=== PATIENT | male | born 1940 | race Caucasian/White ===

== ENCOUNTER 2017-09-18 16:24 | Inpatient (IN) | payer OTHER, MEDICARE ==
[~2017-09-18] VITALS: Ht 177.8 cm; Wt 92.3 kg
[~2017-09-18 16:24] MED LIST: ASPIR 8181 MG PO; DELTASONE20 MG PO; DIOVAN HCT 12.51 TA2 PO; JANUVIA100 M1 PO; LOPRESSOR 25MG25 MG PO; METFORMIN HYDR750 MG PO; PEPCID40 M1 PO; TAMSULOSIN HCL0.4 M1 PO; VITAMIN D1000 IU PO
--- NOTE | 2017-09-18 17:01 | ED GENERAL ADULT ---
History of Present Illness General Chief Complaint: Fever Stated Complaint: FEVER Source: patient, family (DAUGHTER) Exam Limitations: no limitations Vital Signs & Intake/Output Vital Signs & Intake/Output Vital Signs Date Time Temp Pulse Resp B/P B/P Pulse O2 O2 Flow FiO2 Mean Ox Delivery Rate 09/18 2208 98.2 69 20 122/70 94 Room Air 09/18 2113 Room Air 09/18 1958 100.2 77 18 122/59 93 Room Air 09/18 1839 102.7 75 18 131/64 94 Room Air 09/18 1640 95 Room Air 09/18 1635 99.5 79 18 161/77 95 Room Air Allergies Coded Allergies: Penicillins (UNKNOWN 11/17/15) Reconcile Medications Metformin HCl 1,000 MG TABLET 1 TAB PO BID DM (Reported) Omeprazole 20 MG CAPSULE.DR 1 CAP PO DAILY GI (Reported) Tamsulosin HCl 0.4 MG CAP.ER.24H 1 CAP PO DAILY PROSTATE (Reported) Valsartan/Hydrochlorothiazide (Valsartan-Hctz 80-12.5 MG Tab) 80 MG-12.5 MG TABLET 1 TAB PO DAILY HTN (Reported) Triage Note: 77 Y/O, BIBA FROM HOME FOR CONTINUOUS FEVER. PT HAS HX OF TYPE 2 DM AND CIRRHOSIS AND RECENTLY HAD A BASAL CELL CARCINOMA REMOVED X 2WKS AGO FROM EAR WITH STITCHES REMOVED LAST WEEK. PER FAMILY PT STARTED WITH FEVER ON SUN AND YESTERDAY HE WAS IN THE 102'S TILL TODAY. PT ARRIVES A/OX2 SLIGHTLY FEBRILE AT 99.5. PT TOOK 650MG OF TYLENOL AT 1400 FOR A FEVER OF 102. PT DENIES PAIM OR ANY DISCOMFORT AT PRESENT. AWAITING PROVIDER EVAL Triage Nurses Notes Reviewed? yes Onset: Abrupt Duration: day(s): (3), constant, continues in ED, getting worse Timing: single episode today Injury Environment: home Severity: moderate, severe No Modifying Factors: none Associated Symptoms: cough HPI: 77-year-old male past medical history of cirrhosis, diabetes, hypertension presents for evaluation of fever cough and congestion. Patient reports that symptoms started about 3 days ago not been persistent. He reports temperatures of 102 today. He had a chest x-ray and blood work done by his primary care doctor which were normal but his fever has persisted. He's been taking Tylenol thousand milligrams every 6 hours with only mild improvement. He denies any chest pain shortness of breath hemoptysis or lower extremity edema abdominal pain nausea vomiting. No rashes. He did recently have surgery 2 weeks ago to remove basal cell from behind his right ear. He also had an ultrasound done on the 16th of this month that showed a small volume ascites without other acute abnormalities. He has no abdominal pain no chest pain. No urinary symptoms. He also reports associated weakness. He states that he's been having difficulty getting out of bed and ambulating. No dizziness or lightheadedness. (Thierry Luke) Past History Travel History Traveled to [place] past 21 day No Medical History Any Pertinent Medical History? 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 No (Thierry Luke) Review of Systems Review of Systems Constitutional: Reports: fever, malaise, weakness. EENTM: Reports: no symptoms. Respiratory: Reports: see HPI, cough, sputum production. Cardiovascular: Reports: no symptoms. GI: Reports: no symptoms. Genitourinary: Reports: no symptoms. Musculoskeletal: Reports: no symptoms. Skin: Reports: no symptoms. Neurological/Psychological: Reports: no symptoms. Hematologic/Endocrine: Reports: no symptoms. Immunologic/Allergic: Reports: no symptoms. All Other Systems: Reviewed and Negative (Thierry Luke) Physical Exam Physical Exam General Appearance: well developed/nourished, no apparent distress, alert, awake Head: atraumatic, normal appearance Eyes: Bilateral: normal appearance, PERRL, EOMI. Ears, Nose, Throat: normal pharynx, normal ENT inspection, hearing grossly normal Neck: normal inspection, supple, full range of motion, NO JVD Respiratory: chest non-tender, no respiratory distress, quiet respiration, decreased breath sounds, crackles (RT SIDE) Cardiovascular: regular rate/rhythm, normal peripheral pulses Peripheral Pulses: 2+ radial (R), 2+ radial (L) Gastrointestinal: normal bowel sounds, soft, non-tender, no organomegaly, distention Back: normal inspection, normal range of motion, no vertebral tenderness Extremities: normal inspection, normal range of motion, no edema Neurologic/Psych: no motor/sensory deficits, awake, alert, oriented x 3 Skin: intact, normal color, warm/dry Lymphatic: no anterior cervical rubia Core Measures ACS in differential dx? No CVA/TIA Diagnosis: No Sepsis Present: No Sepsis Focused Exam Completed? No (Luis STEARNS,Thierry) Progress Differential Diagnoses I considered the following diagnoses in my evaluation of the patient: [Pneumonia , UTI, cellulitis, PE, acute bronchitis, influenza, COPD, CHF exacerbation, spontaneous bacterial peritonitis, cholangitis] Plan of Care: Orders Procedure Date/time Status Regular Diet 09/19 B Active CULTURE,URINE 09/19 2223 Active STREP PNEUMO URINARY ANTIGEN 09/19 2223 Active LEGIONELLA URINARY ANTIGEN 09/19 2223 Active LOWER RESPIRATORY CULTURE 09/19 2223 Active C.DIFFICILE 09/19 2223 Active Weight 09/18 2099 Active Vital Signs 09/18 2099 Active Teach/Educate 09/18 2099 Active Pain Treatment and Response 09/18 2099 Active Nutritional Intake, Monitor 09/18 2099 Active Isolation 09/18 2099 Active Intake & Output 09/18 2099 Active Patient Care Conference 09/18 2099 Active Activity/Ambulation 09/18 2099 Active Patient Data 09/18 2008 Active OXYGEN SETUP (GEN) 09/18 1958 Active Saline Lock 09/18 1958 Active Admit to inpatient 09/18 1958 Active Vital Signs 09/18 1958 Active Activity/Ambulation 09/18 1958 Active Code Status 09/18 1958 Active LACTIC ACID 09/18 1927 Complete Add-on Test (ER Only) 09/18 1748 Active Add-on Test (ER Only) 09/18 1743 Active PARTIAL THROMBOPLASTIN TIME 09/18 1705 Complete PROTHROMBIN TIME 09/18 1705 Complete B-TYPE NATRIURETIC PEP (BNP) 09/18 1705 Complete Add-on Test (ER Only) 09/18 1637 Active Intake & Output 09/18 1637 Active RAPID VIRAL INFLUENZA A 09/18 162 Complete BLOOD CULTURE 09/18 162 Active URINALYSIS 09/18 1627 Complete TROPONIN LEVEL 09/18 162 Complete LACTIC ACID 09/18 162 Complete D-DIMER 09/18 162 Complete COMPREHENSIVE METABOLIC PANEL 09/18 1627 Complete CBC WITHOUT DIFFERENTIAL 09/18 1626 Complete EKG 09/18 1626 Active Laboratory Tests 09/18/172009: Urine Color ABHINAV, Urine Clarity CLEAR, Urine pH 5.5, Ur Specific [place] 1.015, Urine Protein TRACE H, Urine Ketones NEG, Urine Nitrite NEG, Urine Bilirubin NEG@ICTO, Urine Urobilinogen 0.2, Ur Leukocyte Esterase NEG, Ur Microscopic SEDIMENT EXAMINED, Urine RBC RARE, Urine WBC RARE, Ur Epithelial Cells RARE, Urine Bacteria RARE H, Urine Hemoglobin NEG, Urine Glucose NEG 09/18/17 1922: Lactic Acid 2.0 09/18/17 180: PT 17.9 H, INR 1.63 H, APTT 39 H, D-Dimer High Sensitivty 2311 H 09/18/17 1705: Anion Gap 12, Estimated GFR 59 L, BUN/Creatinine Ratio 18.3, Glucose 127 H, Lactic Acid 2.6 H, Calcium 9.6, Total Bilirubin 2.6 H, AST 153 H, ALT 107 H, Alkaline Phosphatase 354 H, Troponin I < 0.01, Lfu-B-Eshetxyjibt Pept 739 H, Total Protein 8.6 H, Albumin 3.4 L, Globulin 5.2 H, Albumin/Globulin Ratio 0.7 L, RBC 4.86, MCV 93.7, MCH 31.9 H, MCHC 34.0, RDW 15.3 H, MPV 10.5 H, Gran % 58.9, Lymphocytes % 28.8, Monocytes % 10.1 H, Eosinophils % 1.8, Basophils % 0.4, Absolute Granulocytes 4.0, Absolute Lymphocytes 2.0, Absolute Monocytes 0.7 H, Absolute Eosinophils 0.1, Absolute Basophils 0 Microbiology 09/19 2223 URINE ROUT: Legionella Antigen - ORD 09/19 2223 URINE ROUT: Streptococcus pneumoniae Antigen (M - ORD 09/19 2223 URINE ROUT: Urine Culture - ORD 09/19 2223 LOWER RESP: Respiratory Culture - ORD 09/19 2223 LOWER RESP: Gram Stain - ORD 09/19 2223 STOOL: Clostridium difficile Toxin A & B - ORD 09/18 175 BLOOD: Blood Culture - RECD 09/18 172 NASOPHARYN: Influenza Virus A & B Rapid Smear - COMP 09/18 1705 BLOOD: Blood Culture - RECD Patient seen and evaluated. He currently has a low-grade temp of 99 that spiked up to 102 while here. He's been maxing out on Tylenol and has a history of cirrhosis. Patient was given 15 mg of IV Toradol with good effect. He has a mildly elevated lactic acid of 2.6. Fluids ordered. Chest x-ray shows evidence of peribronchial and interstitial thickening which could represent infectious versus pulmonary edema etiology. Patient does not appear to have any lower extremity edema OR JVD he has no history of CHF. Age-adjusted BNP negative. A CTA was ordered for further evaluation and to rule out PE. CTA shows evidence of interstitial edema versus infiltrate in the right upper and right lower lobe. Due to patient's history of fever cough productive of yellow sputum this likely represents a pneumonia. Patient was started on ceftriaxone and Zithromax. Cultures obtained. Patient will be admitted to the hospital for further evaluation and treatment. His abdomen is soft and nontender. Considered spontaneous bacterial peritonitis however there are no peritoneal signs he has no white count. Patient had a normal ultrasound on the . Case discussed with Dr. HILARIO he agrees. Diagnostic Imaging: Viewed by Me: CT Scan. Discussed w/RAD: CT Scan. Radiology Impression: PATIENT: CURTIS MOLINA JR PRESENT AGE: 77 PATIENT ACCOUNT NO: [id number] : 40 LOCATION: [facility] ORDERING PHYSICIAN: Thierry STEARNS SERVICE DATE: 09/18/17 EXAM TYPE: CAT - CTA CHEST-PULMONARY EMBOLISM EXAMINATION: CT ANGIOGRAM OF THE CHEST WITH AND WITHOUT CONTRAST (CT PULMONARY ANGIOGRAM FOR PE) CLINICAL INFORMATION: Reason for Study:
Presumptive Dx: PNA, PE
Signs Symptoms: COUGH FVEER SOB
COMPARISON: 07/27/2017 TECHNIQUE: Prior to contrast administration, noncontrast localization images were obtained. Subsequently, multidetector volumetric imaging was performed from the thoracic inlet to below the diaphragms following the administration of 80 mL Omnipaque 350 intravenous contrast. No contrast reaction reported. Sagittal, coronal, and MIP oblique sagittal reformatted images were obtained on the CT workstation, uploaded to PACS, and reviewed. Findings: This exam is limited. There is patient respiratory motion which limits the exam. Some small peripheral emboli cannot be excluded but there is certainly no central filling defect. Centrally once again there are prominent lymph nodes here. Precarinal lymph node 1.4 cm short axis. Subcarinal probable adenopathy. 1.6 cm short axis. This is prominent. Further evaluation is warranted. Imaging lung shields as described is limited due to this patient's respiratory motion artifact. Persistent nodularity in the right upper lung and in addition there is patchy areas of opacification in the right upper lung zone laterally and the right base. In the left lung no significant infiltrate or effusion. Some probable dependent atelectasis. There is also some interstitial prominence here bilaterally. Certainly element of CHF would need to be considered. Partial imaging the spleen demonstrates probable splenomegaly. There appears to be some ascites in the upper abdomen as well. IMPRESSION: There is some limitation from respiratory motion however given this there is no convincing evidence of a filling defect to represent a pulmonary embolism. If suspicion remains high then consider extremity Dopplers and/or VQ scan. Overall increased interstitial pattern in the lungs. Findings may suggest interstitial edema. In addition some focal airspace disease in the right upper lobe and right base represent edema or areas of infiltrate. Also on this study very prominent central lymphadenopathy. This may be reactive but malignancy would need to be considered. Recommendation is PET/CT to further evaluate in this patient. Partially imaged upper abdomen shows probable mild ascites and probable splenomegaly. DICTATED BY: Marcellus Maurer MD DATE/TIME DICTATED:09/18/171930 DEAN OF MEN:HOLA DATE/TIME TRANSCRIBED:09/18/171930 CONFIDENTIAL, DO NOT COPY WITHOUT APPROPRIATE AUTHORIZATION. <Electronically signed in Other Vendor System> SIGNED BY: Marcellus Maurer MD 09/18/171944 Initial ED EKG: normal sinus rhythm, BORDERLINE LEFT AXIS DEVIATION, BORDERLINE t-WAVE ABNORMALITIES INFERIOR LEADS Prior EKG: unchanged Rhythm Strip: normal sinus rhythm (Black PA,Thierry) Departure Departure Disposition: STILL A PATIENT Condition: Stable Clinical Impression Primary Impression: Pneumonia Qualifiers: Pneumonia type: due to unspecified organism Laterality: right Lung location: unspecified part of lung Qualified Code: J18.9 - Pneumonia, unspecified organism Referrals: Ever KENT,Maxi Marroquin (PCP/Family) Departure Forms: Customer Survey General Discharge Information Admission Note Spoke With: Car Thomas MD Documentation of Exam: Documentation of any treatments & extenuating circumstances including Concerns Regarding Discharge (functional status, medication knowledge or non-compliance, living conditions, etc.) that warrant an admission rather than observation: [ SERIAL LABS, SERIAL CHEST X-RAYS, IV ABX, CARDIOLOGY/PULMONOLOGY, MEDICATION ADJUSTMENT MONIORING OF VITAL SIGNS] (Thierry Luke) PA/CLINICAL STUDIES SPECIALIST Co-Sign Statement Statement: ED Attending supervision documentation- x I saw and evaluated the patient. I have also reviewed all the pertinent lab results and diagnostic results. I agree with the findings and the plan of care as documented in the PA's/CLINICAL STUDIES SPECIALIST's documentation. Fever, cough, weakness with pneumonia [] I have reviewed the ED Record and agree with the PA's/CLINICAL STUDIES SPECIALIST's documentation. [] Additions or exceptions (if any) to the PAs/CLINICAL STUDIES SPECIALIST's note and plan are summarized below: [] (Shirin KENT,Sunny) Critical Care Note Critical Care Note Critical Care Time: non-applicable (Thierry Luke)
--- NOTE | 2017-09-18 17:11 | RADIOLOGY REPORT ---
EXAMINATION: XR PORTABLE CHEST CLINICAL INFORMATION: Pneumonia. Fever. COMPARISON: 09/17/2017 TECHNIQUE: AP portable upright view of the chest FINDINGS: Lung volumes are low. There is prominence of the peribronchial vascular interstitium with bronchial wall thickening. This could be due to pulmonary venous congestion and bilateral interstitial edema or small airways inflammation. No focal consolidation is identified. No pleural effusion or pneumothorax. IMPRESSION: Thickening of the central bronchial interstitium which could be due to airways inflammation from viral/atypical infection. Pulmonary interstitial edema and venous congestion also possible.
[2017-09-18] MEDS ORDERED: OMEPRAZOLE20 M2 PO (17:14)
[2017-09-18] MEDS ORDERED: METFORMIN HCL1000 M1 PO (17:14)
[2017-09-18] MEDS ORDERED: VALSARTAN-HCTZ1 EACH PO (17:14)
[2017-09-18 18:10] LABS: ABSOLUTE BASOPHIL COUNT 0 /CUMM (0.0-0.2); ABSOLUTE EOSINOPHIL COUNT 0.1 /CUMM (0.0-0.7); ABSOLUTE MONOCYTE COUNT 0.7 /CUMM (0.10-0.60); BASOPHIL % 0.4 % (0.0-2.0); EOSINOPHIL % 1.8 % (0-5); GRANULOCYTE % 58.9 % (42.2-75.2); HEMATOCRIT 45.6 % (42-52); MEAN CORPUSCULAR HGB 31.9 PG (27.0-31.0); MEAN CORPUSCULAR VOLUME 93.7 FL (80.0-94.0); MEAN PLATELET VOLUME 10.5 FL (7.4-10.4); RBC DISTRIBUTION WIDTH 15.3 % (11.5-14.5); RED BLOOD CELL CT 4.86 /CUMM (4.70-6.10); WHITE BLOOD CELL COUNT 6.8 /CUMM (4.8-10.8)
[2017-09-18 18:12] LABS: PLATELET COUNT 48 /CUMM (130-400)
[2017-09-18 18:20] LABS: PT 17.9 SEC (9.4-12.5); PTT 39 SEC (25-37)
--- NOTE | 2017-09-18 19:45 | CT SCAN REPORT ---
EXAMINATION: CT ANGIOGRAM OF THE CHEST WITH AND WITHOUT CONTRAST (CT PULMONARY ANGIOGRAM FOR PE) CLINICAL INFORMATION: Reason for Study:
Presumptive Dx: PNA, PE
Signs Symptoms: COUGH FVEER SOB
COMPARISON: 07/27/2017 TECHNIQUE: Prior to contrast administration, noncontrast localization images were obtained. Subsequently, multidetector volumetric imaging was performed from the thoracic inlet to below the diaphragms following the administration of 80 mL Omnipaque 350 intravenous contrast. No contrast reaction reported. Sagittal, coronal, and MIP oblique sagittal reformatted images were obtained on the CT workstation, uploaded to PACS, and reviewed. Findings: This exam is limited. There is patient respiratory motion which limits the exam. Some small peripheral emboli cannot be excluded but there is certainly no central filling defect. Centrally once again there are prominent lymph nodes here. Precarinal lymph node 1.4 cm short axis. Subcarinal probable adenopathy. 1.6 cm short axis. This is prominent. Further evaluation is warranted. Imaging lung shields as described is limited due to this patient's respiratory motion artifact. Persistent nodularity in the right upper lung and in addition there is patchy areas of opacification in the right upper lung zone laterally and the right base. In the left lung no significant infiltrate or effusion. Some probable dependent atelectasis. There is also some interstitial prominence here bilaterally. Certainly element of CHF would need to be considered. Partial imaging the spleen demonstrates probable splenomegaly. There appears to be some ascites in the upper abdomen as well. IMPRESSION: There is some limitation from respiratory motion however given this there is no convincing evidence of a filling defect to represent a pulmonary embolism. If suspicion remains high then consider extremity Dopplers and/or VQ scan. Overall increased interstitial pattern in the lungs. Findings may suggest interstitial edema. In addition some focal airspace disease in the right upper lobe and right base represent edema or areas of infiltrate. Also on this study very prominent central lymphadenopathy. This may be reactive but malignancy would need to be considered. Recommendation is PET/CT to further evaluate in this patient. Partially imaged upper abdomen shows probable mild ascites and probable splenomegaly.
--- NOTE | 2017-09-18 20:37 | History & Physical ---
RonnyMaier 09/18/172035: General Information and HPI MD Statement: I have seen and personally examined CURTIS MOLINA and documented this H&P. The patient is a 77 year old M who presented with a patient stated chief complaint of generalized weakness and fever for 4-5 days []. Source of Information: patient, old records Exam Limitations: no limitations History of Present Illness: 77 YO M ex smoker with PMH of HTN, DM, alcoholic liver cirrhosis, the ventral hernia status post repair, cecal polyp status post right colectomy, chronic diarrhea, BPH, basal cell CA behind right ear s/p excision, obstructive sleep apnea on CPAP, thrombocytopenia and bilateral knee replacement came to ED with chief complaint of generalized weakness with fever for last 4-5 days. Patient reported that he was in his usual state of health about 5 days back when he suddenly started to notice generalized weakness and fever that goes up at nighttime. Patient also reported having sweating at nighttime. Patient also reported having loose bowel movements going on for last couple months. Patient reported that he called Dr. Boone and he advised him to go to ED for further evaluation. Patient denied any chest pain, short of breath, palpitation, dizziness, headache , nausea, vomiting, abdominal pain, constipation, loss of consciousness, sick contact, change in appetite and dysuria. Patient also reported that when he came to the hospital then he developed cough with whitish colored sputum. According to the patient before that there was no cough and sputum. 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 He used to drink 12 drinks every day usually vodka and wine. He is living with his and she is taking care of his medications. Patient also reported having orange colored urine for last couple of months. Last colonoscopy was done in July 2017 that showed transverse colon polyps and polypectomy was done. For chronic diarrhea patient was given Imodium and instructed to follow pathology report as outpatient. Endoscopy was done on same day that showed grade 2-3 esophageal varices without bleeding and moderate portal hypertensive gastropathy. Erosive gastritis and biopsies were taken and instructed to follow outpatient pathology results. Last echocardiogram was done in 2013 that showing ejection fraction more than 60 % with stage I diastolic dysfunction. ED course: Vitals: Temperature 1-2.7, pulse 75, respiratory rate 18, blood pressure 131/64, oxygen saturation 94% on room air Labs: WBC count 6.8, hemoglobin 15.5, hematocrit 45.6, platelet count 48, sodium 138, potassium 4.4, BUN 22, creatinine 1.2, anion gap 12, BUN/creatinine ratio 18.3, glucose 127, lactic acid 2.6, calcium 9.6, total bilirubin 2.6, AST 153, ALT 107, it was rated 354, troponin less than 0.01, proBNP 739, albumin 3.4, globulin 5.0, albumin/globulin ratio 0.7 Patient received 2 boluses of normal saline in ED because of elevated lactic acid. Allergies/Medications Allergies: Coded Allergies: Penicillins (UNKNOWN 11/17/15) Home Med list Metformin HCl 1,000 MG TABLET 1 TAB PO BID DM (Reported) Nadolol 20 MG TABLET 1 TAB PO DAILY LIVER HEALTH (Reported) Omeprazole 20 MG CAPSULE.DR 1 CAP PO DAILY GI (Reported) Tamsulosin HCl 0.4 MG CAP.ER.24H 1 CAP PO DAILY PROSTATE (Reported) Valsartan/Hydrochlorothiazide (Valsartan-Hctz 80-12.5 MG Tab) 80 MG-12.5 MG TABLET 1 TAB PO DAILY HTN (Reported) Past History Travel History Traveled to [place] past 21 day No Medical History Neurological: NONE EENT: NONE Cardiovascular: hypertension Respiratory: NONE Gastrointestinal: ventral hernia CIRRHOSIS Hepatic: NONE Renal: NONE Musculoskeletal: NONE Psychiatric: NONE Endocrine: diabetes Blood Disorders: NONE Cancer(s): NONE MANAGER OPERATIONS RESEARCH/Reproductive: NONE Surgical History Surgical History: colon polyp excision Past Family/Social History Psychosocial History Services at Home: None ETOH Use: occasional use Illicit Drug Use: denies illicit drug use Review of Systems Review of Systems Constitutional: Reports: fever, weakness. EENTM: Reports: no symptoms. Cardiovascular: Reports: no symptoms. Respiratory: Reports: see HPI. GI: Reports: diarrhea. Genitourinary: Reports: no symptoms. Musculoskeletal: Reports: no symptoms. Skin: Reports: no symptoms. Neurological/Psychological: Reports: no symptoms. Hematologic/Endocrine: Reports: no symptoms. Exam & Diagnostic Data Last 24 Hrs of Vital Signs/I&O Vital Signs Date Time Temp Pulse Resp B/P B/P Pulse O2 O2 Flow FiO2 Mean Ox Delivery Rate 09/19 0045 98.0 62 20 128/72 95 Room Air 09/18 2209 98.2 69 20 122/70 94 Room Air 09/18 2114 Room Air 09/18 1959 100.2 77 18 122/59 93 Room Air 09/18 1839 102.7 75 18 131/64 94 Room Air 09/18 1640 95 Room Air 09/18 1635 99.5 79 18 161/77 95 Room Air Intake & Output 09/19 0800 09/19 0000 09/18 1600 Intake Total 1000 Output Total Balance 1000 Intake, IV 1000 Patient 175 lb Weight Weight Reported by Patient Measurement Method Physical Exam General Appearance Alert, Oriented X3, Cooperative, No Acute Distress Skin No Rashes Skin Temp/Moisture Exam: Warm/Dry Sepsis Skin Exam (color): Normal for Ethnicity HEENT Atraumatic, PERRLA, EOMI Neck Supple Cardiovascular Normal S1, Normal S2 Lungs B/L crackles more on left side Abdomen Soft, No Tenderness Neurological Normal Speech, Strength at 5/5 X4 Ext, Normal Tone, Sensation Intact Extremities No Edema Assessment/Plan Assessment: 77 YO M ex smoker with PMH of HTN, DM, alcoholic liver cirrhosis, the ventral hernia status post repair, cecal polyp status post right colectomy, chronic diarrhea, BPH, basal cell CA behind right ear s/p excision, obstructive sleep apnea on CPAP, thrombocytopenia and bilateral knee replacement came to ED with chief complaint of generalized weakness with fever for last 4-5 days. We'll admit the patient on general medicine floor to treat for possible community-acquired pneumonia. Community-acquired pneumonia: -Supplemental oxygen if needed to keep his saturation above 92% -TRC nebulization as needed -Continue ceftriaxone and azithromycin -Urine for strep and legionella antigen -We will follow blood and sputum cultures -Trend lactic acid. -Chest physiotherapy History of alcoholic liver cirrhosis: -Continue nadolol for portal hypertension -Continue omeprazole -GI consult in a.m. -Ultrasound abdomen for ascites -Follow LFTs. Chronic thrombocytopenia: -Possibly due to alcoholic liver cirrhosis and portal hypertension. -Avoid any medication that decreases the function or count of platelets History of hypertension: -Continue home meds History of diabetes: -Accu-Cheks -HbA1c -Insulin NovoLog according to sliding scale History of BPH: -Continue tamsulosin DVT prophylaxis; -Mechanical only considering thrombocytopenia CODE STATUS: Full code As Ranked By This Provider Problem List: 1. Pneumonia Qualifiers Pneumonia type: due to unspecified organism Laterality: right Lung location: unspecified part of lung Qualified Code: J18.9 - Pneumonia, unspecified organism 2. Liver cirrhosis Core Measures/Misc (03/17) Acute Coronary Syndrome ACS Diagnosis: No Congestive Heart Failure Congestive Heart Failure Diagnosis No Cerebrovascular Accident CVA/TIA Diagnosis: No VTE (View Protocol) VTE Risk Factors Age>40 No Mechanical VTE Prophylaxis d/t N/A MechProphylax Ordered No VTE Pharm Prophylaxis d/t NA PharmProphylax ordered Sepsis (View protocol) Sepsis Present: No Estefany Del Toro 09/19/17 0201: Resident Review Statement Resident Statement: examined this patient, discussed with chief of internal medicine, agreed with chief of internal medicine Other Findings: Patient is 77-year-old male with past medical history significant for [id number] diabetes, hypertension, cecal polyp status post right colectomy, BPH, alcoholic liver cirrhosis, remote history of alcohol abuse 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 Patient endorses that since last he was experiencing chills and fever almost every night and also becoming more and more weak and lethargic. He has normal oral intake without any episodes of nausea, vomiting. He had chronic diarrhea for last 4 weeks where he had loose bowel movements multiple times a day. He does not remember using any antibiotics recently. From claim history it showed that he had clindamycin in March 2017. He used to drink 10-12 hard drinks per week for many years to March 2017 when he was diagnosed with cirrhosis. He is following Dr. Boone as outpatient on regular basis. Last colonoscopy and endoscopy was on 2017 showed erosive gastritis and moderate portal hypertensive gastropathy without gastroparesis. Patient denied any episodes of hematemesis. He endorses to have orange colored urine for last few months and also black stools for some time. He denied any diagnostic or therapeutic paracentesis in the past. Vital signs on admission were temperature 99.5 and he spiked 100 O2 around 6:39 PM, pulse 75, respiratory rate 18, blood pressure 131/64 and he saturating 94% on room air. Labs were significant for WBC count 6.8, hemoglobin 15.5, hematocrit 45.6, platelet count 48, sodium 138, potassium 4.4, BUN 22, creatinine 1.2, bilirubin 2.6, AST 153, AST 107, alkaline phosphatase 354, proBNP 739 Chest CTA showed no evidence of PE, persistent nodularity in the right upper lung and in addition there is patchy areas of opacification in right upper lung zone laterally in the right base. No significant infiltrate or effusion in left lung. EKG showed normal sinus rhythm with no acute ST-T wave changes On examination Alert and oriented 3 Head atraumatic HEENT PERRLA, moist mucous membranes Neck supple no JVD Chest auscultation showed bilateral basal crackles and rhonchi Abdomen protuberant, fluid thrill negative, no organomegaly, no tenderness, Extremities showed no peripheral edema Neurological deficit noted Assessment and plan 77-year-old male with a history of alcohol abuse, alcoholic liver cirrhosis, hypertension, diabetes, cecal polyp status post nephrectomy came in with chief complaint of worsening pathology weakness and intermittent fever for 4-5 days with imaging study concerning for pneumonia. Problem list 1. Fever and right lung infiltrate concerning for community-acquired pneumonia 2. History of ascites and liver cirrhosis to rule out SBP 3. History of hypertension 4. History of phd-ipofltv-qmfcxhvod diabetes 5. chronic thrombocytopenia Plan 1. We will admit patient to general medical floor and we will monitor his WBC count, electrolytes and liver functions. He has history of chronic thrombocytopenia and we will monitor his platelet counts. 2. We will start ceftriaxone and azithromycin for pneumonia and also ceftriaxone Will cover SBP as well as patient spiked fever and presence of ascites. Suspicion of SBP most likely slow given benign abdominal examination. 3. We will request abdominal ultrasound in the morning and if it there would be enough fluid to aspirate we will request diagnostic paracenteses 4. We will continue his home medications 5. We will request GI evaluation in a.m. 6. Close monitoring for any evidence of petechiae or bleeding Patient is full code No pharmacological DVT prophylaxis due to thrombocytopenia Heart healthy diet William KENT, [facility] 09/19/17 0639: Attending MD Review Statement Attending Statement Attending MD Statement: examined this patient, discuss w/resident/PA/TOOL PROFILING MACHINE SET UP OPERATOR, agreed w/resident/PA/TOOL PROFILING MACHINE SET UP OPERATOR, reviewed images, amended to note Attending Assessment/Plan: 77 yo M with h/o T2DM, HTN, YANG, recent diagnosis of alcoholic liver cirrhosis, is here for evaluation of fever, weakness and lethargy. Symptoms are ongoing for past 4-5 days. Tmax 102. His PCP did a CXR and CBC/BEP one day prior, negative work up. ER notes state that patient has been using tylenol every 6 hours, but patient does not confirm that. He reports having a cough productive of white/ yellow phlegm and states he just started having it. Night sweats++. He has chronic diarrhea for which he followed up with Dr. Boone, underwent EGD/ colonoscopy (Jul 2017). EGD showed grade 2-3 esophageal varices, portal hypertensive gastropathy and erosive gastritis. Colonoscopy showed single polyp (path negative), nonspecific colitis and internal hemorrhoids. I informed him about the results as he did not know about them. He does not know what meds he is on. He had an abdomen ultrasound on September 13 which shows small volume of ascites, gallbladder diffusely thick walled related to ascites, multiple gallstones and cholesterol crystals seen, enlarged spleen with multiple small massess ?hemangiomas. He denies abdominal distension or pain. Vitals: Tmax 102, sats 92% RA, otherwise stable. Exam: AAO, mild icterus+, dry mucous membranes, neck supple, Chest right sided rhonchi+, no wheezing or crackles, Heart S1S2 regular, Abd soft, distended, no tenderness, LE: no edema. Labs: no leukocytosis, Plt 48, INR 1.63, D-dimer elevated, BUN 22, lactic acid 2.6, T. Bili 2.6, AST 153, ALT 107, Alk phos 354, proBNP 739. Trop neg. UA neg. CXR: thickening of central bronchial insterstitium airways inflammation from viral/atypical infection. Pulmonary edema and venous congestion possible. CTA chest: no PE, focal airspace disease right upper lobe and right base infiltrate vs interstitial edema, prominent central lymphadenopathy ?reactive. EKG: sinus rhythm, no acute changes. Echo (2013): EF >60%, stage 1 diastolic dysfunction. Assessment and plan: 1. Fever most likely source being acute bronchitis with right sided pneumonia 2. Elevated liver enzymes in this patient with alcoholic liver cirrhosis. 3. Possible alcoholic hepatitis. Rule out SBP. 4. Lactic acidosis 5. Chronic thrombocytopenia 6. Coagulopathy 2/2 alcoholic liver disease 7. Diarrhea ?work up - Admit to general medicine - [facility] nebs - Panculture, urine strep and legionella Ag - IV ceftriaxone and azithro for now - Check tylenol levels and hepatitis panel - Transaminases are elevated but not increased from 1 month prior, however T. Bili is increased. - Fractionate T.bili - Holding off on NAC for now - Please obtain collateral information from daughter as to how much tylenol patient took - Recent abdomen ultrasound showed small volume ascites, may not be enough to tap. - GB thick walled due to ascites and multiple gallstones. Unclear if fever is of biliary origin. - Serial abdomen exam - GI consult in AM - Hold HCTZ, valsartan, metformin. - Continue nadolol and omeprazole - No NSAIDs DVT ppx Alps. Full code.
[2017-09-18 22:09] VITALS: BP 122/70
[2017-09-19] MEDS ORDERED: NADOLOL20 M1 PO (00:43)
[2017-09-19 00:45] VITALS: BP 128/72
--- NOTE | 2017-09-19 01:01 | Admission Certification ---
Admission Certification Certification Statement - As attending physician, I certify that at the time of - admission, based on clinical presentation, severity of - symptoms, need for further diagnostic testing and - therapeutic interventions, and risk of adverse outcomes - without in-hospital treatment, in my clinical assessment, - this patient requires an acute hospital stay for a minimum - of two nights or longer. I have also considered psychsocial - factors such as support system, advanced age, financial - issues, cognitive issues, and failed out-patient treatments, - past re-admission history, safety of patient, and lack of - compliance as applicable. Specific rationale supporting this admission is: Fever, community acquired pneumonia, elevated liver enzymes in the setting of alcoholic liver cirrhosis.
[2017-09-19 06:35] VITALS: BP 138/72
--- NOTE | 2017-09-19 07:03 | PN- Housestaff ---
Penelope William MD 09/19/17 0703: Subjective Follow-up For: Pneumonia, hepatic encephalopathy Complaints: no complaints Subjective: Patient was seen and examined at bedside. He was sitting in his bed comfortably. No overnight events. He offers no complaints. He denies chest pain, chest pressure, nausea, vomiting, abdominal pain. His last bowel movement was yesterday. Review of Systems Constitutional: Reports: see HPI. Objective Last 24 Hrs of Vital Signs/I&O Vital Signs Date Time Temp Pulse Resp B/P B/P Pulse O2 O2 Flow FiO2 Mean Ox Delivery Rate 09/19 1424 Room Air 09/19 1124 86 138/72 09/19 1035 86 138/72 09/19 1035 86 138/72 09/19 0821 98.5 09/19 0800 92 Room Air 09/19 0635 101.2 86 20 138/72 92 Room Air 09/19 0559 101.2 09/19 0045 98.0 62 20 128/72 95 Room Air 09/18 2209 98.2 69 20 122/70 94 Room Air 09/18 2114 Room Air 09/18 1959 100.2 77 18 122/59 93 Room Air 09/18 1839 102.7 75 18 131/64 94 Room Air 09/18 1640 95 Room Air 09/18 1635 99.5 79 18 161/77 95 Room Air Intake & Output 09/19 1600 09/19 0800 09/19 0000 Intake Total 500 1000 Output Total 300 200 Balance 200 -200 1000 Intake, IV 1000 Intake, Oral 500 Number 2 Bowel Movements Output, Urine 300 200 Patient 195 lb 175 lb Weight Weight Reported by Patient Measurement Method Physical Exam General Appearance: Alert, Oriented X3, Cooperative, No Acute Distress Skin: No Rashes, No Breakdown Cardiovascular: Regular Rate, Normal S1, Normal S2, No Murmurs Lungs: Clear to Auscultation Abdomen: Soft, No Tenderness, No Hepatospenomegaly, no fluid thrill Neurological: Normal Speech, Strength at 5/5 X4 Ext, Normal Tone, Sensation Intact Current Medications: Current Medications Sig/Dimple Start time Last Medication Dose Route Stop Time Status Admin Acetaminophen 1,000 MG ONCE ONE 09/19 0600 DC 09/19 IV 09/19 0601 0559 Azithromycin 500 MG Q24H 09/19 2030 AC Dextrose/Water 250 ML IV Azithromycin 500 MG ONCE ONE 09/18 2014 DC 09/18 Dextrose/Water 250 ML IV 09/18 Ceftriaxone Sodium 1,000 MG Q24H 09/19 2029 AC IV Ceftriaxone Sodium 0 .STK-MED ONE 09/18 2028 DC .ROUTE Ceftriaxone Sodium 1,000 MG ONCE ONE 09/18 2014 DC 09/18 IV 09/18 Docusate Sodium 100 MG BID 09/19 1000 AC 09/19 PO 1035 Hydrochlorothiazide 12.5 MG DAILY 09/19 1000 AC 09/19 PO 1035 Insulin Aspart 0 TIDAC 09/19 1200 AC SC Insulin Aspart 0 TIDAC 09/19 0800 DC SC Ketorolac 0 .STK-MED ONE 09/18 1909 DC Tromethamine .ROUTE Ketorolac 15 MG ONCE ONE 09/18 1845 DC 09/18 Tromethamine IV 09/18 1846 1858 Lactulose 20 GM BID 09/19 1429 UNVr PO Losartan Potassium 50 MG DAILY 09/19 1000 AC 09/19 PO 1035 Nadolol 20 MG DAILY 09/19 1000 AC 09/19 PO 1124 Omeprazole 20 MG DAILY 09/19 1000 AC 09/19 PO 1035 Patient Medication 1 ED ONE ONE 09/19 1145 DC Teaching ED 09/19 1146 Polyethylene Glycol 17 GM DAILY 09/19 1000 AC 09/19 PO 1034 Sodium Chloride 1,000 ML BOLUS ONE 09/18 1745 DC 09/18 IV 09/18 1844 1858 Sodium Chloride 1,000 ML BOLUS ONE 09/18 1700 DC 09/18 IV 09/18 1759 1753 Tamsulosin HCl 0.4 MG DAILY 09/19 1000 AC 09/19 PO 1035 Last 24 Hrs of Lab/Sonu Results Last 24 Hrs of Labs/Mics: Laboratory Tests 09/19/17 0901: Total Bilirubin Cancelled, Direct Bilirubin Cancelled, AST Cancelled, ALT Cancelled, Alkaline Phosphatase Cancelled, Total Protein Cancelled, Albumin Cancelled, Acetaminophen Cancelled 09/19/17 0901: Total Bilirubin 2.5 H, Direct Bilirubin 1.3 H, AST 117 H, ALT 91 H, Alkaline Phosphatase 289 H, Total Protein 7.2, Albumin 2.8 L, Acetaminophen < 10.0 L 09/19/17 0705: Anion Gap 13, Estimated GFR 59 L, BUN/Creatinine Ratio 20.0, Total Bilirubin 2.6 H, Direct Bilirubin 1.5 H, AST 118 H, ALT 93 H, Alkaline Phosphatase 292 H, Total Protein 7.3, Albumin 2.7 L, CBC w Diff MAN DIFF ORDERED, RBC 4.74, MCV 93.5, MCH 32.0 H, MCHC 34.2, RDW 15.7 H, MPV 10.7 H, Gran % 70.4, Lymphocytes % 18.7 L, Monocytes % 9.3, Eosinophils % 1.2, Basophils % 0.4, Absolute Granulocytes 5.0, Segmented Neutrophils 68, Band Neutrophils 12 H, Absolute Lymphocytes 1.3, Lymphocytes 14 L, Monocytes 6, Absolute Monocytes 0.7 H, Absolute Eosinophils 0.1, Absolute Basophils 0, Anisocytosis 1+ 09/18/172009: Urine Color ABHINAV, Urine Clarity CLEAR, Urine pH 5.5, Ur Specific [place] 1.015, Urine Protein TRACE H, Urine Ketones NEG, Urine Nitrite NEG, Urine Bilirubin NEG@ICTO, Urine Urobilinogen 0.2, Ur Leukocyte Esterase NEG, Ur Microscopic SEDIMENT EXAMINED, Urine RBC RARE, Urine WBC RARE, Ur Epithelial Cells RARE, Urine Bacteria RARE H, Urine Hemoglobin NEG, Urine Glucose NEG 09/18/17 1922: Lactic Acid 2.0 09/18/17 1801: PT 17.9 H, INR 1.63 H, APTT 39 H, D-Dimer High Sensitivty 2311 H 09/18/17 1705: Anion Gap 12, Estimated GFR 59 L, BUN/Creatinine Ratio 18.3, Glucose 127 H, Lactic Acid 2.6 H, Calcium 9.6, Total Bilirubin 2.6 H, AST 153 H, ALT 107 H, Alkaline Phosphatase 354 H, Troponin I < 0.01, Msf-Y-Bvhnveykpws Pept 739 H, Total Protein 8.6 H, Albumin 3.4 L, Globulin 5.2 H, Albumin/Globulin Ratio 0.7 L, RBC 4.86, MCV 93.7, MCH 31.9 H, MCHC 34.0, RDW 15.3 H, MPV 10.5 H, Gran % 58.9, Lymphocytes % 28.8, Monocytes % 10.1 H, Eosinophils % 1.8, Basophils % 0.4, Absolute Granulocytes 4.0, Absolute Lymphocytes 2.0, Absolute Monocytes 0.7 H, Absolute Eosinophils 0.1, Absolute Basophils 0, Acetaminophen < 10.0 L Microbiology 09/19 1043 URINE ROUT: Legionella Antigen - RES 09/19 1043 URINE ROUT: Streptococcus pneumoniae Antigen (M - RES 09/19 1043 URINE ROUT: Urine Culture - RES 09/19 0751 LOWER RESP: Respiratory Culture - CAN Cancelled: NUMBER OF SQUAMOUS CELLS INDICATES POOR QUALITY SPECIMEN 09/19 0751 LOWER RESP: Gram Stain - CAN Cancelled: NUMBER OF SQUAMOUS CELLS INDICATES POOR QUALITY SPECIMEN 09/18 2224 STOOL: Clostridium difficile Toxin A & B - CAN Cancelled: NO SAMPLE COLLECTED 09/18 1750 BLOOD: Blood Culture - RES 09/18 1725 NASOPHARYN: Influenza Virus A & B Rapid Smear - COMP 09/18 1705 BLOOD: Blood Culture - RES Assessment/Plan Assessment: Patient is 77-year-old male with past medical history significant for tdx-dhashpv-ebjlotcsv diabetes, hypertension, cecal polyp status post right colectomy, BPH, alcoholic liver cirrhosis, remote history of alcohol abuse 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 Assessment and plan 1. Community-acquired pneumonia-patient has right upper lobe pneumonia treated with IV ceftriaxone and azithromycin. Will continue TRC nebulization. Continue cough syrup. On CAT scan patient has central lymphadenopathy. Malignancy needs to be ruled out. We will involve pulmonology on board. His pneumonia can be postobstructive too. 2. Hepatic encephalopathy-upon admission patient was confused. This can be secondary due to pneumonia. 3. Patient didn't have a bowel movement. We will add lactulose 30 mL twice a day. 4. There was a question of increased Tylenol use during admission. Tylenol level as been sent. We'll follow with that. 5. Initially the admitting team ordered were not present abdomen and after discussing with Dr. Coronel ultrasound abdomen was deferred because patient had recently ultrasound abdomen done on September 13 which showed small ascitis. Code-full code Diet-diabetic diet Problem List: 1. Pneumonia 2. Liver cirrhosis Pain Ratin Pain Location: none Pain Goal: Remain pain free Pain Plan: tylenol Tomorrow's Labs & Rationales: cbc,bep Rashawn,Josef 09/19/17 1242: Attending MD Review Statement Attending Statement Attending MD Statement: examined this patient, discuss w/resident/PA/SIEBEL SOLUTION ARCHITECT, agreed w/resident/PA/SIEBEL SOLUTION ARCHITECT, discussed with family, reviewed EMR data (avail), discussed with nursing, discussed with case mgmt, reviewed images, amended to note Attending Assessment/Plan: 77 o/m with pmh of liver cirrhosis admitted with fever and cough with shortness of breath on exertion. CTA reveals Focal airspace disease in the right upper lobe and right base suggestive of edema and infiltrate with lymphadenopathy. Patient admitted with impression of possible community acquired pneumonia started on ceftriaxone and azithromycin. Panculture sent. GI consulted, Obtain RUQ imaging. Patient spiked fever in past 24 hrs. Monitor hemodyamics.
[2017-09-19 08:36] LABS: ABSOLUTE BASOPHIL COUNT 0 /CUMM (0.0-0.2); ABSOLUTE EOSINOPHIL COUNT 0.1 /CUMM (0.0-0.7); ABSOLUTE LYMPH COUNT 1.3 /CUMM (1.2-3.4); ABSOLUTE MONOCYTE COUNT 0.7 /CUMM (0.10-0.60); BASOPHIL % 0.4 % (0.0-2.0); EOSINOPHIL % 1.2 % (0-5); GRANULOCYTE % 70.4 % (42.2-75.2); HEMATOCRIT 44.4 % (42-52); MEAN CORPUSCULAR HGB CONC 34.2 G/DL (33.0-37.0); MEAN CORPUSCULAR VOLUME 93.5 FL (80.0-94.0); MEAN PLATELET VOLUME 10.7 FL (7.4-10.4); RBC DISTRIBUTION WIDTH 15.7 % (11.5-14.5); RED BLOOD CELL CT 4.74 /CUMM (4.70-6.10); WHITE BLOOD CELL COUNT 7.1 /CUMM (4.8-10.8)
[2017-09-19 09:45] LABS: PLATELET COUNT 47 /CUMM (130-400)
--- NOTE | 2017-09-19 13:13 | Cons- Gastroenterology ---
General Information and HPI Consulting Request Date of Consult: 09/19/17 Requested By: Josef Morocho MD Reason for Consult: 1. Cirrhosis 2. Change in mental status 3. Shortness of breath 4. Abdominal distention Source of Information: Electronic Medical Record Exam Limitations: unable to give history History of Present Illness: Mr. Munson is a 77-year-old male with a known history of cirrhosis who presents to [facility] ED with a one-week history of fever, night sweats and weakness. He called Dr. Gilles Boone who is seen him in the past who advised him to come to the ED. Upon arrival in the ED given a complaint of shortness of breath patient underwent chest CTA. The results are as follows Centrally once again there are prominent lymph nodes here. Precarinal lymph node 1.4 cm short axis. Subcarinal probable adenopathy. 1.6 cm short axis. This is prominent. Further evaluation is warranted. Imaging lung shields as described is limited due to this patient's respiratory motion artifact. Persistent nodularity in the right upper lung and in addition there is patchy areas of opacification in the right upper lung zone laterally and the right base. In the left lung no significant infiltrate or effusion. Some probable dependent atelectasis. There is also some interstitial prominence here bilaterally. Certainly element of CHF would need to be considered. Partial imaging the spleen demonstrates probable splenomegaly. There appears to be some ascites in the upper abdomen as well. IMPRESSION: There is some limitation from respiratory motion however given this there is no convincing evidence of a filling defect to represent a pulmonary embolism. If suspicion remains high then consider extremity Dopplers and/or VQ scan. Overall increased interstitial pattern in the lungs. Findings may suggest interstitial edema. In addition some focal airspace disease in the right upper lobe and right base represent edema or areas of infiltrate. Also on this study very prominent central lymphadenopathy. This may be reactive but malignancy would need to be considered. Recommendation is PET/CT to further evaluate in this patient. Partially imaged upper abdomen shows probable mild ascites and probable splenomegaly. 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 He also had a colonoscopy with random biopsies given a history of diarrhea. Biopsies were negative for microscopic colitis. He had an ultrasound on 09/13/2017 the results of which are as folllows: 1. Small volume ascites is now seen in the abdomen. 2. Gallbladder appears diffusely thick walled, likely related to the surrounding ascites. Multiple gallstones and cholesterol crystals are seen. 3. Enlarged spleen with multiple small echogenic masses. These are of uncertain etiology, possibly representing hemangiomas. Depending on clinical circumstances, short interval follow-up ultrasound in 3 months is suggested to exclude interval increase in size of these masses versus alternatively further assessment with MRI scan. History is obtained from the chart as patient is somewhat confused. Allergies/Medications Allergies: Coded Allergies: Penicillins (UNKNOWN 11/17/15) Home Med List: Metformin HCl 1,000 MG TABLET 1 TAB PO BID DM (Reported) Nadolol 20 MG TABLET 1 TAB PO DAILY LIVER HEALTH (Reported) Omeprazole 20 MG CAPSULE.DR 1 CAP PO DAILY GI (Reported) Tamsulosin HCl 0.4 MG CAP.ER.24H 1 CAP PO DAILY PROSTATE (Reported) Valsartan/Hydrochlorothiazide (Valsartan-Hctz 80-12.5 MG Tab) 80 MG-12.5 MG TABLET 1 TAB PO DAILY HTN (Reported) Current Medications: Current Medications Sig/Dimple Start time Last Medication Dose Route Stop Time Status Admin Acetaminophen 1,000 MG ONCE ONE 09/19 0600 DC 09/19 IV 09/19 0601 0559 Azithromycin 500 MG Q24H 09/19 2029 AC Dextrose/Water 250 ML IV Azithromycin 500 MG ONCE ONE 09/18 2014 DC 09/18 Dextrose/Water 250 ML IV 09/18 Ceftriaxone Sodium 1,000 MG Q24H 09/19 2030 AC IV Ceftriaxone Sodium 0 .STK-MED ONE 09/18 2028 DC .ROUTE Ceftriaxone Sodium 1,000 MG ONCE ONE 09/18 2014 DC 09/18 IV 09/18 Docusate Sodium 100 MG BID 09/19 1000 AC 09/19 PO 1035 Hydrochlorothiazide 12.5 MG DAILY 09/19 1000 AC 09/19 PO 1035 Insulin Aspart 0 TIDAC 09/19 1200 AC SC Insulin Aspart 0 TIDAC 09/19 0800 DC SC Ketorolac 0 .STK-MED ONE 09/18 1909 DC Tromethamine .ROUTE Ketorolac 15 MG ONCE ONE 09/18 1845 DC 09/18 Tromethamine IV 09/18 1846 1858 Losartan Potassium 50 MG DAILY 09/19 1000 AC 09/19 PO 1035 Nadolol 20 MG DAILY 09/19 1000 AC 09/19 PO 1124 Omeprazole 20 MG DAILY 09/19 1000 AC 09/19 PO 1035 Patient Medication 1 ED ONE ONE 09/19 1145 DC Teaching ED 09/19 1146 Polyethylene Glycol 17 GM DAILY 09/19 1000 AC 09/19 PO 1034 Sodium Chloride 1,000 ML BOLUS ONE 09/18 1745 DC 09/18 IV 09/18 1844 1858 Sodium Chloride 1,000 ML BOLUS ONE 09/18 1700 DC 09/18 IV 09/18 1759 1753 Tamsulosin HCl 0.4 MG DAILY 09/19 1000 AC 09/19 PO 1035 Past History Travel History Traveled to [place] past 21 day No Medical History Blood Transfusion Hx: No Neurological: NONE EENT: NONE Cardiovascular: hypertension Respiratory: NONE Gastrointestinal: ventral hernia CIRRHOSIS Hepatic: NONE Renal: NONE Musculoskeletal: NONE Psychiatric: NONE Endocrine: diabetes Blood Disorders: NONE Cancer(s): NONE 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 Exam & Diagnostic Data Vital Signs and I&O Vital Signs Date Time Temp Pulse Resp B/P B/P Pulse O2 O2 Flow FiO2 Mean Ox Delivery Rate 09/19 1124 86 138/72 09/19 1035 86 138/72 09/19 1035 86 138/72 09/19 0821 98.5 09/19 0800 92 Room Air 09/19 0635 101.2 86 20 138/72 92 Room Air 09/19 0559 101.2 09/19 0045 98.0 62 20 128/72 95 Room Air 09/18 2209 98.2 69 20 122/70 94 Room Air 09/18 2114 Room Air 09/18 1959 100.2 77 18 122/59 93 Room Air 09/18 1839 102.7 75 18 131/64 94 Room Air 09/18 1640 95 Room Air 09/18 1635 99.5 79 18 161/77 95 Room Air Intake & Output 09/19 1600 09/19 0400 09/18 1600 09/18 0400 09/17 1600 09/17 0400 Intake Total 1000 Output Total 200 Balance -200 1000 Intake, IV 1000 Output, Urine 200 Patient 195 lb 175 lb Weight Weight Reported by Patient Measurement Method Physical Exam General Appearance: alert, awake, mild distress, moderate distress Head: atraumatic, normal appearance Eyes: Bilateral: normal appearance. Ears, Nose, Throat: hearing grossly normal Neck: normal inspection, supple, full range of motion Respiratory: lungs clear Cardiovascular: regular rate/rhythm, edema, gallop, murmur Gastrointestinal: normal bowel sounds, soft, non-tender, no organomegaly Extremities: normal inspection, no edema Neurologic/Psych: no motor/sensory deficits, awake, mild confusion Skin: diaphoretic, pale Results Pertinent Lab Results: Laboratory Tests 09/19 09/19 0901 0901 Chemistry Total Bilirubin (0.2 - 1.3 mg/dL) Cancelled 2.5 H Direct Bilirubin (< 0.4 mg/dL) Cancelled 1.3 H AST (17 - 59 U/L) Cancelled 117 H ALT (21 - 72 U/L) Cancelled 91 H Alkaline Phosphatase (< 127 U/L) Cancelled 289 H Total Protein (6.3 - 8.2 g/dL) Cancelled 7.2 Albumin (3.5 - 5.0 g/dL) Cancelled 2.8 L Toxicology Acetaminophen (10.0 - 30.0 ug/mL) Cancelled < 10.0 L 09/19 09/18 0705 2009 Chemistry Sodium (137 - 145 mmol/L) 140 Potassium (3.5 - 5.1 mmol/L) 4.2 Chloride (98 - 107 mmol/L) 105 Carbon Dioxide (22 - 30 mmol/L) 21 L Anion Gap (5 - 16) 13 BUN (9 - 20 mg/dL) 24 H Creatinine (0.7 - 1.2 mg/dL) 1.2 Estimated GFR (>60 ml/min) 59 L BUN/Creatinine Ratio (7 - 25 %) 20.0 Total Bilirubin (0.2 - 1.3 mg/dL) 2.6 H Direct Bilirubin (< 0.4 mg/dL) 1.5 H AST (17 - 59 U/L) 118 H ALT (21 - 72 U/L) 93 H Alkaline Phosphatase (< 127 U/L) 292 H Total Protein (6.3 - 8.2 g/dL) 7.3 Albumin (3.5 - 5.0 g/dL) 2.7 L Hematology CBC w Diff MAN DIFF ORDERED WBC (4.8 - 10.8 /CUMM) 7.1 RBC (4.70 - 6.10 /CUMM) 4.74 Hgb (14.0 - 18.0 G/DL) 15.2 Hct (42 - 52 %) 44.4 MCV (80.0 - 94.0 FL) 93.5 MCH (27.0 - 31.0 PG) 32.0 H MCHC (33.0 - 37.0 G/DL) 34.2 RDW (11.5 - 14.5 %) 15.7 H Plt Count (130 - 400 /CUMM) 47 L MPV (7.4 - 10.4 FL) 10.7 H Gran % (42.2 - 75.2 %) 70.4 Lymphocytes % (20.5 - 51.1 %) 18.7 L Monocytes % (1.7 - 9.3 %) 9.3 Eosinophils % (0 - 5 %) 1.2 Basophils % (0.0 - 2.0 %) 0.4 Absolute Granulocytes (1.4 - 6.5 /CUMM) 5.0 Segmented Neutrophils (42.2 - 75.2 %) 68 Band Neutrophils (0.0 - 5.0 %) 12 H Absolute Lymphocytes (1.2 - 3.4 /CUMM) 1.3 Lymphocytes (20.5 - 51.1 %) 14 L Monocytes (1.7 - 9.3 %) 6 Absolute Monocytes (0.10 - 0.60 /CUMM) 0.7 H Absolute Eosinophils (0.0 - 0.7 /CUMM) 0.1 Absolute Basophils (0.0 - 0.2 /CUMM) 0 Anisocytosis 1+ Urines Urine Color (YEL,AMB,STR) ABHINAV Urine Clarity (CLEAR) CLEAR Urine pH (5.0 - 8.0) 5.5 Ur Specific [place] (1.001 - 1.035) 1.015 Urine Protein (NEG,<30 MG/DL) TRACE H Urine Ketones (NEG) NEG Urine Nitrite (NEG) NEG Urine Bilirubin (NEG) NEG@ICTO Urine Urobilinogen (0.1 - 1.0 EU/dl) 0.2 Ur Leukocyte Esterase (NEG) NEG Ur Microscopic SEDIMENT EXAMINED Urine RBC (0 - 5 /HPF) RARE Urine WBC (0 - 2 /HPF) RARE Ur Epithelial Cells (NONE,FEW) RARE Urine Bacteria (NEG/NONE) RARE H Urine Hemoglobin (NEG) NEG Urine Glucose (N MG/DL) NEG 09/18 1801 1705 Chemistry Sodium (137 - 145 mmol/L) 138 Potassium (3.5 - 5.1 mmol/L) 4.4 Chloride (98 - 107 mmol/L) 100 Carbon Dioxide (22 - 30 mmol/L) 26 Anion Gap (5 - 16) 12 BUN (9 - 20 mg/dL) 22 H Creatinine (0.7 - 1.2 mg/dL) 1.2 Estimated GFR (>60 ml/min) 59 L BUN/Creatinine Ratio (7 - 25 %) 18.3 Glucose (65 - 99 mg/dL) 127 H Lactic Acid (0.7 - 2.1 mmol/L) 2.0 2.6 H Calcium (8.4 - 10.2 mg/dL) 9.6 Total Bilirubin (0.2 - 1.3 mg/dL) 2.6 H AST (17 - 59 U/L) 153 H ALT (21 - 72 U/L) 107 H Alkaline Phosphatase (< 127 U/L) 354 H Troponin I (<0.11 ng/ml) < 0.01 Bmh-F-Lohwmjoabrt Pept (<125 pg/mL) 739 H Total Protein (6.3 - 8.2 g/dL) 8.6 H Albumin (3.5 - 5.0 g/dL) 3.4 L Globulin (1.9 - 4.2 gm/dL) 5.2 H Albumin/Globulin Ratio (1.1 - 2.2 %) 0.7 L Coagulation PT (9.4 - 12.5 SEC) 17.9 H INR (0.90 - 1.17) 1.63 H APTT (25 - 37 SEC) 39 H D-Dimer High Sensitivty (0 - 243 ng/ml) 2311 H Hematology WBC (4.8 - 10.8 /CUMM) 6.8 RBC (4.70 - 6.10 /CUMM) 4.86 Hgb (14.0 - 18.0 G/DL) 15.5 Hct (42 - 52 %) 45.6 MCV (80.0 - 94.0 FL) 93.7 MCH (27.0 - 31.0 PG) 31.9 H MCHC (33.0 - 37.0 G/DL) 34.0 RDW (11.5 - 14.5 %) 15.3 H Plt Count (130 - 400 /CUMM) 48 L MPV (7.4 - 10.4 FL) 10.5 H Gran % (42.2 - 75.2 %) 58.9 Lymphocytes % (20.5 - 51.1 %) 28.8 Monocytes % (1.7 - 9.3 %) 10.1 H Eosinophils % (0 - 5 %) 1.8 Basophils % (0.0 - 2.0 %) 0.4 Absolute Granulocytes (1.4 - 6.5 /CUMM) 4.0 Absolute Lymphocytes (1.2 - 3.4 /CUMM) 2.0 Absolute Monocytes (0.10 - 0.60 /CUMM) 0.7 H Absolute Eosinophils (0.0 - 0.7 /CUMM) 0.1 Absolute Basophils (0.0 - 0.2 /CUMM) 0 Toxicology Acetaminophen (10.0 - 30.0 ug/mL) < 10.0 L Assessment/Plan Assessment/Recommendations: ASSESSMENT: 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 Abnormal Findings on Lung CT -- ? Infectious vs Neoplastic. There is central lymphadenopathy. 3. Confusion -- ? related to pneumonia. May have some degree of hepatic encephalopathy exacerbated by comorbid illness 4. Coagulopathy, Thrombocytopenia 5. Abnormal Liver-Associated Enzymes and alk phos -- ? ongoing alcohol use. Have been trending upwards. RECOMMENDATIONS: 1. Continue antibiotics as you have done. 2. Would start lactulose 30 ml BID 3. Consult pulmonary 4. Do not believe patient's primary problems at this time are related to his underlying cirrhosis. Would continue to follow liver-associated enzymes and coags. Consult Acknowledgment - Thank you for your consult request.
[2017-09-19 14:41] VITALS: BP 120/52
[2017-09-19 17:30] VITALS: BP 98/70
[2017-09-19 21:48] VITALS: BP 100/60
[2017-09-20 07:07] VITALS: BP 94/60
--- NOTE | 2017-09-20 07:48 | PN- Housestaff ---
Stewart KENT,Penelope 09/20/17 0747: Subjective Follow-up For: Community-acquired pneumonia Alcoholic liver cirrhosis Subjective: Patient seen and examined at bedside. No overnight events. No complaints. He denies chest pain, dyspnea, nausea, vomiting, abdominal pain. He is alert, awake, oriented x 3 Review of Systems Constitutional: Reports: see HPI. Objective Last 24 Hrs of Vital Signs/I&O Vital Signs Date Time Temp Pulse Resp B/P B/P Pulse O2 O2 Flow FiO2 Mean Ox Delivery Rate 09/20 1416 97.9 64 18 108/58 93 Room Air 09/20 0906 61 118/58 09/20 0905 61 118/58 09/20 0905 61 118/58 09/20 0800 93 Room Air 09/20 0800 97.4 61 18 118/58 93 Room Air 09/20 0707 99.7 48 18 94/60 93 Room Air 09/20 0000 Room Air 09/19 2148 100.1 73 19 100/60 93 Room Air 09/19 2100 100.1 09/19 1940 101.4 09/19 1745 101.4 20 95 09/19 1730 97.8 72 20 98/70 95 Room Air 09/19 1649 97.8 09/19 1600 Room Air Intake & Output 09/20 1600 09/20 0800 09/20 0000 Intake Total 750 Output Total 240 250 Balance 510 -250 Intake, IV 300 Intake, Oral 450 Number 1 1 2 Bowel Movements Output, Urine 240 250 Patient 195 lb Weight Weight Bed scale Measurement Method Physical Exam General Appearance: Alert, Oriented X3, Cooperative Skin: No Breakdown Cardiovascular: Normal S1, Normal S2, No Murmurs Lungs: b/l wheeze Abdomen: Soft, No Tenderness, No Hepatospenomegaly Current Medications: Current Medications Sig/Dimple Start time Last Medication Dose Route Stop Time Status Admin Azithromycin 500 MG Q24H 09/19 2029 AC 09/19 Dextrose/Water 250 ML IV 2034 Ceftriaxone Sodium 1,000 MG Q24H 09/19 2029 AC 09/19 IV 203 Dextrose/Sodium 1,000 ML Q13H 09/20 0930 AC 09/20 Chloride IV 0930 Docusate Sodium 100 MG BID 09/19 1000 AC 09/19 PO 1035 Hydrochlorothiazide 12.5 MG DAILY 09/19 1000 AC 09/20 PO 0907 Ibuprofen 400 MG ONCE ONE 09/19 1845 DC 09/19 PO 09/19 1846 1940 Insulin Aspart 0 TIDAC 09/19 1200 ND 09/19 MI 1736 Insulin Human Regular 0 Q6 09/20 1200 09/20 MI 1157 Lactulose 20 GM BID 09/19 1429 09/19 PO 205 Losartan Potassium 50 MG DAILY 09/19 1000 AC 09/20 PO 0905 Nadolol 20 MG DAILY 09/19 1000 AC 09/20 PO 0905 Omeprazole 20 MG DAILY 09/19 1000 AC 09/20 PO 0907 Patient Medication 1 ED ONE ONE 09/20 1345 ND Teaching ED 09/20 1346 Polyethylene Glycol 17 GM DAILY 09/19 1000 AC 09/19 PO 1034 Tamsulosin HCl 0.4 MG DAILY 09/19 1000 09/20 PO 0906 Last 24 Hrs of Lab/Sonu Results Last 24 Hrs of Labs/Mics: Laboratory Tests 09/20/17 0647: Anion Gap 12, Estimated GFR 42 L, BUN/Creatinine Ratio 25.0, CBC w Diff MAN DIFF ORDERED, RBC 4.75, MCV 95.2 H, MCH 32.1 H, MCHC 33.7, RDW 16.0 H, MPV 10.6 H, Gran % 67.2, Lymphocytes % 23.4, Monocytes % 7.7, Eosinophils % 1.4, Basophils % 0.3, Absolute Granulocytes 4.4, Segmented Neutrophils 56, Band Neutrophils 14 H, Absolute Lymphocytes 1.5, Lymphocytes 20 L, Monocytes 6, Absolute Monocytes 0.5, Eosinophils 4, Absolute Eosinophils 0.1, Absolute Basophils 0, Platelet Estimate DECREASED, Normocytic RBCs VERIFIED, Normochromic RBCs VERIFIED Microbiology 09/20 050 LOWER RESP: Respiratory Culture - CAN Cancelled: NUMBER OF SQUAMOUS CELLS INDICATES POOR QUALITY SPECIMEN 09/20 0500 LOWER RESP: Gram Stain - CAN Cancelled: NUMBER OF SQUAMOUS CELLS INDICATES POOR QUALITY SPECIMEN 09/19 1852 BLOOD: Blood Culture - RES GRAM POSITIVE COCCI 09/19 1849 BLOOD: Blood Culture - RES Assessment/Plan Assessment: Patient is 77-year-old male with past medical history significant for [id number] diabetes, hypertension, cecal polyp status post right colectomy, BPH, alcoholic liver cirrhosis, remote history of alcohol abuse 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 Assessment and plan 1. Community-acquired pneumonia-patient has right upper lobe pneumonia treated with IV ceftriaxone and azithromycin. Will continue TRC nebulization. Continue cough syrup. On CAT scan patient has central lymphadenopathy. Malignancy needs to be ruled out. We will involve pulmonology on board. His pneumonia can be postobstructive too. 2. Hepatic encephalopathy-upon admission patient was confused. This can be secondary due to pneumonia. 3. Patient didn't have a bowel movement. We will add lactulose 30 mL twice a day. 4. There was a question of increased Tylenol use during admission. Tylenol level as been sent. We'll follow with that. 5. Initially the admitting team ordered were not present abdomen and after discussing with Dr. Coronel ultrasound abdomen was deferred because patient had recently ultrasound abdomen done on September 13 which showed small ascitis. Code-full code Diet-diabetic diet Problem List: 1. Pneumonia Pain Ratin Pain Location: none Pain Goal: Remain pain free Pain Plan: tylenol Tomorrow's Labs & Rationales: cbc,bep Josef Morocho 09/20/17 1115: Attending MD Review Statement Attending Statement Attending MD Statement: examined this patient, discuss w/resident/PA/SOLID PLASTERER, agreed w/resident/PA/SOLID PLASTERER, discussed with family, reviewed EMR data (avail), discussed with nursing, discussed with case mgmt, reviewed images, amended to note Attending Assessment/Plan: 77 o/m with pmh of liver cirrhosis admitted with fever and cough with shortness of breath on exertion. CTA reveals Focal airspace disease in the right upper lobe and right base suggestive of edema and infiltrate with lymphadenopathy. C/o diarrhea and no RUQ tenderness with mild elevation of creatinine. Patient admitted with impression of possible community acquired pneumonia started on ceftriaxone and azithromycin. Panculture f/u. IVF, GI consulted which is suggestive of compensated liver disease, F/u RUQ imaging. Pulmonary reviewed images and f/u o/p for repeat imaging to see resolution of infilrtrates. Monitor hemodyamics and labs. gi/dvt prophyalxis
[2017-09-20 08:00] VITALS: BP 118/58
[2017-09-20 08:09] LABS: ABSOLUTE BASOPHIL COUNT 0 /CUMM (0.0-0.2); ABSOLUTE EOSINOPHIL COUNT 0.1 /CUMM (0.0-0.7); ABSOLUTE GRANULOCYTE CT 4.4 /CUMM (1.4-6.5); ABSOLUTE LYMPH COUNT 1.5 /CUMM (1.2-3.4); ABSOLUTE MONOCYTE COUNT 0.5 /CUMM (0.10-0.60); BASOPHIL % 0.3 % (0.0-2.0); EOSINOPHIL % 1.4 % (0-5); GRANULOCYTE % 67.2 % (42.2-75.2); HEMATOCRIT 45.2 % (42-52); MEAN CORPUSCULAR HGB 32.1 PG (27.0-31.0); MEAN CORPUSCULAR HGB CONC 33.7 G/DL (33.0-37.0); MEAN CORPUSCULAR VOLUME 95.2 FL (80.0-94.0); MEAN PLATELET VOLUME 10.6 FL (7.4-10.4); PLATELET COUNT 50 /CUMM (130-400); RED BLOOD CELL CT 4.75 /CUMM (4.70-6.10); WHITE BLOOD CELL COUNT 6.6 /CUMM (4.8-10.8)
[2017-09-20 14:16] VITALS: BP 108/58
--- NOTE | 2017-09-20 14:49 | Patient Discharge Instructions ---
Discharge Instructions General Discharge Information You were seen/treated for: Bronchitis, alcoholic liver disease, altered mental status, chronic diarrhea Watch for these problems: In case of chest pain, cough, chest pressure, nausea, vomiting, generalized weakness, jaundice please go to the nearest emergency room Special Instructions: Please follow-up with your primary care provider within 1-2 weeks of discharge. please follow-up with your environmental health physician within 1-2 weeks of discharge. Please follow-up with air brake rigger for outpatient PET scan within 1-2 weeks of discharge. Diet Continue normal diet: No Recommended Diet: Diabetic Activity Full Activity/No Limits: No Activity Self Limited: Yes Acute Coronary Syndrome Inclusion Criteria At DC or during hospital stay patient has or had the following: ACS DIAGNOSIS No Discharge Core Measures Meds if any: Prescribed or Continued at Discharge Meds if any: NOT Prescribed or Continued at Discharge Congestive Heart Failure Inclusion Criteria At DC or during hospital stay patient has or had the following: CHF DIAGNOSIS No Discharge Core Measures Meds if any: Prescribed or Continued at Discharge Meds if any: NOT Prescribed or Continued at Discharge Cerebrovascular accident Inclusion Criteria At DC or during hospital stay patient has or had the following: CVA/TIA Diagnosis No Discharge Core Measures Meds if any: Prescribed or Continued at Discharge Meds if any: NOT Prescribed or Continued at Discharge Venous thromboembolism Inclusion Criteria VTE Diagnosis No VTE Type NONE VTE Confirmed by (Test) NONE Discharge Core Measures - Per Current guidelines, there needs to be overlap - treatment for the first 5 days of Warfarin therapy. - If discharged on Warfarin prior to 5 days of - overlap therapy, the patient will need to be - assessed for post discharge needs including - *Post discharge parental anticoagulation - *Warfarin and/or parental anticoagulation education - *Follow up date to check INR post discharge At least 5 days overlap therapy as Inpatient No Meds if any: Prescribed or Continued at Discharge Note: Overlap Therapy is Warfarin and Anticoagulant Meds if any: NOT Prescribed or Continued at Discharge
[2017-09-20] MEDS ORDERED: KEFLEX500 M1 PO (15:46)
--- NOTE | 2017-09-20 16:34 | PN- Gastroenterology ---
Assessment/Plan GI Assessment/Recommendations: 77 y/o male, HTN, DM, EtOH cirrhosis, thrombocytopenia, post ventral hernia repair, BPH, B/L TKR, YANG-> CPAP, ex-smoker, post right hemicolectomy, AP, & 4 cm of TI 03/16/11: benign cecal TA. 07/31/17: EGD/colonoscopy to zoe-TI, per Dr. 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 *The patient was then put on Nadolol 20 g daily for variceal prophylaxis & Omeprazole 20 mg daily. The patient reportedly has chronic diarrhea, which may be from his right hemicolectomy, with interruption of the enterohepatic reuptake of bile salts. He had been on Clindamycin in 03/2017. He reportedly stopped EtOH in 03/2017. The patient was admitted to 09/18/17, with 5 days of generalized weakness, lethargy, & fevers, with cough productive of whitish sputum. On admission, he had low-grade fever (T- 100), f/b T 102.7, with O2 sat RA 94%. Please note, 09/13/17: Complete abdominal sono (per Dr. Boone [employer])- small volume ascites ( probably too small to tap), diffuse wall thickening of the gallbladder probably secondary to ascites, multiple gallstones, enlarged spleen with multiple small echogenic mass is of uncertain etiology, possible hemangiomas. 09/17/17: CXR per PMD- NAD. Imaging studies on 09/18/17: admission were suggestive of a community-acquired pneumonia & bronchitis. *09/18/17: CXR- Thickening of the central bronchial interstitium which could be due to airways inflammation from viral/atypical infection. Pulmonary interstitial edema and venous congestion also possible.09/18/17:*CTA chest- no evidence of PE, with chronic precarinal and subcarinal adenopathy, persistent nodularity in the RUL & patchy areas of opacification in right upper lung zone laterally in the right base. No significant infiltrate or effusion in left lung. Mild ascites & probable splenomegaly. 09/18/17: EKG: NSR with no acute ST-T wave changes. *The patient was empirically put on Ceftriaxone & Azithromycin. He was felt not to have any tappable ascites. He was seen in covering GI consultation by Dr. Phan 09/19/17. Lactulose was added in addition to antibiotics. Pulmonary consultation was advised. The patient's primary problem was felt to be due to his probable pneumonia, rather than PSE/cirrhosis. (*The patient's GI care was assumed by myself 09/20/17. Please refer to Dr. Phan's covering GI consultation of 09/19/17. The patient is normally followed for GI by Dr. Boone. *Extensive records reviewed). 04/24/17: *ROSE + > 1:2560 homogeneous, per Dr. Curtis. 06/04/17: nl A1AT 182 (83-199), elevated 5'NTD 42 (0-10), + anti-smooth muscle Ab 25, AMA < 20, Fe 125, TIBC 288, Fe sat 43.4%, ferritin 220. 08/21/17: nl AFP 2.3 *Multiple cultures negative to date, including UC, Strep Pneumo urinary Ag, & Legionella urinary Ag, except for 09/19/17: 1 of 2 BC: GPC in clusters, probable contaminant. 09/19/17: stool C.difficile- neg. 09/18/17: WBC 6.8, H/H 15.5/45.6, MCV 93.7, RDW 15.3, PLT 48, *elevated d-dimer 2311, PT 17.9, INR 1.63, PTT 39, glucose 127, BUN/Cr 22/1.2, GFR 59, Na 138. K 4.4, HCO3 26, AG 12, *lactate 2.6, Ca 9.6, albumin 3.4, globulin 5.2, TBil 2.6, alk phos 354, AST 153, ALT 107, [Tylenol] < 10, troponin < 0.01, elevated BNP 739. 09/19/17: WBC 7.1, H/H 14.2/44.4, MCV 93.5, RDW 15.7, PLT 47, BUN/Cr 24/1.2, GFR 59, Na 140, K 4.2, HCO3 21, AG 14, albumin 2.7, TBil 2.6/DBil 1.5, alk phos 292, AST 118, ALT 93 09/20/17: WBC 6.6 (56S/14B/20L/6M/4E), H/H 15.3/45.2, MCV 95.2, RDW 16, PLT 50, BUN/Cr 40/1.6, *GFR 42, Na 142, K 4.4, HCO3 22, AG 12. *As of 09/20/17, the patient was hemodynamically stable with O2 sat RA 93%, T 97.9 with Tm 101.4. He had a mild cough productive of whitish sputum. He denied any symptoms of UTI. He admitted to intermittent low-grade fevers, without any chills. He denied any chest pain or shortness of breath. He had no pleuritic pain or hemoptysis. His mentation has improved. He was A & Ox3. He denied any abdominal pain. He denied any pruritus, dark urine, or light stools. *His decreased GFR was noted. There was no overt GI bleeding, melena, or hematemesis. He denied any confusion, increased abdominal girth, or peripheral edema. *The patient had received 2 doses of Ibuprofen. *Additionally, he may have been getting dehydrated from his Lactulose. *Both of these may have contributed to his drop in GFR, along with the IV contrast received at the 09/18/17: CTA chest. *HRS less likely, but possible. *The patient was also on HCTZ 12.5 mg daily & Losartan. *I agree that his major issue was PNA, superimposed on cirrhosis. He claimed he last drank EtOH in 03/2017. *SUGGEST: Gentle IVF. *No NSAIDs! *Consider trial of IV Mucomyst, post IV contrast. *Stop Lactulose. *Instead, give Rifaximin 550 mg po BID for possible PSE. *Hold HCTZ. Carefully continue Losartan for now. May continue Nadolol 20 mg daily for variceal prophylaxis. *Hold Omeprazole 20 mg daily for now (PPI can cause allergic interstitial nephritis). *Start empiric SPA 25g IV Q8h. *Close follow- up of CBC, BUN/Cr, GFR, lytes, LFTs, INR. Follow-up cultures. *Continue Azithromycin & Ceftriaxone. TRC. *Consider pulmonary input. *Consider repeat complete abdominal sono to see if there is tappable ascites to rule out SBP (but most likely, fevers were pulmonary in etiology) & to rule out hydronephrosis. Once imaging studies are done, 2g Na+ DM diet. *Check Henrry & FENa. *Consider renal input if GFR continues to fall. DVT prophylaxis. Mobilize patient with assistance. *Consideration for outpt PET/CT, regarding nonspecific mediastinal nodes & splenic lesions (d/w pt). *Consideration for outpt liver bx as platelet count allows (50K), regarding +ROSE > 1:2560 (rule out superimposed AIH; d/w pt-> *severe fibrosis on 06/04/17: Fibrotest, with fibrosis score 0.94, per Dr. Boone.). *Consider checking full Hep A, B, & C serologies. The above was discussed with the medical house staff. *The pt was told to follow-up with Dr. Curtis for primary care & his usual GI MD, Dr. Boone, after D/C. Problem List: 1. Liver cirrhosis 2. Change in mental status 3. Pneumonia 4. Renal insufficiency 5. Malnutrition 6. Thrombocytopenia 7. Coagulopathy 8. Elevated LFTs 9. Ascites 10. History of colon polyps 11. Esophageal varices Subjective Subjective: (*The patient's GI care was assumed by myself 09/20/17. Please refer to Dr. Phan's covering GI consultation of 09/19/17. The patient is normally followed for GI by Dr. Boone. *Extensive records reviewed). 04/24/17: *ROSE + > 1:2560 homogeneous, per Dr. Curtis. 06/04/17: nl A1AT 182 (83-199), elevated 5'NTD 42 (0-10), + anti-smooth muscle Ab 25, AMA < 20, Fe 125, TIBC 288, Fe sat 43.4%, ferritin 220. 08/21/17: nl AFP 2.3 *Multiple cultures negative to date, including UC, Strep Pneumo urinary Ag, & Legionella urinary Ag, except for 09/19/17: 1 of 2 BC: GPC in clusters, probable contaminant. 09/19/17: stool C.difficile- neg. 09/18/17: WBC 6.8, H/H 15.5/45.6, MCV 93.7, RDW 15.3, PLT 48, *elevated d-dimer 2311, PT 17.9, INR 1.63, PTT 39, glucose 127, BUN/Cr 22/1.2, GFR 59, Na 138. K 4.4, HCO3 26, AG 12, *lactate 2.6, Ca 9.6, albumin 3.4, globulin 5.2, TBil 2.6, alk phos 354, AST 153, ALT 107, [Tylenol] < 10, troponin < 0.01, elevated BNP 739. 09/19/17: WBC 7.1, H/H 14.2/44.4, MCV 93.5, RDW 15.7, PLT 47, BUN/Cr 24/1.2, GFR 59, Na 140, K 4.2, HCO3 21, AG 14, albumin 2.7, TBil 2.6/DBil 1.5, alk phos 292, AST 118, ALT 93 09/20/17: WBC 6.6 (56S/14B/20L/6M/4E), H/H 15.3/45.2, MCV 95.2, RDW 16, PLT 50, BUN/Cr 40/1.6, *GFR 42, Na 142, K 4.4, HCO3 22, AG 12. *As of 09/20/17, the patient was hemodynamically stable with O2 sat RA 93%, T 97.9 with Tm 101.4. He had a mild cough productive of whitish sputum. He denied any symptoms of UTI. He admitted to intermittent low-grade fevers, without any chills. He denied any chest pain or shortness of breath. He had no pleuritic pain or hemoptysis. His mentation has improved. He was A & Ox3. He denied any abdominal pain. He denied any pruritus, dark urine, or light stools. *His decreased GFR was noted. There was no overt GI bleeding, melena, or hematemesis. He denied any confusion, increased abdominal girth, or peripheral edema. Review of Systems: Full 14 point ROS otherwise noncontributory, and as above. Constitutional: Reports: fever; weakness- improving. EENTM: Reports: no symptoms. Cardiovascular: Reports: no symptoms. Respiratory: Reports: mild cough. GI: Reports: diarrhea. Genitourinary: Reports: no symptoms. Musculoskeletal: Reports: no symptoms. Skin: Reports: no symptoms. Neurological/Psychological: Reports: no symptoms; no longer confused. Hematologic/Endocrine: Reports: no symptoms. Objective Vital Signs and I&Os Vital Signs Date Time Temp Pulse Resp B/P B/P Pulse O2 O2 Flow FiO2 Mean Ox Delivery Rate 09/20 1416 97.9 64 18 108/58 93 Room Air 09/20 0906 61 118/58 09/20 0905 61 118/58 09/20 0905 61 118/58 09/20 0800 93 Room Air 09/20 0800 97.4 61 18 118/58 93 Room Air 09/20 0707 99.7 48 18 94/60 93 Room Air 09/20 0000 Room Air 09/19 2148 100.1 73 19 100/60 93 Room Air 09/19 2100 100.1 09/19 1940 101.4 09/19 1745 101.4 20 95 09/19 1730 97.8 72 20 98/70 95 Room Air 09/19 1649 97.8 09/19 1600 Room Air Intake & Output 09/20 1600 09/20 0400 09/19 1600 09/19 0400 09/18 1600 09/18 0400 Intake Total 325 753 3212 Output Total 490 1000 Balance 260 -500 1000 Intake, IV 300 1000 Intake, Oral 450 500 Number 2 2 2 Bowel Movements Output, 500 Gastric Drainage Output, Urine 490 500 Patient 195 lb 195 lb 175 lb Weight Weight Bed scale Reported by Patient Measurement Method Physical Exam: Well-developed, slightly malnourished obese male, in no apparent distress. Sclera minimally icteric. Conjunctiva pink. Oropharynx clear. No oral thrush. No aphthous ulcers. Slightly dry mucus membranes. There is no adenopathy, thyromegaly, or JVD. No peripheral stigmata of inflammatory bowel disease on exam. Few+ spiders on the anterior chest wall. No gynecomastia. No CVA tenderness. No spine tenderness. Lungs: clear to A&P, except for a few rhonchi at the left base & egophony at RUL posteriorly. No wheezing or rales. Heart exam: regular rate rhythm, S1 and S2, without significant murmur. Abdominal exam: normal bowel sounds, soft. obese belly, nontender without guarding or rebound. No definite mass, except for perhaps a tiny reducible umbilical hernia. Liver approximately 14 cm by percussion. Negative Rodriguez sign. Borderline palpable spleen tip. No definite fluid shift. No pulsatile mass. No epigastric bruit. Digital rectal exam: deferred at present. Extremities: without C, C, or E. B/L TKR. Moderate DJD. No palpable cords. No palmar erythema. No Dupuytren's contractures. Distal pulses 2+ bilaterally. DTRs 2+ bilaterally. Currently, alert and oriented x 3. Brief neurologic exam: nonfocal , although a detailed exam for peripheral neuropathy was deferred. Motor: 5/5 B/ L. No tremor. No asterixis. Current Medications: Current Medications Sig/Dimple Start time Last Medication Dose Route Stop Time Status Admin Albumin Human 25 GM Q8 09/20 1717 UNVr IV Azithromycin 500 MG Q24H 09/19 2030 AC 09/19 Dextrose/Water 250 ML IV 2035 Ceftriaxone Sodium 1,000 MG Q24H 09/19 2030 AC 09/19 IV 2035 Dextrose/Sodium 1,000 ML Q13H 09/20 0930 AC 09/20 Chloride IV 0930 Docusate Sodium 100 MG BID 09/19 1000 AC 09/19 PO 1035 Hydrochlorothiazide 12.5 MG DAILY 09/19 1000 DC 09/20 PO 0907 Ibuprofen 400 MG ONCE ONE 09/19 1845 DC 09/19 PO 09/19 1846 1940 Insulin Aspart 0 TIDAC 09/19 1200 DC 09/19 SC 1736 Insulin Human Regular 0 Q6 09/20 1200 AC 09/20 SC 1157 Lactulose 20 GM BID 09/19 1429 DC 09/19 PO 2053 Losartan Potassium 50 MG DAILY 09/19 1000 AC 09/20 PO 0905 Nadolol 20 MG DAILY 09/19 1000 AC 09/20 PO 0905 Omeprazole 20 MG DAILY 09/19 1000 DC 09/20 PO 0907 Patient Medication 1 ED ONE ONE 09/20 1345 DC Teaching ED 09/20 1346 Polyethylene Glycol 17 GM DAILY 09/19 1000 AC 09/19 PO 1034 Rifaximin 550 MG BID 09/20 2200 UNVr PO Tamsulosin HCl 0.4 MG DAILY 09/19 1000 AC 09/20 PO 0906 Results Pertinent Lab Results: Laboratory Tests 09/20 09/19 0647 0901 Chemistry Sodium (137 - 145 mmol/L) 142 Potassium (3.5 - 5.1 mmol/L) 4.4 Chloride (98 - 107 mmol/L) 108 H Carbon Dioxide (22 - 30 mmol/L) 22 Anion Gap (5 - 16) 12 BUN (9 - 20 mg/dL) 40 H Creatinine (0.7 - 1.2 mg/dL) 1.6 H Estimated GFR (>60 ml/min) 42 L BUN/Creatinine Ratio (7 - 25 %) 25.0 Total Bilirubin Cancelled Direct Bilirubin Cancelled AST Cancelled ALT Cancelled Alkaline Phosphatase Cancelled Total Protein Cancelled Albumin Cancelled Hematology CBC w Diff MAN DIFF ORDERED WBC (4.8 - 10.8 /CUMM) 6.6 RBC (4.70 - 6.10 /CUMM) 4.75 Hgb (14.0 - 18.0 G/DL) 15.3 Hct (42 - 52 %) 45.2 MCV (80.0 - 94.0 FL) 95.2 H MCH (27.0 - 31.0 PG) 32.1 H MCHC (33.0 - 37.0 G/DL) 33.7 RDW (11.5 - 14.5 %) 16.0 H Plt Count (130 - 400 /CUMM) 50 L MPV (7.4 - 10.4 FL) 10.6 H Gran % (42.2 - 75.2 %) 67.2 Lymphocytes % (20.5 - 51.1 %) 23.4 Monocytes % (1.7 - 9.3 %) 7.7 Eosinophils % (0 - 5 %) 1.4 Basophils % (0.0 - 2.0 %) 0.3 Absolute Granulocytes (1.4 - 6.5 /CUMM) 4.4 Segmented Neutrophils (42.2 - 75.2 %) 56 Band Neutrophils (0.0 - 5.0 %) 14 H Absolute Lymphocytes (1.2 - 3.4 /CUMM) 1.5 Lymphocytes (20.5 - 51.1 %) 20 L Monocytes (1.7 - 9.3 %) 6 Absolute Monocytes (0.10 - 0.60 /CUMM) 0.5 Eosinophils (0 - 5.0 %) 4 Absolute Eosinophils (0.0 - 0.7 /CUMM) 0.1 Absolute Basophils (0.0 - 0.2 /CUMM) 0 Platelet Estimate (ADEQUATE) DECREASED Normocytic RBCs VERIFIED Normochromic RBCs VERIFIED Toxicology Acetaminophen Cancelled 09/19 09/19 0901 0705 Chemistry Sodium (137 - 145 mmol/L) 140 Potassium (3.5 - 5.1 mmol/L) 4.2 Chloride (98 - 107 mmol/L) 105 Carbon Dioxide (22 - 30 mmol/L) 21 L Anion Gap (5 - 16) 13 BUN (9 - 20 mg/dL) 24 H Creatinine (0.7 - 1.2 mg/dL) 1.2 Estimated GFR (>60 ml/min) 59 L BUN/Creatinine Ratio (7 - 25 %) 20.0 Total Bilirubin (0.2 - 1.3 mg/dL) 2.5 H 2.6 H Direct Bilirubin (< 0.4 mg/dL) 1.3 H 1.5 H AST (17 - 59 U/L) 117 H 118 H ALT (21 - 72 U/L) 91 H 93 H Alkaline Phosphatase (< 127 U/L) 289 H 292 H Total Protein (6.3 - 8.2 g/dL) 7.2 7.3 Albumin (3.5 - 5.0 g/dL) 2.8 L 2.7 L Hematology CBC w Diff MAN DIFF ORDERED WBC (4.8 - 10.8 /CUMM) 7.1 RBC (4.70 - 6.10 /CUMM) 4.74 Hgb (14.0 - 18.0 G/DL) 15.2 Hct (42 - 52 %) 44.4 MCV (80.0 - 94.0 FL) 93.5 MCH (27.0 - 31.0 PG) 32.0 H MCHC (33.0 - 37.0 G/DL) 34.2 RDW (11.5 - 14.5 %) 15.7 H Plt Count (130 - 400 /CUMM) 47 L MPV (7.4 - 10.4 FL) 10.7 H Gran % (42.2 - 75.2 %) 70.4 Lymphocytes % (20.5 - 51.1 %) 18.7 L Monocytes % (1.7 - 9.3 %) 9.3 Eosinophils % (0 - 5 %) 1.2 Basophils % (0.0 - 2.0 %) 0.4 Absolute Granulocytes (1.4 - 6.5 /CUMM) 5.0 Segmented Neutrophils (42.2 - 75.2 %) 68 Band Neutrophils (0.0 - 5.0 %) 12 H Absolute Lymphocytes (1.2 - 3.4 /CUMM) 1.3 Lymphocytes (20.5 - 51.1 %) 14 L Monocytes (1.7 - 9.3 %) 6 Absolute Monocytes (0.10 - 0.60 /CUMM) 0.7 H Absolute Eosinophils (0.0 - 0.7 /CUMM) 0.1 Absolute Basophils (0.0 - 0.2 /CUMM) 0 Anisocytosis 1+ Toxicology Acetaminophen (10.0 - 30.0 ug/mL) < 10.0 L 09/18 1801 Chemistry Lactic Acid (0.7 - 2.1 mmol/L) 2.0 Coagulation PT (9.4 - 12.5 SEC) 17.9 H INR (0.90 - 1.17) 1.63 H APTT (25 - 37 SEC) 39 H D-Dimer High Sensitivty (0 - 243 ng/ml) 2311 H Urines Urine Color (YEL,AMB,STR) ABHINAV Urine Clarity (CLEAR) CLEAR Urine pH (5.0 - 8.0) 5.5 Ur Specific [place] (1.001 - 1.035) 1.015 Urine Protein (NEG,<30 MG/DL) TRACE H Urine Ketones (NEG) NEG Urine Nitrite (NEG) NEG Urine Bilirubin (NEG) NEG@ICTO Urine Urobilinogen (0.1 - 1.0 EU/dl) 0.2 Ur Leukocyte Esterase (NEG) NEG Ur Microscopic SEDIMENT EXAMINED Urine RBC (0 - 5 /HPF) RARE Urine WBC (0 - 2 /HPF) RARE Ur Epithelial Cells (NONE,FEW) RARE Urine Bacteria (NEG/NONE) RARE H Urine Hemoglobin (NEG) NEG Urine Glucose (N MG/DL) NEG 09/18 1705 Chemistry Sodium (137 - 145 mmol/L) 138 Potassium (3.5 - 5.1 mmol/L) 4.4 Chloride (98 - 107 mmol/L) 100 Carbon Dioxide (22 - 30 mmol/L) 26 Anion Gap (5 - 16) 12 BUN (9 - 20 mg/dL) 22 H Creatinine (0.7 - 1.2 mg/dL) 1.2 Estimated GFR (>60 ml/min) 59 L BUN/Creatinine Ratio (7 - 25 %) 18.3 Glucose (65 - 99 mg/dL) 127 H Lactic Acid (0.7 - 2.1 mmol/L) 2.6 H Calcium (8.4 - 10.2 mg/dL) 9.6 Total Bilirubin (0.2 - 1.3 mg/dL) 2.6 H AST (17 - 59 U/L) 153 H ALT (21 - 72 U/L) 107 H Alkaline Phosphatase (< 127 U/L) 354 H Troponin I (<0.11 ng/ml) < 0.01 Hlh-H-Ibmejfqghmv Pept (<125 pg/mL) 739 H Total Protein (6.3 - 8.2 g/dL) 8.6 H Albumin (3.5 - 5.0 g/dL) 3.4 L Globulin (1.9 - 4.2 gm/dL) 5.2 H Albumin/Globulin Ratio (1.1 - 2.2 %) 0.7 L Hematology WBC (4.8 - 10.8 /CUMM) 6.8 RBC (4.70 - 6.10 /CUMM) 4.86 Hgb (14.0 - 18.0 G/DL) 15.5 Hct (42 - 52 %) 45.6 MCV (80.0 - 94.0 FL) 93.7 MCH (27.0 - 31.0 PG) 31.9 H MCHC (33.0 - 37.0 G/DL) 34.0 RDW (11.5 - 14.5 %) 15.3 H Plt Count (130 - 400 /CUMM) 48 L MPV (7.4 - 10.4 FL) 10.5 H Gran % (42.2 - 75.2 %) 58.9 Lymphocytes % (20.5 - 51.1 %) 28.8 Monocytes % (1.7 - 9.3 %) 10.1 H Eosinophils % (0 - 5 %) 1.8 Basophils % (0.0 - 2.0 %) 0.4 Absolute Granulocytes (1.4 - 6.5 /CUMM) 4.0 Absolute Lymphocytes (1.2 - 3.4 /CUMM) 2.0 Absolute Monocytes (0.10 - 0.60 /CUMM) 0.7 H Absolute Eosinophils (0.0 - 0.7 /CUMM) 0.1 Absolute Basophils (0.0 - 0.2 /CUMM) 0 Toxicology Acetaminophen (10.0 - 30.0 ug/mL) < 10.0 L Imaging/Other Studies: 09/13/17: Complete abdominal sono (per Dr. Boone [employer])- small volume ascites ( probably too small to tap), diffuse wall thickening of the gallbladder probably secondary to ascites, multiple gallstones, enlarged spleen with multiple small echogenic mass is of uncertain etiology, possible hemangiomas. 09/17/17: CXR per PMD- NAD. 09/18/17: *Admission CXR- Thickening of the central bronchial interstitium which could be due to airways inflammation from viral/atypical infection. Pulmonary interstitial edema and venous congestion also possible. 09/18/17:*CTA chest- no evidence of PE, with chronic precarinal and subcarinal adenopathy, persistent nodularity in the RUL & patchy areas of opacification in right upper lung zone laterally in the right base. No significant infiltrate or effusion in left lung. Mild ascites & probable splenomegaly. 09/18/17: EKG: NSR with no acute ST-T wave changes.
--- NOTE | 2017-09-20 18:41 | ULTRASOUND REPORT ---
EXAMINATION: US ABDOMEN LIMITED CLINICAL INFORMATION: 77-year-old male with history of cirrhosis. Presents with fever.. COMPARISON: Abdominal ultrasound done on 09/13/2017. TECHNIQUE: Real-time imaging of the right upper quadrant abdominal viscera. FINDINGS: PANCREAS: The visualized part of the body of the pancreas and the head appear unremarkable. LIVER: The liver shows diffuse heterogeneous echotexture consistent with clinically known cirrhosis. No superimposed discrete focal abnormality identified. GALLBLADDER: The gallbladder wall shows circumferential diffuse thickening presence of cholesterol crystal and multiple calculi, similar to prior study. Given the presence of ascites, wall thickening is likely related to surrounding fluid. No Rodriguez's sign noted. COMMON BILE DUCT: Normal in caliber measuring 0.4 cm in diameter. RIGHT KIDNEY: Normal. No hydronephrosis. No renal calculi or focal parenchymal lesions. The kidney measures 11.9 cm in maximum dimension. FREE FLUID: Small amount of free fluid is noted at right upper quadrant around the liver. IMPRESSION: No significant change since prior study dated 09/13/2017.
--- NOTE | 2017-09-20 18:42 | CT SCAN REPORT ---
EXAMINATION: CT ABDOMEN AND PELVIS WITH ORAL CONTRAST ONLY. CLINICAL INFORMATION: Left lower quadrant abdominal pain. Fever. History of cirrhosis. COMPARISON: Abdominal ultrasound done today and on 09/13/2017. TECHNIQUE: Multidetector volumetric imaging was performed from the superior aspect of the liver through the pubic symphysis following administration of oral contrast only. Sagittal and coronal reformatted images were obtained on the technologist's workstation. DLP: 613.73 mGy-cm FINDINGS: LUNG BASES: Subpleural opacities are noted bilaterally, most consistent with hypoventilatory, atelectatic changes. Atherosclerotic disease including coronary arterial calcification is noted. Mild enlargement of the both the ventricles as well as the left atrium is seen. Diaphragmatic calcification is noted. LIVER, GALLBLADDER, AND BILIARY TREE: No discrete intrahepatic focal abnormal identified on these nonenhanced study. The gallbladder is collapsed. There are gallstones identified. PANCREAS: Unremarkable on this nonenhanced study. SPLEEN: Enlarged, measures 17 cm at its maximum dimension. ADRENAL GLANDS: Unremarkable. KIDNEYS AND URETERS: The kidneys are normal in size, shape, and attenuation. No hydronephrosis, hydroureter, or calculi seen. No perinephric stranding. Incidental note is made of a 2.7 cm partially exophytic left mid anterior cortical renal cyst. BLADDER: The urinary bladder is suboptimally distended, grossly appear unremarkable. GASTROINTESTINAL TRACT: The small, and the large bowel loops are decompressed. There is no CT features of acute diverticulitis present. The appendix is not visualized. ABDOMINAL WALL: No significant hernia is appreciated. LYMPH NODES: No pathologically enlarged retroperitoneal, mesenteric lymphadenopathy present. No pathologically enlarged pelvic and/or inguinal, groin lymphadenopathy seen. VASCULAR: Diffuse atherosclerotic disease is noted within the aorta and is branches without aneurysm formation. PELVIC VISCERA: The prostate is mildly enlarged, measures 4.7 x 5.6 cm at its maximum anteroposterior by transverse dimension. OTHER FINDINGS: Small volume ascites is noted predominantly localized around the liver and extending along the right paracolic gutter to the pelvis. OSSEOUS STRUCTURES: Moderate diffuse osteopenia and multilevel degenerative spondylosis related changes are noted in the spine. No suspicious lytic or sclerotic abnormalities. IMPRESSION: 1. Small volume ascites is noted. 2. Moderate splenomegaly. 3. Mildly enlarged prostate. 4. No CT evidence of any acute intra-abdominal and/or intrapelvic pathology. Specifically, no CT evidence of acute diverticulitis.
[2017-09-20 23:06] VITALS: BP 127/69
[2017-09-21 07:30] VITALS: BP 131/70
--- NOTE | 2017-09-21 08:29 | PN- Housestaff ---
Germán Vaughn 09/21/17 0829: Subjective Follow-up For: Community-acquired pneumonia Alcoholic liver cirrhosis AMS-resolved Thrombocytopenia - stable Subjective: Patient reports large amount of loose watery stools this morning. He also reports yellowish sputum production. He denies abdominal pain, SOB, CP, nausea, vomiting Review of Systems Constitutional: Reports: see HPI. Objective Last 24 Hrs of Vital Signs/I&O Vital Signs Date Time Temp Pulse Resp B/P B/P Pulse O2 O2 Flow FiO2 Mean Ox Delivery Rate 09/21 0730 98.0 65 18 131/70 94 Room Air 09/21 0000 Room Air 09/20 2306 98.5 60 18 127/69 93 Room Air 09/20 1620 Room Air 09/20 1416 97.9 64 18 108/58 93 Room Air Intake & Output 09/21 1600 09/21 0800 09/21 0000 Intake Total 800 1750 Output Total 900 1200 Balance -100 550 Intake, IV 600 1150 Intake, Oral 200 600 Number 1 3 Bowel Movements Output, Urine 900 1200 Patient 192 lb Weight Weight Bed scale Measurement Method Physical Exam General Appearance: Alert, Oriented X3, Cooperative, No Acute Distress Cardiovascular: Regular Rate, Normal S1, Normal S2 Lungs: Clear to Auscultation, Normal Air Movement Abdomen: Normal Bowel Sounds, Soft, No Tenderness Current Medications: Current Medications Sig/Dimple Start time Last Medication Dose Route Stop Time Status Admin Acetylcysteine 8,845.1 MG ONCE ONE 09/21 0009 AC 09/21 Dextrose/Water 1,000 ML IV 09/21 1651 0802 Acetylcysteine 4,422.55 MG ONCE ONE 09/20 2100 DC 09/21 Dextrose/Water 500 ML IV 09/21 0110 0137 Acetylcysteine 13,267.65 MG ONCE ONE 09/20 1915 DC 09/20 Dextrose/Water 200 ML IV 09/20 203 2042 Albumin Human 25 GM Q8 09/20 1717 AC 09/21 IV 0551 Azithromycin 500 MG Q24H 09/19 2030 AC 09/20 Dextrose/Water 250 ML IV 2218 Ceftriaxone Sodium 1,000 MG Q24H 09/19 2030 AC 09/20 IV 2041 Dextrose/Sodium 1,000 ML Q13H 09/20 0930 09/20 Chloride IV 0930 Docusate Sodium 100 MG BID 09/19 1000 AC 09/20 PO 2218 Hydrochlorothiazide 12.5 MG DAILY 09/19 1000 DC 09/20 PO 0907 Insulin Aspart 0 TIDAC 09/21 0800 AC SC Insulin Aspart 0 TIDAC 09/19 1200 DC 09/19 SC 1736 Insulin Human Regular 0 Q6 09/20 1200 DC 09/20 SC 1836 Lactulose 20 GM BID 09/19 1429 DC 09/19 PO 2053 Losartan Potassium 50 MG DAILY 09/19 1000 AC 09/20 PO 0905 Nadolol 20 MG DAILY 09/19 1000 AC 09/20 PO 0905 Omeprazole 20 MG DAILY 09/19 1000 DC 09/20 PO 0907 Patient Medication 1 ED ONE ONE 09/20 1345 DC Teaching ED 09/20 1346 Polyethylene Glycol 17 GM DAILY 09/19 1000 AC 09/19 PO 1034 Rifaximin 550 MG BID 09/20 2200 AC 09/20 PO 2218 Tamsulosin HCl 0.4 MG DAILY 09/19 1000 AC 09/20 PO 0906 Last 24 Hrs of Lab/Sonu Results Last 24 Hrs of Labs/Mics: Laboratory Tests 09/20/171837: Urine Color YEL, Urine Clarity CLEAR, Urine pH 6.0, Ur Specific White Owl 1.020, Urine Protein NEG, Urine Ketones NEG, Urine Nitrite NEG, Urine Bilirubin NEG, Urine Urobilinogen 0.2, Ur Leukocyte Esterase NEG, Ur Microscopic SEDIMENT EXAMINED, Urine RBC RARE, Urine WBC RARE, Ur Epithelial Cells RARE, Urine Mucus RARE, Urine Hemoglobin TRACE-INTACT H, Urine Glucose NEG 09/20/171837: Ur Random Creatinine 74.9, Ur Random Sodium 76, Ur Random Potassium 24.3, Fraction Sodium Excret 1.1 H Assessment/Plan Assessment: Community-acquired pneumonia Alcoholic liver cirrhosis AMS-resolved Thrombocytopenia - stable Plan: Continue Acetylcysteine, albumin, Rifaximin Continue IV ceftriaxone and azithromycin RUQ US for abdominal tenderness showed no significant change since prior study dated 09/13/2017 CT abd/pel showed Small volume ascites is noted. Moderate splenomegaly. Mildly enlarged prostate. No CT evidence of any acute intra-abdominal and/or intrapelvic pathology. Specifically, no CT evidence of acute diverticulitis. Follow final blood cultures for Staph coag neg Culture stools if diarrhea continues PT evaluation GI recommendations appreciated Code-full code Diet-diabetic diet Problem List: 1. Thrombocytopenia Pain Ratin Pain Location: NA Pain Goal: Remain pain free Pain Plan: NA Tomorrow's Labs & Rationales: BEP for renal CBC for plt Nae Kothari MD 09/21/17 1424: Attending MD Review Statement Attending Statement Attending MD Statement: examined this patient, discuss w/resident/PA/ESTHETICIAN SPA, agreed w/resident/PA/ESTHETICIAN SPA, discussed with family, reviewed EMR data (avail), discussed with nursing, discussed with case mgmt, reviewed images, amended to note Attending Assessment/Plan: Patient seen and examined, Feels ok. Denies any SOB. feels overall weak. Vital Signs Date Time Temp Pulse Resp B/P B/P Pulse O2 O2 Flow FiO2 Mean Ox Delivery Rate 09/21 0918 68 128/78 09/21 0730 98.0 65 18 131/70 94 Room Air 09/21 0000 Room Air 09/20 2306 98.5 60 18 127/69 93 Room Air 09/20 1620 Room Air on exam; aox3, nad. cv; s1,s2, rrr resp; clear abd; soft, nt, bs+ ext; no edema Laboratory Tests 09/21 09/20 1039 1838 Chemistry Sodium (137 - 145 mmol/L) 141 Potassium (3.5 - 5.1 mmol/L) 3.8 Chloride (98 - 107 mmol/L) 106 Carbon Dioxide (22 - 30 mmol/L) 22 Anion Gap (5 - 16) 13 BUN (9 - 20 mg/dL) 31 H Creatinine (0.7 - 1.2 mg/dL) 1.3 H Estimated GFR (>60 ml/min) 54 L BUN/Creatinine Ratio (7 - 25 %) 23.8 Coagulation PT (9.4 - 12.5 SEC) 19.7 H INR (0.90 - 1.17) 1.80 H Hematology CBC w Diff NO MAN DIFF REQ WBC (4.8 - 10.8 /CUMM) 6.9 RBC (4.70 - 6.10 /CUMM) 4.70 Hgb (14.0 - 18.0 G/DL) 14.9 Hct (42 - 52 %) 44.3 MCV (80.0 - 94.0 FL) 94.2 H MCH (27.0 - 31.0 PG) 31.6 H MCHC (33.0 - 37.0 G/DL) 33.6 RDW (11.5 - 14.5 %) 16.2 H Plt Count (130 - 400 /CUMM) 65 L MPV (7.4 - 10.4 FL) 10.9 H Gran % (42.2 - 75.2 %) 50.7 Lymphocytes % (20.5 - 51.1 %) 32.4 Monocytes % (1.7 - 9.3 %) 10.6 H Eosinophils % (0 - 5 %) 5.7 H Basophils % (0.0 - 2.0 %) 0.6 Absolute Granulocytes (1.4 - 6.5 /CUMM) 3.5 Absolute Lymphocytes (1.2 - 3.4 /CUMM) 2.2 Absolute Monocytes (0.10 - 0.60 /CUMM) 0.7 H Absolute Eosinophils (0.0 - 0.7 /CUMM) 0.4 Absolute Basophils (0.0 - 0.2 /CUMM) 0 Urines Urine Color (YEL,AMB,STR) YEL Urine Clarity (CLEAR) CLEAR Urine pH (5.0 - 8.0) 6.0 Ur Specific White Owl (1.001 - 1.035) 1.020 Urine Protein (NEG,<30 MG/DL) NEG Urine Ketones (NEG) NEG Urine Nitrite (NEG) NEG Urine Bilirubin (NEG) NEG Urine Urobilinogen (0.1 - 1.0 EU/dl) 0.2 Ur Leukocyte Esterase (NEG) NEG Ur Microscopic SEDIMENT EXAMINED Urine RBC (0 - 5 /HPF) RARE Urine WBC (0 - 2 /HPF) RARE Ur Epithelial Cells (NONE,FEW) RARE Urine Mucus (FEW,NONE) RARE Urine Hemoglobin (NEG) TRACE-INTACT H Urine Glucose (N MG/DL) NEG 09/20 1838 Urines Ur Random Creatinine (mg/dL) 74.9 Ur Random Sodium (30 - 90 mmol/L) 76 Ur Random Potassium (mmol/L) 24.3 Fraction Sodium Excret (<1% %) 1.1 H A/P; 77 y/o wity pmh sig for [id number]-toegcecle diabetes, hypertension, cecal polyp status post right colectomy, BPH, alcoholic liver cirrhosis, remote history of alcohol abuse 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 Continue current eval is recommended acquired pneumonia. Patient has been started on Rifaximine per GI recommendations. He will complete the Mucomyst/ acetylcysteine protocol per GI or commendations. Initially we discontinued it but then I reordered it after reviewing the previous notes from GI and after discussing with pharmacist. Continue the rest of the management. Patient will be evaluated by physical therapy.
[2017-09-21 11:39] LABS: PT 19.7 SEC (9.4-12.5)
[2017-09-21 11:58] LABS: ABSOLUTE BASOPHIL COUNT 0 /CUMM (0.0-0.2); ABSOLUTE EOSINOPHIL COUNT 0.4 /CUMM (0.0-0.7); ABSOLUTE GRANULOCYTE CT 3.5 /CUMM (1.4-6.5); ABSOLUTE LYMPH COUNT 2.2 /CUMM (1.2-3.4); ABSOLUTE MONOCYTE COUNT 0.7 /CUMM (0.10-0.60); BASOPHIL % 0.6 % (0.0-2.0); EOSINOPHIL % 5.7 % (0-5); GRANULOCYTE % 50.7 % (42.2-75.2); HEMATOCRIT 44.3 % (42-52); MEAN CORPUSCULAR HGB 31.6 PG (27.0-31.0); MEAN CORPUSCULAR HGB CONC 33.6 G/DL (33.0-37.0); MEAN CORPUSCULAR VOLUME 94.2 FL (80.0-94.0); MEAN PLATELET VOLUME 10.9 FL (7.4-10.4); PLATELET COUNT 65 /CUMM (130-400); RBC DISTRIBUTION WIDTH 16.2 % (11.5-14.5); WHITE BLOOD CELL COUNT 6.9 /CUMM (4.8-10.8)
[2017-09-21 15:26] VITALS: BP 130/68
--- NOTE | 2017-09-21 16:00 | PN- Gastroenterology ---
Assessment/Plan GI Assessment/Recommendations: 77 y/o male, HTN, DM, EtOH cirrhosis, thrombocytopenia, post ventral hernia repair, BPH, B/L TKR, YANG-> CPAP, ex-smoker, post right hemicolectomy, AP, & 4 cm of TI 03/16/11: benign cecal TA. 07/31/17: EGD/colonoscopy to zoe-TI, per Dr. 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 *The patient was then put on Nadolol 20 g daily for variceal prophylaxis & Omeprazole 20 mg daily. The patient reportedly has chronic diarrhea, which may be from his right hemicolectomy, with interruption of the enterohepatic reuptake of bile salts. He had been on Clindamycin in 03/2017. He reportedly stopped EtOH in 03/2017. The patient was admitted to [facility] 09/18/17, with 5 days of generalized weakness, lethargy, & fevers, with cough productive of whitish sputum. On admission, he had low-grade fever (T- 100), f/b T 102.7, with O2 sat RA 94%. Please note, 09/13/17: Complete abdominal sono (per Dr. Boone ACLS NURSE)- small volume ascites ( probably too small to tap), diffuse wall thickening of the gallbladder probably secondary to ascites, multiple gallstones, enlarged spleen with multiple small echogenic mass is of uncertain etiology, possible hemangiomas. 09/17/17: CXR per PMD- NAD. Imaging studies on 09/18/17: admission were suggestive of a community-acquired pneumonia & bronchitis. *09/18/17: CXR- Thickening of the central bronchial interstitium which could be due to airways inflammation from viral/atypical infection. Pulmonary interstitial edema and venous congestion also possible.09/18/17:*CTA chest- no evidence of PE, with chronic precarinal and subcarinal adenopathy, persistent nodularity in the RUL & patchy areas of opacification in right upper lung zone laterally in the right base. No significant infiltrate or effusion in left lung. Mild ascites & probable splenomegaly. 09/18/17: EKG: NSR with no acute ST-T wave changes. *The patient was empirically put on Ceftriaxone & Azithromycin. He was felt not to have any tappable ascites. He was seen in covering GI consultation by Dr. Phan 09/19/17. Lactulose was added in addition to antibiotics. Pulmonary consultation was advised. The patient's primary problem was felt to be due to his probable pneumonia, rather than PSE/cirrhosis. (*The patient's GI care was assumed by myself 09/20/17. Please refer to Dr. Phan's covering GI consultation of 09/19/17. The patient is normally followed for GI by Dr. Boone. *Extensive records reviewed). 04/24/17: *ROSE + > 1:2560 homogeneous, per Dr. Curtis. 06/04/17: nl A1AT 182 (83-199), elevated 5'NTD 42 (0-10), + anti-smooth muscle Ab 25, AMA < 20, Fe 125, TIBC 288, Fe sat 43.4%, ferritin 220. 08/21/17: nl AFP 2.3 *Multiple cultures negative to date, including UC, Strep Pneumo urinary Ag, & Legionella urinary Ag. 09/19/17: 1 of 2 BC: GPC in clusters- Staph Epi ( contaminant). 09/18/17: Rapid viral influenza A/B- neg. 09/19/17: stool C.difficile- neg. 09/18/17: WBC 6.8, H/H 15.5/45.6, MCV 93.7, RDW 15.3, PLT 48, *elevated d-dimer 2311, PT 17.9, INR 1.63, PTT 39, glucose 127, BUN/Cr 22/1.2, GFR 59, Na 138. K 4.4, HCO3 26, AG 12, *lactate 2.6, Ca 9.6, albumin 3.4, globulin 5.2, TBil 2.6, alk phos 354, AST 153, ALT 107, [Tylenol] < 10, troponin < 0.01, elevated BNP 739. 09/19/17: WBC 7.1, H/H 14.2/44.4, MCV 93.5, RDW 15.7, PLT 47, BUN/Cr 24/1.2, GFR 59, Na 140, K 4.2, HCO3 21, AG 14, albumin 2.7, TBil 2.6/DBil 1.5, alk phos 292, AST 118, ALT 93 09/20/17: WBC 6.6 (56S/14B/20L/6M/4E), H/H 15.3/45.2, MCV 95.2, RDW 16, PLT 50, BUN/Cr 40/1.6, *GFR 42, Na 142, K 4.4, HCO3 22, AG 12. *As of 09/20/17, the patient was hemodynamically stable with O2 sat RA 93%, T 97.9 with Tm 101.4. He had a mild cough productive of whitish sputum. He denied any symptoms of UTI. He admitted to intermittent low-grade fevers, without any chills. He denied any chest pain or shortness of breath. He had no pleuritic pain or hemoptysis. His mentation has improved. He was A & Ox3. He denied any abdominal pain. He denied any pruritus, dark urine, or light stools. *His decreased GFR was noted. There was no overt GI bleeding, melena, or hematemesis. He denied any confusion, increased abdominal girth, or peripheral edema. *The patient had received 2 doses of Ibuprofen. *Additionally, he may have been getting dehydrated from his Lactulose. *Both of these may have contributed to his drop in GFR, along with the IV contrast received at the 09/18/17: CTA chest. *HRS less likely, but possible. *The patient was also on HCTZ 12.5 mg daily & Losartan. *I agree that his major issue was PNA, superimposed on cirrhosis. He claimed he last drank EtOH in 03/2017. 09/20/17: US-LIMITED ABDOMEN- No significant change since prior study dated 09/13/2017- cirrhotic liver, no HCC, GB wall thickening due to ascites, known gallstones with negative Rodriguez sign, nl CBD 4 mm, nl right kidney, very small amt fluid around liver. 09/20/17: CT ABD & PELVIS W/ ORAL CONTRAST- 1. Small volume ascites is noted. 2. Moderate splenomegaly. 3. Mildly enlarged prostate. No hydronephrosis. Left renal cyst. 4. No CT evidence of any acute intra-abdominal and/or intrapelvic pathology. Specifically, no CT evidence of acute diverticulitis. I reviewed the 09/20/[address] Tafoya, of [facility] on 09/21/17. The amount of ascites is scant. It is near the diaphragm & the GB, & as the patient is improving on antibiotics for PNA, the risk:benefit ratio does not warrant needling the ascites for the low chance of SBP. 09/20/17: Henrry 76, FENa 1.1 (*both elevated, going against HRS-> ? ATN). 09/21/17: WBC 6.9, H/H 14.9/44.3, MCV 94.2, RDW 16.2, PLT 65, PT 19.7, INR 1.80, *BUN/Cr 31/1.3, *GFR 54, Na 141, K 3.8, HCO3 22, AG 13. As of 09/21/17, the patient's GFR was improving on current therapy. HCTZ was held, Mucomyst was rxd post IV contrast (finished), NSAIDs were D/C'd, Lactulose was switched to Rifaximin 550 mg po BID, & SPA 25g IVPB Q8h was rxd. The patient remained on Azithromycin & Ceftriaxone. He was hemodynamically stable & afebrile (BP 130/68, P 65, R 20, T 98.3, with O2 sat RA 93%. He was no longer having low grade fevers. The coag negative Staph in 09/19/17: 1 of 2 BC was a contaminant, consistent with Staph Epi. The patient had no new complaints. He denied any chest pain or shortness of breath. His cough was improved. He denied any abdominal pain, confusion, fevers, chills, sx UTI, increasing abdominal girth, edema, or worsening jaundice. There was no overt GI bleeding or melena. *SUGGEST: Gentle IVF. *No NSAIDs! *Patient completed trial of IV Mucomyst, post IV contrast. *Lactulose on hold. *Continue Rifaximin 550 mg po BID for possible PSE. *Continue to hold HCTZ. Carefully continue Losartan for now. May continue Nadolol 20 mg daily for variceal prophylaxis. *Continue to hold Omeprazole 20 mg daily for now (PPI can cause allergic interstitial nephritis). *Continue empiric SPA 25g IV Q8h for now. *Close follow-up of CBC, BUN/Cr, GFR, lytes, LFTs, INR. Follow-up cultures. *Continue Azithromycin & Ceftriaxone, per medicine. TRC. * Consider pulmonary input. 2g Na+ DM diet. *Consider renal input if GFR continues to fall (GFR currently improving). DVT prophylaxis. Mobilize patient with assistance. *Consideration for outpt PET/CT, regarding nonspecific mediastinal nodes & splenic lesions (d/w pt). *Consideration for outpt liver bx as platelet count allows (50K), regarding +ROSE > 1:2560 (rule out superimposed AIH; d/w pt-> *severe fibrosis on 06/04/17: Fibrotest, with fibrosis score 0.94, per Dr. Boone.). *Consider checking full Hep A, B, & C serologies. The above was previously discussed with the medical house staff. *If stable, will sign off from GI perspective tomorrow. *The pt was told to follow-up with Dr. Curtis for primary care & his usual GI MD, Dr. Boone, after D/C. Problem List: 1. Liver cirrhosis 2. Change in mental status 3. Pneumonia 4. Renal insufficiency 5. Malnutrition 6. Thrombocytopenia 7. Coagulopathy 8. Elevated LFTs 9. Ascites 10. History of colon polyps 11. Esophageal varices Subjective Subjective: 09/20/17: US-LIMITED ABDOMEN- No significant change since prior study dated 09/13/2017- cirrhotic liver, no HCC, GB wall thickening due to ascites, known gallstones with negative Rodriguez sign, nl CBD 4 mm, nl right kidney, very small amt fluid around liver. 09/20/17: CT ABD & PELVIS W/ ORAL CONTRAST- 1. Small volume ascites is noted. 2. Moderate splenomegaly. 3. Mildly enlarged prostate. No hydronephrosis. Left renal cyst. 4. No CT evidence of any acute intra-abdominal and/or intrapelvic pathology. Specifically, no CT evidence of acute diverticulitis. I reviewed the 09/20/[address] Tafoya, of [facility] on 09/21/17. The amount of ascites is scant. It is near the diaphragm & the GB, & as the patient is improving on antibiotics for PNA, the risk:benefit ratio does not warrant needling the ascites for the low chance of SBP. 09/20/17: Henrry 76, FENa 1.1 (*both elevated, going against HRS-> ? ATN). 09/21/17: WBC 6.9, H/H 14.9/44.3, MCV 94.2, RDW 16.2, PLT 65, PT 19.7, INR 1.80, *BUN/Cr 31/1.3, *GFR 54, Na 141, K 3.8, HCO3 22, AG 13. As of 09/21/17, the patient's GFR was improving on current therapy. HCTZ was held, Mucomyst was rxd post IV contrast (finished), NSAIDs were D/C'd, Lactulose was switched to Rifaximin 550 mg po BID, & SPA 25g IVPB Q8h was rxd. The patient remained on Azithromycin & Ceftriaxone. He was hemodynamically stable & afebrile (BP 130/68, P 65, R 20, T 98.3, with O2 sat RA 93%. He was no longer having low grade fevers. The coag negative Staph in 09/19/17: 1 of 2 BC was a contaminant, consistent with Staph Epi. The patient had no new complaints. He denied any chest pain or shortness of breath. His cough was improved. He denied any abdominal pain, confusion, fevers, chills, sx UTI, increasing abdominal girth, edema, or worsening jaundice. There was no overt GI bleeding or melena. Review of Systems: Full 14 point ROS otherwise noncontributory, and as above. Constitutional: Reports: fever; weakness-> improving. EENTM: Reports: no symptoms. Cardiovascular: Reports: no symptoms. Respiratory: Reports: mild cough-> improved. GI: Reports: diarrhea-> better (*Lactulose held for decreased GFR). Genitourinary: Reports: no symptoms. Musculoskeletal: Reports: no symptoms. Skin: Reports: no symptoms. Neurological/Psychological: Reports: no symptoms; no longer confused. Hematologic/Endocrine: Reports: no symptoms. Objective Vital Signs and I&Os Vital Signs Date Time Temp Pulse Resp B/P B/P Pulse O2 O2 Flow FiO2 Mean Ox Delivery Rate 09/21 1526 98.3 65 20 130/68 93 Room Air 09/21 0918 68 128/78 09/21 0730 98.0 65 18 131/70 94 Room Air 09/21 0000 Room Air 09/20 2306 98.5 60 18 127/69 93 Room Air 09/20 1620 Room Air Intake & Output 09/21 1600 09/21 0400 09/20 1600 09/20 0400 09/19 1600 09/19 0400 Intake Total 2200 1750 209 564 2487 Output Total 1475 1773 127 2520 Balance 725 550 260 -500 1000 Intake, IV 1100 6900 065 9951 Intake, Oral 1100 600 450 500 Number 3 3 2 2 2 Bowel Movements Output, 500 Gastric Drainage Output, Urine 1475 1200 490 500 Patient 192 lb 195 lb 195 lb 175 lb Weight Weight Bed scale Bed scale Reported by Patient Measurement Method Physical Exam: Well-developed, slightly malnourished, obese male, in no apparent distress. Sclera minimally icteric. Conjunctiva pink. Oropharynx clear. No oral thrush. No aphthous ulcers. Slightly dry mucus membranes. There is no adenopathy, thyromegaly, or JVD. No peripheral stigmata of inflammatory bowel disease on exam. Few+ spiders on the anterior chest wall. No gynecomastia. No CVA tenderness. No spine tenderness. Lungs: clear to A&P, except for a few rhonchi at the left base. No wheezing or rales. Heart exam: regular rate rhythm, S1 and S2, without significant murmur. Abdominal exam: normal bowel sounds, soft. obese belly, nontender without guarding or rebound. No definite mass, except for perhaps a tiny reducible umbilical hernia. Liver approximately 14 cm by percussion. Negative Rodriguez sign. Borderline palpable spleen tip. No definite fluid shift. No pulsatile mass. No epigastric bruit. Digital rectal exam: deferred at present. Extremities: without C, C, or E. B/L TKR. Moderate DJD. No palpable cords. No palmar erythema. No Dupuytren's contractures. Distal pulses 2+ bilaterally. DTRs 2+ bilaterally. Currently, alert and oriented x 3. Brief neurologic exam: nonfocal, although a detailed exam for peripheral neuropathy was deferred. Motor: 5/5 B/L. No tremor. No asterixis. Current Medications: Current Medications Sig/Dimple Start time Last Medication Dose Route Stop Time Status Admin Acetylcysteine 4,060.936 MG ONCE ONE 09/21 1932 DC Dextrose/Water 1,000 ML IV 09/22 1213 Acetylcysteine 8,845.1 MG ONCE ONE 09/21 0009 DC 09/21 Dextrose/Water 1,000 ML IV 09/21 1651 0802 Acetylcysteine 4,422.55 MG ONCE ONE 09/20 2100 DC 09/21 Dextrose/Water 500 ML IV 09/21 0110 0137 Acetylcysteine 13,267.65 MG ONCE ONE 09/20 1915 DC 09/20 Dextrose/Water 200 ML IV 09/20 2034 2042 Albumin Human 25 GM Q8 09/20 1717 AC 09/21 IV 1558 Azithromycin 500 MG Q24H 09/19 2030 AC 09/20 Dextrose/Water 250 ML IV 2218 Ceftriaxone Sodium 1,000 MG Q24H 09/19 2030 AC 09/20 IV 2041 Dextrose/Sodium 1,000 ML Q13H 09/20 0930 AC 09/20 Chloride IV 0930 Docusate Sodium 100 MG BID 09/19 1000 AC 09/20 PO 2218 Hydrochlorothiazide 12.5 MG DAILY 09/19 1000 DC 09/20 PO 0907 Insulin Aspart 0 TIDAC 09/21 0800 AC 09/21 SC 1257 Insulin Human Regular 0 Q6 09/20 1200 DC 09/20 SC 1836 Lactulose 20 GM BID 09/19 1429 DC 09/19 PO 2053 Losartan Potassium 50 MG DAILY 09/19 1000 AC 09/21 PO 0918 Nadolol 20 MG DAILY 09/19 1000 AC 09/21 PO 0932 Omeprazole 20 MG DAILY 09/19 1000 DC 09/20 PO 0907 Polyethylene Glycol 17 GM DAILY 09/19 1000 AC 09/19 PO 1034 Rifaximin 550 MG BID 09/20 2200 AC 09/21 PO 0918 Tamsulosin HCl 0.4 MG DAILY 09/19 1000 AC 09/21 PO 0918 Results Pertinent Lab Results: Laboratory Tests 09/21 09/20 1039 1838 Chemistry Sodium (137 - 145 mmol/L) 141 Potassium (3.5 - 5.1 mmol/L) 3.8 Chloride (98 - 107 mmol/L) 106 Carbon Dioxide (22 - 30 mmol/L) 22 Anion Gap (5 - 16) 13 BUN (9 - 20 mg/dL) 31 H Creatinine (0.7 - 1.2 mg/dL) 1.3 H Estimated GFR (>60 ml/min) 54 L BUN/Creatinine Ratio (7 - 25 %) 23.8 Coagulation PT (9.4 - 12.5 SEC) 19.7 H INR (0.90 - 1.17) 1.80 H Hematology CBC w Diff NO MAN DIFF REQ WBC (4.8 - 10.8 /CUMM) 6.9 RBC (4.70 - 6.10 /CUMM) 4.70 Hgb (14.0 - 18.0 G/DL) 14.9 Hct (42 - 52 %) 44.3 MCV (80.0 - 94.0 FL) 94.2 H MCH (27.0 - 31.0 PG) 31.6 H MCHC (33.0 - 37.0 G/DL) 33.6 RDW (11.5 - 14.5 %) 16.2 H Plt Count (130 - 400 /CUMM) 65 L MPV (7.4 - 10.4 FL) 10.9 H Gran % (42.2 - 75.2 %) 50.7 Lymphocytes % (20.5 - 51.1 %) 32.4 Monocytes % (1.7 - 9.3 %) 10.6 H Eosinophils % (0 - 5 %) 5.7 H Basophils % (0.0 - 2.0 %) 0.6 Absolute Granulocytes (1.4 - 6.5 /CUMM) 3.5 Absolute Lymphocytes (1.2 - 3.4 /CUMM) 2.2 Absolute Monocytes (0.10 - 0.60 /CUMM) 0.7 H Absolute Eosinophils (0.0 - 0.7 /CUMM) 0.4 Absolute Basophils (0.0 - 0.2 /CUMM) 0 Urines Urine Color (YEL,AMB,STR) YEL Urine Clarity (CLEAR) CLEAR Urine pH (5.0 - 8.0) 6.0 Ur Specific Burlison (1.001 - 1.035) 1.020 Urine Protein (NEG,<30 MG/DL) NEG Urine Ketones (NEG) NEG Urine Nitrite (NEG) NEG Urine Bilirubin (NEG) NEG Urine Urobilinogen (0.1 - 1.0 EU/dl) 0.2 Ur Leukocyte Esterase (NEG) NEG Ur Microscopic SEDIMENT EXAMINED Urine RBC (0 - 5 /HPF) RARE Urine WBC (0 - 2 /HPF) RARE Ur Epithelial Cells (NONE,FEW) RARE Urine Mucus (FEW,NONE) RARE Urine Hemoglobin (NEG) TRACE-INTACT H Urine Glucose (N MG/DL) NEG 09/20 09/20 09/19 1878 0325 6790 Chemistry Sodium (137 - 145 mmol/L) 142 Potassium (3.5 - 5.1 mmol/L) 4.4 Chloride (98 - 107 mmol/L) 108 H Carbon Dioxide (22 - 30 mmol/L) 22 Anion Gap (5 - 16) 12 BUN (9 - 20 mg/dL) 40 H Creatinine (0.7 - 1.2 mg/dL) 1.6 H Estimated GFR (>60 ml/min) 42 L BUN/Creatinine Ratio (7 - 25 %) 25.0 Total Bilirubin Cancelled Direct Bilirubin Cancelled AST Cancelled ALT Cancelled Alkaline Phosphatase Cancelled Total Protein Cancelled Albumin Cancelled Hematology CBC w Diff MAN DIFF ORDERED WBC (4.8 - 10.8 /CUMM) 6.6 RBC (4.70 - 6.10 /CUMM) 4.75 Hgb (14.0 - 18.0 G/DL) 15.3 Hct (42 - 52 %) 45.2 MCV (80.0 - 94.0 FL) 95.2 H MCH (27.0 - 31.0 PG) 32.1 H MCHC (33.0 - 37.0 G/DL) 33.7 RDW (11.5 - 14.5 %) 16.0 H Plt Count (130 - 400 /CUMM) 50 L MPV (7.4 - 10.4 FL) 10.6 H Gran % (42.2 - 75.2 %) 67.2 Lymphocytes % (20.5 - 51.1 %) 23.4 Monocytes % (1.7 - 9.3 %) 7.7 Eosinophils % (0 - 5 %) 1.4 Basophils % (0.0 - 2.0 %) 0.3 Absolute Granulocytes (1.4 - 6.5 /CUMM) 4.4 Segmented Neutrophils (42.2 - 75.2 %) 56 Band Neutrophils (0.0 - 5.0 %) 14 H Absolute Lymphocytes (1.2 - 3.4 /CUMM) 1.5 Lymphocytes (20.5 - 51.1 %) 20 L Monocytes (1.7 - 9.3 %) 6 Absolute Monocytes (0.10 - 0.60 /CUMM) 0.5 Eosinophils (0 - 5.0 %) 4 Absolute Eosinophils (0.0 - 0.7 /CUMM) 0.1 Absolute Basophils (0.0 - 0.2 /CUMM) 0 Platelet Estimate (ADEQUATE) DECREASED Normocytic RBCs VERIFIED Normochromic RBCs VERIFIED Toxicology Acetaminophen Cancelled Urines Ur Random Creatinine (mg/dL) 74.9 Ur Random Sodium (30 - 90 mmol/L) 76 Ur Random Potassium (mmol/L) 24.3 Fraction Sodium Excret (<1% %) 1.1 H 09/19 09/19 0901 0705 Chemistry Sodium (137 - 145 mmol/L) 140 Potassium (3.5 - 5.1 mmol/L) 4.2 Chloride (98 - 107 mmol/L) 105 Carbon Dioxide (22 - 30 mmol/L) 21 L Anion Gap (5 - 16) 13 BUN (9 - 20 mg/dL) 24 H Creatinine (0.7 - 1.2 mg/dL) 1.2 Estimated GFR (>60 ml/min) 59 L BUN/Creatinine Ratio (7 - 25 %) 20.0 Total Bilirubin (0.2 - 1.3 mg/dL) 2.5 H 2.6 H Direct Bilirubin (< 0.4 mg/dL) 1.3 H 1.5 H AST (17 - 59 U/L) 117 H 118 H ALT (21 - 72 U/L) 91 H 93 H Alkaline Phosphatase (< 127 U/L) 289 H 292 H Total Protein (6.3 - 8.2 g/dL) 7.2 7.3 Albumin (3.5 - 5.0 g/dL) 2.8 L 2.7 L Hematology CBC w Diff MAN DIFF ORDERED WBC (4.8 - 10.8 /CUMM) 7.1 RBC (4.70 - 6.10 /CUMM) 4.74 Hgb (14.0 - 18.0 G/DL) 15.2 Hct (42 - 52 %) 44.4 MCV (80.0 - 94.0 FL) 93.5 MCH (27.0 - 31.0 PG) 32.0 H MCHC (33.0 - 37.0 G/DL) 34.2 RDW (11.5 - 14.5 %) 15.7 H Plt Count (130 - 400 /CUMM) 47 L MPV (7.4 - 10.4 FL) 10.7 H Gran % (42.2 - 75.2 %) 70.4 Lymphocytes % (20.5 - 51.1 %) 18.7 L Monocytes % (1.7 - 9.3 %) 9.3 Eosinophils % (0 - 5 %) 1.2 Basophils % (0.0 - 2.0 %) 0.4 Absolute Granulocytes (1.4 - 6.5 /CUMM) 5.0 Segmented Neutrophils (42.2 - 75.2 %) 68 Band Neutrophils (0.0 - 5.0 %) 12 H Absolute Lymphocytes (1.2 - 3.4 /CUMM) 1.3 Lymphocytes (20.5 - 51.1 %) 14 L Monocytes (1.7 - 9.3 %) 6 Absolute Monocytes (0.10 - 0.60 /CUMM) 0.7 H Absolute Eosinophils (0.0 - 0.7 /CUMM) 0.1 Absolute Basophils (0.0 - 0.2 /CUMM) 0 Anisocytosis 1+ Toxicology Acetaminophen (10.0 - 30.0 ug/mL) < 10.0 L 09/18 1801 Chemistry Lactic Acid (0.7 - 2.1 mmol/L) 2.0 Coagulation PT (9.4 - 12.5 SEC) 17.9 H INR (0.90 - 1.17) 1.63 H APTT (25 - 37 SEC) 39 H D-Dimer High Sensitivty (0 - 243 ng/ml) 2311 H Urines Urine Color (YEL,AMB,STR) ABHINAV Urine Clarity (CLEAR) CLEAR Urine pH (5.0 - 8.0) 5.5 Ur Specific B[place]ison (1.001 - 1.035) 1.015 Urine Protein (NEG,<30 MG/DL) TRACE H Urine Ketones (NEG) NEG Urine Nitrite (NEG) NEG Urine Bilirubin (NEG) NEG@ICTO Urine Urobilinogen (0.1 - 1.0 EU/dl) 0.2 Ur Leukocyte Esterase (NEG) NEG Ur Microscopic SEDIMENT EXAMINED Urine RBC (0 - 5 /HPF) RARE Urine WBC (0 - 2 /HPF) RARE Ur Epithelial Cells (NONE,FEW) RARE Urine Bacteria (NEG/NONE) RARE H Urine Hemoglobin (NEG) NEG Urine Glucose (N MG/DL) NEG Imaging/Other Studies: 09/13/17: Complete abdominal sono (per Dr. Boone ACLS NURSE)- small volume ascites ( probably too small to tap), diffuse wall thickening of the gallbladder probably secondary to ascites, multiple gallstones, enlarged spleen with multiple small echogenic mass is of uncertain etiology, possible hemangiomas. 09/17/17: CXR per PMD- NAD. 09/18/17: *Admission CXR- Thickening of the central bronchial interstitium which could be due to airways inflammation from viral/atypical infection. Pulmonary interstitial edema and venous congestion also possible. 09/18/17:*CTA chest- no evidence of PE, with chronic precarinal and subcarinal adenopathy, persistent nodularity in the RUL & patchy areas of opacification in right upper lung zone laterally in the right base. No significant infiltrate or effusion in left lung. Mild ascites & probable splenomegaly. 09/18/17: EKG: NSR with no acute ST-T wave changes. 09/20/17: US-LIMITED ABDOMEN- No significant change since prior study dated 09/13/2017- cirrhotic liver, no HCC, GB wall thickening due to ascites, known gallstones with negative Rodriguez sign, nl CBD 4 mm, nl right kidney, very small amt fluid around liver. 09/20/17: CT ABD & PELVIS W/ ORAL CONTRAST- 1. Small volume ascites is noted. 2. Moderate splenomegaly. 3. Mildly enlarged prostate. No hydronephrosis. Left renal cyst. 4. No CT evidence of any acute intra-abdominal and/or intrapelvic pathology. Specifically, no CT evidence of acute diverticulitis. I reviewed the 09/20/[address] Tafoya, of [facility] on 09/21/17. The amount of ascites is scant. It is near the diaphragm & the GB, & as the patient is improving on antibiotics for PNA, the risk:benefit ratio does not warrant needling the ascites for the low chance of SBP.
[2017-09-21 23:51] VITALS: BP 143/73
[2017-09-22 07:01] VITALS: BP 143/82
[2017-09-22 08:17] LABS: ABSOLUTE BASOPHIL COUNT 0 /CUMM (0.0-0.2); ABSOLUTE EOSINOPHIL COUNT 0.4 /CUMM (0.0-0.7); ABSOLUTE GRANULOCYTE CT 3.2 /CUMM (1.4-6.5); ABSOLUTE LYMPH COUNT 1.7 /CUMM (1.2-3.4); ABSOLUTE MONOCYTE COUNT 0.6 /CUMM (0.10-0.60); BASOPHIL % 0.7 % (0.0-2.0); EOSINOPHIL % 6.6 % (0-5); GRANULOCYTE % 54.3 % (42.2-75.2); HEMATOCRIT 43.3 % (42-52); MEAN CORPUSCULAR HGB 32.2 PG (27.0-31.0); MEAN CORPUSCULAR HGB CONC 34.1 G/DL (33.0-37.0); MEAN CORPUSCULAR VOLUME 94.4 FL (80.0-94.0); MEAN PLATELET VOLUME 10.7 FL (7.4-10.4); PLATELET COUNT 60 /CUMM (130-400); RED BLOOD CELL CT 4.59 /CUMM (4.70-6.10); WHITE BLOOD CELL COUNT 5.9 /CUMM (4.8-10.8)
--- NOTE | 2017-09-22 08:26 | PN- Housestaff ---
Stewart KENT,Penelope 09/22/17 0826: Subjective Follow-up For: Pneumonia Complaints: no complaints Subjective: Patient seen and examined at bedside. He is comfortably sitting in his bed in no acute distress. No overnight events. He is conscious, well oriented 3. He had one formed bowel movement today. He denies chest pain, cough, fever, abdominal pain, weakness more diarrhea. Review of Systems Constitutional: Reports: see HPI. Objective Last 24 Hrs of Vital Signs/I&O Vital Signs Date Time Temp Pulse Resp B/P B/P Pulse O2 O2 Flow FiO2 Mean Ox Delivery Rate 09/22 0829 78 122/78 09/22 0701 98.8 69 20 143/82 94 Room Air 09/21 2351 98.9 75 18 143/73 92 Room Air 09/21 1526 98.3 65 20 130/68 93 Room Air Intake & Output 09/22 1600 09/22 0800 09/22 0000 Intake Total 1080 1417.5 Output Total 400 350 Balance 680 1067.5 Intake, IV 600 437.5 Intake, Oral 480 980 Number 1 1 1 Bowel Movements Output, Urine 400 350 Patient 204 lb Weight Weight Bed scale Measurement Method Physical Exam General Appearance: Alert, Oriented X3, Cooperative Cardiovascular: Regular Rate, Normal S1, Normal S2, No Murmurs Lungs: Normal Air Movement Abdomen: Normal Bowel Sounds, Soft, No Tenderness, No Hepatospenomegaly Neurological: Normal Speech, Strength at 5/5 X4 Ext, Normal Tone, Sensation Intact Extremities: No Cyanosis, No Edema, Normal Pulses Current Medications: Current Medications Sig/Dimple Start time Last Medication Dose Route Stop Time Status Admin Acetylcysteine 8,708.973 MG ONCE ONE 09/21 193 DC Dextrose/Water 1,000 ML IV 09/22 1213 Albumin Human 25 GM Q8 09/20 1717 AC 09/22 IV 0607 Azithromycin 500 MG Q24H 09/19 2029 AC 09/21 Dextrose/Water 250 ML IV 222 Ceftriaxone Sodium 1,000 MG Q24H 09/19 2030 AC 09/21 IV 2229 Dextrose/Sodium 1,000 ML Q13H 09/20 0930 DC 09/22 Chloride IV 0439 Docusate Sodium 100 MG BID 09/19 1000 AC 09/20 PO 2218 Insulin Aspart 0 TIDAC 09/21 0800 AC 09/21 SC 1257 Losartan Potassium 50 MG DAILY 09/19 1000 AC 09/22 PO 0829 Nadolol 20 MG DAILY 09/19 1000 AC 09/22 PO 0829 Polyethylene Glycol 17 GM DAILY 09/19 1000 AC 09/19 PO 1034 Rifaximin 550 MG BID 09/20 2200 AC 09/22 PO 0829 Tamsulosin HCl 0.4 MG DAILY 09/19 1000 AC 09/22 PO 0829 Last 24 Hrs of Lab/Sonu Results Last 24 Hrs of Labs/Mics: Laboratory Tests 09/22/17 0615: Anion Gap 14, Estimated GFR > 60, BUN/Creatinine Ratio 22.7, CBC w Diff NO MAN DIFF REQ, RBC 4.59 L, MCV 94.4 H, MCH 32.2 H, MCHC 34.1, RDW 16.0 H, MPV 10.7 H, Gran % 54.3, Lymphocytes % 28.3, Monocytes % 10.1 H, Eosinophils % 6.6 H, Basophils % 0.7, Absolute Granulocytes 3.2, Absolute Lymphocytes 1.7, Absolute Monocytes 0.6, Absolute Eosinophils 0.4, Absolute Basophils 0, Hepatitis A IgM Ab Pending, Hep Bs Antigen NONREACTIVE, Hep B Core IgM Ab Conf Pending, Hepatitis C Antibody Pending Assessment/Plan Assessment: Assessment: Patient is 77-year-old male with past medical history significant for aiv-ioepwiw-lmwklqvix diabetes, hypertension, cecal polyp status post right colectomy, BPH, alcoholic liver cirrhosis, remote history of alcohol abuse 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 Assessment and plan 1. Community-acquired pneumonia-patient has right upper lobe pneumonia treated with IV ceftriaxone and azithromycin. Will continue TRC nebulization. Continue cough syrup. On CAT scan patient has central lymphadenopathy. Malignancy needs to be ruled out. Seen by pulmonology who suggested outpatient PET scan. His pneumonia can be postobstructive too. 2. Hepatic encephalopathy-upon admission patient was confused. This can be secondary due to pneumonia 3. Patient did have a bowel movement today. Lactulose was held in view of diarrhea. Rifaximin was started by GI and we will continue the same. 4. There was a question of increased Tylenol use during admission. Tylenol level was normal. 5. Patient had an ultrasound right upper quadrant and CT abdomen and pelvis- negative for cholelithiasis/diverticulitis. 6. Avoid NSAID, lactulose, hydrochlorothiazide, omeprazole Code-full code Diet-diabetic diet Problem List: 1. Pneumonia Pain Ratin Pain Location: None Pain Goal: Remain pain free Pain Plan: Tylenol Tomorrow's Labs & Rationales: CBC, BEP Nae Kothari MD 09/22/17 1256: Attending MD Review Statement Attending Statement Attending MD Statement: examined this patient, discuss w/resident/PA/AIR PUMPER, agreed w/resident/PA/AIR PUMPER, discussed with family, reviewed EMR data (avail), discussed with nursing, discussed with case mgmt, reviewed images, amended to note Attending Assessment/Plan: Patient seen and examined, overall doing much better. Remains afebrile. Not requiring any oxygen. Vital Signs Date Time Temp Pulse Resp B/P B/P Pulse O2 O2 Flow FiO2 Mean Ox Delivery Rate 09/22 0829 78 122/78 09/22 0701 98.8 69 20 143/82 94 Room Air 09/21 2351 98.9 75 18 143/73 92 Room Air 09/21 1526 98.3 65 20 130/68 93 Room Air on exam; aox3, nad. cv; s1,s2, rrr resp; clear abd; soft, nt, bs+ ext; no edema Laboratory Tests 09/22 0615 Chemistry Sodium (137 - 145 mmol/L) 143 Potassium (3.5 - 5.1 mmol/L) 3.7 Chloride (98 - 107 mmol/L) 107 Carbon Dioxide (22 - 30 mmol/L) 22 Anion Gap (5 - 16) 14 BUN (9 - 20 mg/dL) 25 H Creatinine (0.7 - 1.2 mg/dL) 1.1 Estimated GFR (>60 ml/min) > 60 BUN/Creatinine Ratio (7 - 25 %) 22.7 Hematology CBC w Diff NO MAN DIFF REQ WBC (4.8 - 10.8 /CUMM) 5.9 RBC (4.70 - 6.10 /CUMM) 4.59 L Hgb (14.0 - 18.0 G/DL) 14.8 Hct (42 - 52 %) 43.3 MCV (80.0 - 94.0 FL) 94.4 H MCH (27.0 - 31.0 PG) 32.2 H MCHC (33.0 - 37.0 G/DL) 34.1 RDW (11.5 - 14.5 %) 16.0 H Plt Count (130 - 400 /CUMM) 60 L MPV (7.4 - 10.4 FL) 10.7 H Gran % (42.2 - 75.2 %) 54.3 Lymphocytes % (20.5 - 51.1 %) 28.3 Monocytes % (1.7 - 9.3 %) 10.1 H Eosinophils % (0 - 5 %) 6.6 H Basophils % (0.0 - 2.0 %) 0.7 Absolute Granulocytes (1.4 - 6.5 /CUMM) 3.2 Absolute Lymphocytes (1.2 - 3.4 /CUMM) 1.7 Absolute Monocytes (0.10 - 0.60 /CUMM) 0.6 Absolute Eosinophils (0.0 - 0.7 /CUMM) 0.4 Absolute Basophils (0.0 - 0.2 /CUMM) 0 Serology Hepatitis A IgM Ab (NONREACTIVE) NONREACTIVE Hep Bs Antigen (NONREACTIVE) NONREACTIVE Hep B Core IgM Ab Conf (NONREACTIVE) NONREACTIVE Hepatitis C Antibody (NONREACTIVE) NONREACTIVE A/P; 77 y/o wity pmh sig for hzz-bljzhms-jborzhiub diabetes, hypertension, cecal polyp status post right colectomy, BPH, alcoholic liver cirrhosis, remote history of alcohol abuse 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 Continue current treatment for CAP. Patient was started on Rifaximine per GI recommendations. He completed Mucomyst/acetylcysteine protocol per GI recommendations. Continue the rest of the management. Patient will be evaluated by physical therapy. DVT px; ALPS. Discharge tomorrow as patient did not have arrangement for transporting home today.
[2017-09-22] MEDS ORDERED: KEFLEX500 M1 PO (11:32)
[2017-09-22] MEDS ORDERED: XIFAXAN550 M1 PO (11:37)
[2017-09-22 14:46] VITALS: BP 142/70
--- NOTE | 2017-09-22 16:26 | PN- Gastroenterology ---
Assessment/Plan GI Assessment/Recommendations: 77 y/o male, HTN, DM, EtOH cirrhosis, thrombocytopenia, post ventral hernia repair, BPH, B/L TKR, YANG-> CPAP, ex-smoker, post right hemicolectomy, AP, & 4 cm of TI 03/16/11: benign cecal TA. 07/31/17: EGD/colonoscopy to zoe-TI, per Dr. 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 *The patient was then put on Nadolol 20 g daily for variceal prophylaxis & Omeprazole 20 mg daily. The patient reportedly has chronic diarrhea, which may be from his right hemicolectomy, with interruption of the enterohepatic reuptake of bile salts. He had been on Clindamycin in 03/2017. He reportedly stopped EtOH in 03/2017. The patient was admitted to [facility] 09/18/17, with 5 days of generalized weakness, lethargy, & fevers, with cough productive of whitish sputum. On admission, he had low-grade fever (T- 100), f/b T 102.7, with O2 sat RA 94%. Please note, 09/13/17: Complete abdominal sono (per Dr. Boone RN UROLOGY)- small volume ascites ( probably too small to tap), diffuse wall thickening of the gallbladder probably secondary to ascites, multiple gallstones, enlarged spleen with multiple small echogenic mass is of uncertain etiology, possible hemangiomas. 09/17/17: CXR per PMD- NAD. Imaging studies on 09/18/17: admission were suggestive of a community-acquired pneumonia & bronchitis. *09/18/17: CXR- Thickening of the central bronchial interstitium which could be due to airways inflammation from viral/atypical infection. Pulmonary interstitial edema and venous congestion also possible.09/18/17:*CTA chest- no evidence of PE, with chronic precarinal and subcarinal adenopathy, persistent nodularity in the RUL & patchy areas of opacification in right upper lung zone laterally in the right base. No significant infiltrate or effusion in left lung. Mild ascites & probable splenomegaly. 09/18/17: EKG: NSR with no acute ST-T wave changes. *The patient was empirically put on Ceftriaxone & Azithromycin. He was felt not to have any tappable ascites. He was seen in covering GI consultation by Dr. Phan 09/19/17. Lactulose was added in addition to antibiotics. Pulmonary consultation was advised. The patient's primary problem was felt to be due to his probable pneumonia, rather than PSE/cirrhosis. (*The patient's GI care was assumed by myself 09/20/17. Please refer to Dr. Phan's covering GI consultation of 09/19/17. The patient is normally followed for GI by Dr. Boone. *Extensive records reviewed). 04/24/17: *ROSE + > 1:2560 homogeneous, per Dr. Curtis. 06/04/17: nl A1AT 182 (83-199), elevated 5'NTD 42 (0-10), + anti-smooth muscle Ab 25, AMA < 20, Fe 125, TIBC 288, Fe sat 43.4%, ferritin 220. 08/21/17: nl AFP 2.3 *Multiple cultures negative to date, including UC, Strep Pneumo urinary Ag, & Legionella urinary Ag. 09/19/17: 1 of 2 BC: GPC in clusters- Staph Epi ( contaminant). 09/18/17: Rapid viral influenza A/B- neg. 09/19/17: stool C.difficile- neg. 09/18/17: WBC 6.8, H/H 15.5/45.6, MCV 93.7, RDW 15.3, PLT 48, *elevated d-dimer 2311, PT 17.9, INR 1.63, PTT 39, glucose 127, BUN/Cr 22/1.2, GFR 59, Na 138. K 4.4, HCO3 26, AG 12, *lactate 2.6, Ca 9.6, albumin 3.4, globulin 5.2, TBil 2.6, alk phos 354, AST 153, ALT 107, [Tylenol] < 10, troponin < 0.01, elevated BNP 739. 09/19/17: WBC 7.1, H/H 14.2/44.4, MCV 93.5, RDW 15.7, PLT 47, BUN/Cr 24/1.2, GFR 59, Na 140, K 4.2, HCO3 21, AG 14, albumin 2.7, TBil 2.6/DBil 1.5, alk phos 292, AST 118, ALT 93 09/20/17: WBC 6.6 (56S/14B/20L/6M/4E), H/H 15.3/45.2, MCV 95.2, RDW 16, PLT 50, BUN/Cr 40/1.6, *GFR 42, Na 142, K 4.4, HCO3 22, AG 12. *As of 09/20/17, the patient was hemodynamically stable with O2 sat RA 93%, T 97.9 with Tm 101.4. He had a mild cough productive of whitish sputum. He denied any symptoms of UTI. He admitted to intermittent low-grade fevers, without any chills. He denied any chest pain or shortness of breath. He had no pleuritic pain or hemoptysis. His mentation has improved. He was A & Ox3. He denied any abdominal pain. He denied any pruritus, dark urine, or light stools. *His decreased GFR was noted. There was no overt GI bleeding, melena, or hematemesis. He denied any confusion, increased abdominal girth, or peripheral edema. *The patient had received 2 doses of Ibuprofen. *Additionally, he may have been getting dehydrated from his Lactulose. *Both of these may have contributed to his drop in GFR, along with the IV contrast received at the 09/18/17: CTA chest. *HRS less likely, but possible. *The patient was also on HCTZ 12.5 mg daily & Losartan. *I agree that his major issue was PNA, superimposed on cirrhosis. He claimed he last drank EtOH in 03/2017. 09/20/17: US-LIMITED ABDOMEN- No significant change since prior study dated 09/13/2017- cirrhotic liver, no HCC, GB wall thickening due to ascites, known gallstones with negative Rodriguez sign, nl CBD 4 mm, nl right kidney, very small amt fluid around liver. 09/20/17: CT ABD & PELVIS W/ ORAL CONTRAST- 1. Small volume ascites is noted. 2. Moderate splenomegaly. 3. Mildly enlarged prostate. No hydronephrosis. Left renal cyst. 4. No CT evidence of any acute intra-abdominal and/or intrapelvic pathology. Specifically, no CT evidence of acute diverticulitis. I reviewed the 09/20/[address] Tafoya, of [facility] on 09/21/17. The amount of ascites is scant. It is near the diaphragm & the GB, & as the patient is improving on antibiotics for PNA, the risk:benefit ratio does not warrant needling the ascites for the low chance of SBP. 09/20/17: Henrry 76, FENa 1.1 (*both elevated, going against HRS-> ? ATN). 09/21/17: WBC 6.9, H/H 14.9/44.3, MCV 94.2, RDW 16.2, PLT 65, PT 19.7, INR 1.80, *BUN/Cr 31/1.3, *GFR 54, Na 141, K 3.8, HCO3 22, AG 13. As of 09/21/17, the patient's GFR was improving on current therapy. HCTZ was held, Mucomyst was rxd post IV contrast (finished), NSAIDs were D/C'd, Lactulose was switched to Rifaximin 550 mg po BID, & SPA 25g IVPB Q8h was rxd. The patient remained on Azithromycin & Ceftriaxone. He was hemodynamically stable & afebrile (BP 130/68, P 65, R 20, T 98.3, with O2 sat RA 93%. He was no longer having low grade fevers. The coag negative Staph in 09/19/17: 1 of 2 BC was a contaminant, consistent with Staph Epi. The patient had no new complaints. He denied any chest pain or shortness of breath. His cough was improved. He denied any abdominal pain, confusion, fevers, chills, sx UTI, increasing abdominal girth, edema, or worsening jaundice. There was no overt GI bleeding or melena. 09/22/17: WBC 5.9 (w/o left shift), H/H 14.8/43.3, PLT 60 (cirrhotic), BUN/Cr 25 /1.1, *GFR > 60, Na 143, K 3.7, HCO3 22, AG 14; *Hep A Ab, Hep Bs Ag, Hep B core Ab, Hep C Ab- all negative. *As of 09/22/17, patient remained hemodynamically stable and afebrile, with O2 sat RA 93%. Medical notes were appreciated. His GFR had normalized. He remained on Azithromycin & Ceftriaxone for his community-acquired pneumonia. The patient remained A & O x 3. He had ambulated in his room with assistance. He denied any new complaints. *SUGGEST: *No NSAIDs! *Patient completed trial of IV Mucomyst, post IV contrast. * Lactulose on hold. *Continue Rifaximin 550 mg po BID for possible PSE. *Continue to hold HCTZ. Carefully continue Losartan for now. May continue Nadolol 20 mg daily for variceal prophylaxis. *Continue to hold Omeprazole 20 mg daily for now (PPI can cause allergic interstitial nephritis). As GFR now normal, may D/C empiric SPA 25g IV Q8h. *Close follow-up of CBC, BUN/Cr, GFR, lytes, LFTs, INR. Follow-up cultures. *On Azithromycin & Ceftriaxone, per medicine (*will defer to medical team regarding transition to po antibiotics for community acquired PNA). TRC. Consider pulmonary input. *If confusion recurs, check NH3 level. 2g Na+ DM diet. DVT prophylaxis. Mobilize patient with assistance. *Consideration for outpt PET/CT, regarding nonspecific mediastinal nodes & splenic lesions (d/w pt) . *Consideration for outpt liver bx as platelet count allows (50K), regarding + ROSE > 1:2560 (rule out superimposed AIH; d/w pt-> *severe fibrosis on 06/04/17: Fibrotest, with fibrosis score 0.94, per Dr. Boone). The above was previously discussed with the medical house staff. *Hopeful D/C soon, per medical team. *I will sign off from an inpt GI perspective. *The pt was told to follow-up with Dr. Curtis for primary care & his usual GI MD, Dr. Boone, after D/C. Problem List: 1. Liver cirrhosis 2. Change in mental status 3. Pneumonia 4. Renal insufficiency 5. Malnutrition 6. Thrombocytopenia 7. Coagulopathy 8. Elevated LFTs 9. Ascites 10. History of colon polyps 11. Esophageal varices Subjective Subjective: 09/22/17: WBC 5.9 (w/o left shift), H/H 14.8/43.3, PLT 60 (cirrhotic), BUN/Cr 25 /1.1, *GFR > 60, Na 143, K 3.7, HCO3 22, AG 14; *Hep A Ab, Hep Bs Ag, Hep B core Ab, Hep C Ab- all negative. *As of 09/22/17, patient remained hemodynamically stable and afebrile, with O2 sat RA 93%. Medical notes were appreciated. *His GFR had normalized. He remained on Azithromycin & Ceftriaxone for his community-acquired pneumonia. The patient remained A & O x 3. He had ambulated in his room with assistance. He denied any new complaints. Review of Systems: Full 14 point ROS otherwise noncontributory, and as above. Constitutional: Reports: fever-> resolved; weakness-> improving. EENTM: Reports: no symptoms. Cardiovascular: Reports: no symptoms. Respiratory: Reports: mild cough-> improved. GI: Reports: diarrhea-> better (*Lactulose held for decreased GFR). Genitourinary: Reports: no symptoms (*GFR now normal). Musculoskeletal: Reports: no symptoms. Skin: Reports: no symptoms. Neurological/Psychological: Reports: no symptoms; no longer confused. Hematologic/Endocrine: Reports: no symptoms. Objective Vital Signs and I&Os Vital Signs Date Time Temp Pulse Resp B/P B/P Pulse O2 O2 Flow FiO2 Mean Ox Delivery Rate 09/22 1446 98.5 70 20 142/70 93 Room Air 09/22 0829 78 122/78 09/22 0701 98.8 69 20 143/82 94 Room Air 09/21 2351 98.9 75 18 143/73 92 Room Air Intake & Output 09/22 1600 09/22 0400 09/21 1600 09/21 0400 09/20 1600 09/20 0400 Intake Total 2180 1417.5 2200 1750 750 Output Total 9944 430 2816 1200 490 Balance 1130 1067.5 725 550 260 Intake, IV 900 437.5 1100 1150 300 Intake, Oral 5643 693 9921 600 450 Number 2 1 3 3 2 2 Bowel Movements Output, Urine 4971 086 9682 1200 490 Patient 204 lb 192 lb 195 lb Weight Weight Bed scale Bed scale Bed scale Measurement Method Physical Exam: Well-developed, slightly malnourished, obese male, in no apparent distress. Sclera minimally icteric. Conjunctiva pink. Oropharynx clear. No oral thrush. No aphthous ulcers. Slightly dry mucus membranes. There is no adenopathy, thyromegaly, or JVD. No peripheral stigmata of inflammatory bowel disease on exam. Scant + spiders on the anterior chest wall. No gynecomastia. No CVA tenderness. No spine tenderness. Lungs: clear to A&P, except for scant bibasilar rhonchi. No wheezing or rales. No egophony. Heart exam: regular rate rhythm, S1 and S2, without significant murmur. Abdominal exam: normal bowel sounds, soft, obese belly, nontender without guarding or rebound. No definite mass, except for perhaps a tiny reducible umbilical hernia. Liver approximately 14 cm by percussion. Negative Rodriguez sign. Borderline palpable spleen tip. No definite fluid shift. No pulsatile mass. No epigastric bruit. Digital rectal exam: deferred at present. Extremities: without C, C, or E. B/L TKR. Moderate DJD. No palpable cords. No palmar erythema. No Dupuytren's contractures. Distal pulses 2+ bilaterally. DTRs 2+ bilaterally. Currently, alert and oriented x 3. Brief neurologic exam: nonfocal, although a detailed exam for peripheral neuropathy was deferred. Motor: 5/5 B/L. No tremor. No asterixis. Current Medications: Current Medications Sig/Dimple Start time Last Medication Dose Route Stop Time Status Admin Acetylcysteine 8,708.973 MG ONCE ONE 09/21 193 DC Dextrose/Water 1,000 ML IV 09/22 1213 Albumin Human 25 GM Q8 09/20 1717 AC 09/22 IV 1454 Azithromycin 500 MG Q24H 09/19 2029 AC 09/21 Dextrose/Water 250 ML IV 222 Ceftriaxone Sodium 1,000 MG Q24H 09/19 2029 AC 09/21 IV 2229 Dextrose/Sodium 1,000 ML Q13H 09/20 0930 DC 09/22 Chloride IV 0439 Docusate Sodium 100 MG BID 09/19 1000 AC 09/20 PO 2218 Insulin Aspart 0 TIDAC 09/21 0800 AC 09/22 SC 1228 Losartan Potassium 50 MG DAILY 09/19 1000 AC 09/22 PO 0829 Nadolol 20 MG DAILY 09/19 1000 AC 09/22 PO 0829 Polyethylene Glycol 17 GM DAILY 09/19 1000 AC 09/19 PO 1034 Rifaximin 550 MG BID 09/20 2200 AC 09/22 PO 0829 Tamsulosin HCl 0.4 MG DAILY 09/19 1000 AC 09/22 PO 0829 Results Pertinent Lab Results: Laboratory Tests 09/22 09/21 0615 1039 Chemistry Sodium (137 - 145 mmol/L) 143 141 Potassium (3.5 - 5.1 mmol/L) 3.7 3.8 Chloride (98 - 107 mmol/L) 107 106 Carbon Dioxide (22 - 30 mmol/L) 22 22 Anion Gap (5 - 16) 14 13 BUN (9 - 20 mg/dL) 25 H 31 H Creatinine (0.7 - 1.2 mg/dL) 1.1 1.3 H Estimated GFR (>60 ml/min) > 60 54 L BUN/Creatinine Ratio (7 - 25 %) 22.7 23.8 Coagulation PT (9.4 - 12.5 SEC) 19.7 H INR (0.90 - 1.17) 1.80 H Hematology CBC w Diff NO MAN DIFF REQ NO MAN DIFF REQ WBC (4.8 - 10.8 /CUMM) 5.9 6.9 RBC (4.70 - 6.10 /CUMM) 4.59 L 4.70 Hgb (14.0 - 18.0 G/DL) 14.8 14.9 Hct (42 - 52 %) 43.3 44.3 MCV (80.0 - 94.0 FL) 94.4 H 94.2 H MCH (27.0 - 31.0 PG) 32.2 H 31.6 H MCHC (33.0 - 37.0 G/DL) 34.1 33.6 RDW (11.5 - 14.5 %) 16.0 H 16.2 H Plt Count (130 - 400 /CUMM) 60 L 65 L MPV (7.4 - 10.4 FL) 10.7 H 10.9 H Gran % (42.2 - 75.2 %) 54.3 50.7 Lymphocytes % (20.5 - 51.1 %) 28.3 32.4 Monocytes % (1.7 - 9.3 %) 10.1 H 10.6 H Eosinophils % (0 - 5 %) 6.6 H 5.7 H Basophils % (0.0 - 2.0 %) 0.7 0.6 Absolute Granulocytes (1.4 - 6.5 /CUMM) 3.2 3.5 Absolute Lymphocytes (1.2 - 3.4 /CUMM) 1.7 2.2 Absolute Monocytes (0.10 - 0.60 /CUMM) 0.6 0.7 H Absolute Eosinophils (0.0 - 0.7 /CUMM) 0.4 0.4 Absolute Basophils (0.0 - 0.2 /CUMM) 0 0 Serology Hepatitis A IgM Ab (NONREACTIVE) NONREACTIVE Hep Bs Antigen (NONREACTIVE) NONREACTIVE Hep B Core IgM Ab Conf (NONREACTIVE) NONREACTIVE Hepatitis C Antibody (NONREACTIVE) NONREACTIVE 09/20 09/20 1838 1838 Urines Urine Color (YEL,AMB,STR) YEL Urine Clarity (CLEAR) CLEAR Urine pH (5.0 - 8.0) 6.0 Ur Specific [place] (1.001 - 1.035) 1.020 Urine Protein (NEG,<30 MG/DL) NEG Urine Ketones (NEG) NEG Urine Nitrite (NEG) NEG Urine Bilirubin (NEG) NEG Urine Urobilinogen (0.1 - 1.0 EU/dl) 0.2 Ur Leukocyte Esterase (NEG) NEG Ur Microscopic SEDIMENT EXAMINED Urine RBC (0 - 5 /HPF) RARE Urine WBC (0 - 2 /HPF) RARE Ur Epithelial Cells (NONE,FEW) RARE Urine Mucus (FEW,NONE) RARE Urine Hemoglobin (NEG) TRACE-INTACT H Ur Random Creatinine (mg/dL) 74.9 Ur Random Sodium (30 - 90 mmol/L) 76 Ur Random Potassium (mmol/L) 24.3 Fraction Sodium Excret (<1% %) 1.1 H Urine Glucose (N MG/DL) NEG 09/20 0647 Chemistry Sodium (137 - 145 mmol/L) 142 Potassium (3.5 - 5.1 mmol/L) 4.4 Chloride (98 - 107 mmol/L) 108 H Carbon Dioxide (22 - 30 mmol/L) 22 Anion Gap (5 - 16) 12 BUN (9 - 20 mg/dL) 40 H Creatinine (0.7 - 1.2 mg/dL) 1.6 H Estimated GFR (>60 ml/min) 42 L BUN/Creatinine Ratio (7 - 25 %) 25.0 Hematology CBC w Diff MAN DIFF ORDERED WBC (4.8 - 10.8 /CUMM) 6.6 RBC (4.70 - 6.10 /CUMM) 4.75 Hgb (14.0 - 18.0 G/DL) 15.3 Hct (42 - 52 %) 45.2 MCV (80.0 - 94.0 FL) 95.2 H MCH (27.0 - 31.0 PG) 32.1 H MCHC (33.0 - 37.0 G/DL) 33.7 RDW (11.5 - 14.5 %) 16.0 H Plt Count (130 - 400 /CUMM) 50 L MPV (7.4 - 10.4 FL) 10.6 H Gran % (42.2 - 75.2 %) 67.2 Lymphocytes % (20.5 - 51.1 %) 23.4 Monocytes % (1.7 - 9.3 %) 7.7 Eosinophils % (0 - 5 %) 1.4 Basophils % (0.0 - 2.0 %) 0.3 Absolute Granulocytes (1.4 - 6.5 /CUMM) 4.4 Segmented Neutrophils (42.2 - 75.2 %) 56 Band Neutrophils (0.0 - 5.0 %) 14 H Absolute Lymphocytes (1.2 - 3.4 /CUMM) 1.5 Lymphocytes (20.5 - 51.1 %) 20 L Monocytes (1.7 - 9.3 %) 6 Absolute Monocytes (0.10 - 0.60 /CUMM) 0.5 Eosinophils (0 - 5.0 %) 4 Absolute Eosinophils (0.0 - 0.7 /CUMM) 0.1 Absolute Basophils (0.0 - 0.2 /CUMM) 0 Platelet Estimate (ADEQUATE) DECREASED Normocytic RBCs VERIFIED Normochromic RBCs VERIFIED Imaging/Other Studies: 09/13/17: Complete abdominal sono (per Dr. Paolo MOORE)- small volume ascites ( probably too small to tap), diffuse wall thickening of the gallbladder probably secondary to ascites, multiple gallstones, enlarged spleen with multiple small echogenic mass is of uncertain etiology, possible hemangiomas. 09/17/17: CXR per PMD- NAD. 09/18/17: *Admission CXR- Thickening of the central bronchial interstitium which could be due to airways inflammation from viral/atypical infection. Pulmonary interstitial edema and venous congestion also possible. 09/18/17:*CTA chest- no evidence of PE, with chronic precarinal and subcarinal adenopathy, persistent nodularity in the RUL & patchy areas of opacification in right upper lung zone laterally in the right base. No significant infiltrate or effusion in left lung. Mild ascites & probable splenomegaly. 09/18/17: EKG: NSR with no acute ST-T wave changes. 09/20/17: US-LIMITED ABDOMEN- No significant change since prior study dated 09/13/2017- cirrhotic liver, no HCC, GB wall thickening due to ascites, known gallstones with negative Rodriguez sign, nl CBD 4 mm, nl right kidney, very small amt fluid around liver. 09/20/17: CT ABD & PELVIS W/ ORAL CONTRAST- 1. Small volume ascites is noted. 2. Moderate splenomegaly. 3. Mildly enlarged prostate. No hydronephrosis. Left renal cyst. 4. No CT evidence of any acute intra-abdominal and/or intrapelvic pathology. Specifically, no CT evidence of acute diverticulitis. I reviewed the 09/20/[address] Tafoya, of [facility] on 09/21/17. The amount of ascites is scant. It is near the diaphragm & the GB, & as the patient is improving on antibiotics for PNA, the risk:benefit ratio does not warrant needling the ascites for the low chance of SBP.
[2017-09-22 21:34] VITALS: BP 124/78
[2017-09-23 06:23] VITALS: BP 138/72
--- NOTE | 2017-09-23 07:35 | PN- Housestaff ---
Stewart KENT,Penelope 09/23/17 0735: Subjective Follow-up For: Community-acquired pneumonia, diarrhea Complaints: no complaints Subjective: Patient seen and examined at bedside. No overnight events. He complains of watery stool about 5-6 yesterday. He denies nausea, vomiting, abdominal pain, cough, fever. Review of Systems Constitutional: Reports: see HPI. Objective Last 24 Hrs of Vital Signs/I&O Vital Signs Date Time Temp Pulse Resp B/P B/P Pulse O2 O2 Flow FiO2 Mean Ox Delivery Rate 09/23 1056 67 120/66 09/23 1056 67 120/66 09/23 1053 67 120/66 09/23 0800 94 Room Air 09/23 0623 97.3 70 20 138/72 93 Room Air 09/22 2134 99.0 71 20 124/78 92 Room Air 09/22 1446 98.5 70 20 142/70 93 Room Air Intake & Output 09/23 1600 09/23 0800 09/23 0000 Intake Total 380 Output Total 1 150 251 Balance -1 -150 129 Intake, IV 380 Number 1 0 Bowel Movements Output, Stool 1 1 Output, Urine 150 250 Physical Exam General Appearance: Alert, Oriented X3, Cooperative, No Acute Distress Cardiovascular: Regular Rate, Normal S1, Normal S2, No Murmurs Lungs: Clear to Auscultation, Normal Air Movement Abdomen: Soft, No Tenderness, No Hepatospenomegaly Neurological: Normal Speech, Strength at 5/5 X4 Ext, Normal Tone, Sensation Intact Extremities: No Edema Current Medications: Current Medications Sig/Dimple Start time Last Medication Dose Route Stop Time Status Admin Albumin Human 25 GM Q8 09/20 1717 DC 09/23 IV 0526 Azithromycin 500 MG Q24H 09/19 2029 AC 09/22 Dextrose/Water 250 ML IV 210 Ceftriaxone Sodium 1,000 MG Q24H 09/19 2029 AC 09/22 IV 210 Docusate Sodium 100 MG BID 09/19 1000 AC 09/23 PO 1052 Insulin Aspart 0 TIDAC 09/21 0800 AC 09/22 SC 1654 Lactobacillus 1 CAP BID 09/23 1000 AC 09/23 Acidophilus PO 1117 Loperamide HCl 2 MG Q6P PRN 09/23 0930 AC 09/23 PO 1118 Losartan Potassium 50 MG DAILY 09/19 1000 AC 09/23 PO 1056 Nadolol 20 MG DAILY 09/19 1000 AC 09/23 PO 1056 Polyethylene Glycol 17 GM DAILY 09/19 1000 AC 09/23 PO 1052 Rifaximin 550 MG BID 09/20 2200 AC 09/23 PO 1053 Tamsulosin HCl 0.4 MG DAILY 09/19 1000 AC 09/23 PO 1053 Last 24 Hrs of Lab/Sonu Results Last 24 Hrs of Labs/Mics: Laboratory Tests 09/23/17 0738: Anion Gap 11, Estimated GFR > 60, BUN/Creatinine Ratio 20.0, CBC w Diff NO MAN DIFF REQ, RBC 4.40 L, MCV 94.2 H, MCH 32.1 H, MCHC 34.0, RDW 15.9 H, MPV 10.4, Gran % 66.8, Lymphocytes % 20.0 L, Monocytes % 8.7, Eosinophils % 4.2, Basophils % 0.3, Absolute Granulocytes 4.3, Absolute Lymphocytes 1.3, Absolute Monocytes 0.6, Absolute Eosinophils 0.3, Absolute Basophils 0 Microbiology 09/23 0850 STOOL: Clostridium difficile Toxin A & B - COLB Assessment/Plan Assessment: Patient is 77-year-old male with past medical history significant for [id number] diabetes, hypertension, cecal polyp status post right colectomy, BPH, alcoholic liver cirrhosis, remote history of alcohol abuse 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 Assessment and plan 1. Community-acquired pneumonia-patient has right upper lobe pneumonia treated with IV ceftriaxone and azithromycin. We will change IV antibiotics to by mouth. Start cefuroxime 500 mg every 12. Will continue TRC nebulization. Continue cough syrup. On CAT scan patient has central lymphadenopathy. Malignancy needs to be ruled out. Seen by pulmonology who suggested outpatient PET scan. His pneumonia can be postobstructive too. 2. Hepatic encephalopathy-upon admission patient was confused. This can be secondary due to pneumonia/alcoholic liver disease. Patient mentation improved he is alert awake and conscious 3. 3. Patient had 7 bowel movements yesterday,Which was watery. His stool appears more dark. We will add lactobacillus and loperamide. His diarrhea can be secondary due to antibiotic use and in CD4 sent. Will continue monitoring. Lactulose was held in view of diarrhea. Rifaximin was started by GI and we will continue the same. 4. Patient had an ultrasound right upper quadrant and CT abdomen and pelvis- negative for cholelithiasis/diverticulitis. 5. Avoid NSAID, lactulose, hydrochlorothiazide, omeprazole Code-full code Diet-diabetic diet Physical therapy worked with him who suggested home physical therapy. Plan-if patient has decreased bowel movements tomorrow, he is a possible discharge to home. Problem List: 1. Change in mental status 2. Diabetes 3. Pneumonia Pain Ratin Pain Location: none Pain Goal: Remain pain free Pain Plan: tylenol Tomorrow's Labs & Rationales: cbc,bep Josef Morocho 09/23/17 1235: Attending MD Review Statement Attending Statement Attending MD Statement: examined this patient, discuss w/resident/PA/GLASSWARE VERIFIER, agreed w/resident/PA/GLASSWARE VERIFIER, discussed with family, reviewed EMR data (avail), discussed with nursing, discussed with case mgmt, reviewed images, amended to note Attending Assessment/Plan: 77 o/m with pmh of liver cirrhosis admitted with fever and cough with shortness of breath on exertion. CTA reveals Focal airspace disease in the right upper lobe and right base suggestive of edema and infiltrate with lymphadenopathy. C/o diarrhea watery stools, RUQ USG negative, CT abd/pelvis with no evidence of acute pathology. Patient admitted with impression of possible community acquired pneumonia started on ceftriaxone and azithromycin. Change to PO abx. Panculture including c diff f/u remains negative. GI consulted which is suggestive of compensated liver disease. Add antidiarhreal agents (loose stools 6-7). Pulmonary reviewed images and f/u o/p for repeat imaging to see resolution of infiltrates. Monitor hemodyamics and labs. PT recommend home PT. gi/dvt prophyalxis Plan of care d/wed patient daughter bedside.
--- NOTE | 2017-09-23 08:48 | Discharge Summary ---
Visit Information Visit Dates Admission Date: 09/18/17 Discharge Date: 10/03/17 Hospital Course Course Attending Physician: Nae Kothari MD Primary Care Physician: Maxi Curtis MD Hospital Course: The patient is a 77-year-old gentleman, ex smoker with a past medical history of hypertension, diabetes, alcoholic liver cirrhosis, ventral hernia status post- repair, cecal polyp status post right almas colectomy, chronic diarrhea secondary after right hemicolectomy, BPH, basal cell carcinoma behind right ear s/p excision, obstructive sleep apnea on CPAP, diastolic congestive heart failure, thrombocytopenia and bilateral knee replacement came to ED with chief complaint of generalized weakness and fever for of 4-5 days duration. Patient reported that he was in his usual state of health about 5 days prior to admission when he suddenly started to notice generalized weakness and fever particularly during the night-time associated with nighttime sweating. He also admitted to loose bowel movements going on for last 2-3 months. He called his electronic commerce specialist Dr. Boone who advised him to go to ED for further evaluation. On the day of admission he also developed a cough productive of whitish sputum, but denied chest pain, shortness of breath, palpitation, dizziness, headache, nausea, vomiting, abdominal pain, constipation, loss of consciousness, cough with sputum production sick contact, change in appetite and dysuria. 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 He used to drink 12 drinks every day usually vodka and wine. He is living with his and she is taking care of his medications. Patient also reported having orange colored urine for last couple of months. Last colonoscopy was done in July 2017 that showed transverse colon polyps and polypectomy was done. For chronic diarrhea patient was given Imodium and instructed to follow pathology report as outpatient. Endoscopy was done on same day that showed grade 2-3 esophageal varices without bleeding and moderate portal hypertensive gastropathy. Erosive gastritis and biopsies were taken and instructed to follow outpatient pathology results. Last echocardiogram was done in 2013 that showing ejection fraction more than 60 % with stage I diastolic dysfunction. ED course: Vitals on admission: Temperature 99.5 F, pulse 79/min, respiratory rate 18, blood pressure 161/77, oxygen saturation 95 % on room air. Labs on admission: WBC count 6.8, hemoglobin 15.5, hematocrit 45.6, platelet count 48, sodium 138, potassium 4.4, BUN 22, creatinine 1.2, anion gap 12, BUN/ creatinine ratio 18.3, glucose 127, lactic acid 2.6, calcium 9.6, total bilirubin 2.6, AST 153, ALT 107, it was rated 354, troponin less than 0.01, proBNP 739, albumin 3.4, globulin 5.0, albumin/globulin ratio 0.7. Patient received 2 boluses of normal saline in ED because of elevated lactic acid. Hospital course: 1. Community-acquired pneumonia-resolved/fever of unknown origin-probably drug fever * Patient's initial chest x-ray was suspicious for right upper lobe pneumonia and was treated with IV ceftriaxone and azithromycin For 5 days. His antibiotics were switched to by mouth cefuroxime but on hospital day 6 developed high-grade fever to 102.8 and diarrhea. Repeat chest x-ray did show a left lung base opacity. Blood, and urine cultures were negative. Sputum cultures only grew yeast. Ultrasound abdomen/HIDA scan/MRI abdomen did not show any acute lesion suggestive of cholelithiasis or cholangitis. Lyme disease antibody was negative and Lyme Western blot was pending at the time of transfer. He was reviewed by infectious disease networks computer consultant Deondre Gomez MD who suggested that the patient be followed off antibiotics. Drug fever was in the differential as patient had elevated eosinophils to 6.6% at the time of fever. His fever subsequently subsided after antibiotics were discontinued. * A CTA of patient's chest revealed central lymphadenopathy. And patient was reviewed by loaf counter who suggested an outpatient PET scan to evaluate possible malignancy. * During patient's admission he developed some episodes of hypoxia associated with mild pulmonary edema and fluid overload which were managed with intermittent IV Lasix. Patient was placed on by mouth Lasix 20 mg daily and spironolactone 50 mg daily. 2. Hepatic encephalopathy * Upon admission patient was confused. This was thought to be due to hepatic encephalopathy. Patient mentation and alertness was waxing and waning. At most times he was awake, alert and oriented 2, but not to time/date. He was evaluated by gastroenterology was suggested lactulose therapy. He had abdominal paracentesis it was negative for spontaneous bacterial peritonitis. He was also seen by neurology who suggested that his altered mental status could be secondary due to hepatic encephalopathy/hepato-cerebellar degeneration. They advised an EEG which was done but results are pending at the time of transfer. Brain MRI-was negative for any acute lesion but did show chronic microhemorrhages throughout the brain that could be associated with hepatic encephalopathy. His CK, folate, ammonia levels were all normal at admission. His vitamin D levels were low and he was started on supplementation. On account of patient's persistent altered mental status secondary to hepatic encephalopathy as per patient's family request and was transferred to [facility] for further management. * Of note, during the admission the patient had a Doppler ultrasound of his abdomen to rule out portal vein thrombosis [Report suggested decreased portal vein flow]. Patient had a CT abdomen and pelvis with portal venous phase flow which was negative for portal vein thrombosis. We reviewed all the images with the radiologist, and secondary causes of portal hypertension need to be ruled out. 3. Chronic diarrhea * The patient had chronic diarrhea which began after patient had right hemicolectomy done for colonic polyp. While on admission his diarrhea became worse with up to 7 bowel movements per day. However 2 separate samples for C. difficile screening as well as C. difficile PCR both were all negative. Initially the patient's diarrhea was treated with lactobacillus and loperamide and it initially improved. He was restarted on lactulose but his diarrhea reoccured. Patient's lactulose for hepatic encephalopathy treatment was again held prior to transfer on account of persistent diarrhea. Allergies: Coded Allergies: Penicillins (UNKNOWN 11/17/15) Significant Procedures: US-PARACENTESIS PROCEDURE: Ultrasound-guided paracentesis. COMPLICATIONS: None ESTIMATED BLOOD LOSS: <5 mL SPECIMENS: Ascites IMPLANT: None. SITE MARKING: As part of the preprocedure verification policy, a site marking procedure was initiated. Due to the nature the procedure, the insertion site could not be predetermined thus invoking the policy of exemption to site laterality and marking. Insertion site marking was performed in the procedure room in conjunction with imaging confirmation. PROCEDURE NOTE: Informed consent was obtained from the patient's daughter, Clara, prior to the procedure. During this process, the procedure and potential alternatives were explained along with the intended outcome and benefits. The risks of the procedure, including the possibility of an unsuccessful procedure, as well as the risk of not doing the procedure, were discussed. The patient's daughter was given the opportunity to ask questions regarding the procedure and appeared competent to make decisions. A signed consent form documenting this discussion was placed in the medical record. A time-out procedure was performed. Appropriate preprocedure medical history and imaging studies were reviewed. The patient was brought to the ultrasound room and placed in the supine position. A time-out procedure was performed. Ultrasound images of the abdomen were obtained to localize a small collection of ascites. Images were permanently saved to the record. An area of the right lower quadrant was prepped and draped in the standard sterile fashion. All elements of maximal sterile barrier technique followed including use of cap, mask, sterile gown, sterile gloves, a sterile full body drape and hand hygiene. Also followed skin preparation with 2% chlorhexidine for cutaneous antisepsis, and sterile ultrasound preparation with sterile gel and probe cover when applicable. 5 mL of 1% lidocaine was used to obtain local anesthesia of the skin and deeper tissues. Under ultrasound guidance, 22-gauge spinal needle was introduced to sample fluid. There was no evidence of traversing adjacent organs or vascular structures. The needle was removed and sterile dressing applied. The patient tolerated the procedure well without evidence of complications. FINDINGS: Small simple abdominal ascites as detailed above. IMPRESSION: Successful ultrasound-guided diagnostic paracentesis. Paracentesis result Fluid WBC 420 Fluid mesothelial cells 66 Fluid total RBC count at 8000 Fluid glucose 140 Fluids total protein less than 2 Fluid albumin less than 1 Fluid LDH 162 Fluid amylase less than 30 Pertinent Lab Results: Chest x-ray September 18 Thickening of the central bronchial interstitium which could be due to airways inflammation from viral/atypical infection. Pulmonary interstitial edema and venous congestion also possible. CTA September 18 There is some limitation from respiratory motion however given this there is no convincing evidence of a filling defect to represent a pulmonary embolism.If suspicion remains high then consider extremity Dopplers and/or VQ scan. Overall increased interstitial pattern in the lungs. Findings may suggest interstitial edema. In addition some focal airspace disease in the right upper lobe and right base represent edema or areas of infiltrate. Also on this study very prominent central lymphadenopathy. This may be reactive but malignancy would need to be considered. Recommendation is PET/CT to further evaluate in this patient. Ultrasound abdomen September 20 The liver shows diffuse heterogeneous echotexture consistent with clinically known cirrhosis.The gallbladder wall shows circumferential diffuse thickening presence of cholesterol crystal and multiple calculi, similar to prior study. Given the presence of ascites, wall thickening is likely related to surrounding fluid. No Rodriguez's sign noted. CT abdomen and pelvis with oral contrast September 20 1. Small volume ascites is noted. 2. Moderate splenomegaly. 3. Mildly enlarged prostate. 4. No CT evidence of any acute intra-abdominal and/or intrapelvic pathology. Specifically, no CT evidence of acute diverticulitis. Chest x-ray September 23 Bilateral bronchovascular prominence may reflect sequela of small airways inflammation or mild vascular congestion. Small patchy opacity at the peripheral left lung base, consider pneumonia or atelectasis. Ultrasound abdomen September 24 1. No acute intracranial abnormality. 2. Moderate ascites. 3. Gallstones with gallbladder wall thickening and tenderness. Correlate clinically concerning acute cholecystitis. Imaging findings are concordant with this diagnosis but is confounded by the ascites and liver disease. CT head September 24 1. No acute intracranial abnormality. Chest x-ray August 2016 Persistent nonspecific prominent linear interstitial lung markings and few patchy superimposed airspace disease, unchanged since 09/23/2017. No definite focal dense alveolar consolidation or pleural effusion. HIDA scan September 25 Visualization of the gallbladder is evidence of a patent cystic duct and strong evidence against the diagnosis of acute cholecystitis. The common bile duct is patent. There is significant impairment in liver function as evidenced by slow accumulation of activity in the liver and abnormal retention in the liver at 4 hours. Echocardiogram September 25 Normal left and right ventricular systolic function. Mild concentric left ventricular hypertrophy. Moderate Left atrial enlargement. Mild Aortic stenosis. Abdominal MRI in September 25 1. Normal-appearing biliary tract. Specifically, no evidence for biliary obstruction, choledocholithiasis or other remarkable finding. 2. Mild to moderate ascites appears increased from CT scan of 09/20/2017. 3. There are several small cystic structures in the pancreatic tail which can be associated with pancreatitis. The pancreas itself is atrophic with no evidence for ductal dilatation. Abdomen Doppler September 26 Limited evaluation. There is slow hepatopedal flow in the main portal vein. Partial thrombosis cannot be excluded on this study. Further evaluation can be obtained with CT of the abdomen with contrast in the portal venous phase. Chest x-ray September 30 1. Suspect mild pulmonary edema. Clinical correlation requested. 2. Bibasilar subsegmental atelectasis. Chest x-ray October 01 Low lung volumes with persistent coarse interstitial prominence, likely reflecting pulmonary venous hypertension or mild interstitial pulmonary edema. This appears slightly improved from the prior study. Head MRI October 02 No imaging evidence of an acute intracranial process. Chronic microhemorrhages are seen throughout the brain and can been associated with hepatic encephalopathy. Disposition Summary Disposition Principal Diagnosis: 1. Altered mental status secondary to hepatic encephalopathy 2. Community acquired pneumonia 3. Chronic diarrhea 4. Suspected drug fever Additional Diagnosis: 5. Liver cirrhosis Discharge Disposition: other general hospital Discharge Instructions General Discharge Information Code Status: Full Code Patient's Diet: Regular diet Patient's Activity: As tolerated Follow-Up Instructions/Appts: 1. Please follow-up with your primary care provider/electronic commerce specialist/ loaf counter within 1-2 weeks of discharge. 2. Please follow-up with your electronic commerce specialist within 1-2 weeks of discharge. 3. Please follow-up with loaf counter for outpatient PET scan within 1-2 weeks of discharge. 4. Patient's lactulose dose was held prior to transfer on account of persistent diarrhea. Medications at Discharge Discharge Medications: Stop taking the following medications: Valsartan/Hydrochlorothiazide (Valsartan-Hctz 80-12.5 MG Tab) 80 MG-12.5 MG TABLET ORAL DAILY Qty = 90 Continue taking these medications: Tamsulosin HCl (Tamsulosin HCl) 0.4 MG CAP.ER.24H 1 Capsule ORAL DAILY Qty = 90 Metformin HCl (Metformin HCl) 1,000 MG TABLET 1 Tablet ORAL TWICE DAILY Qty = 180 Omeprazole (Omeprazole) 20 MG CAPSULE.DR 1 Capsule ORAL DAILY Qty = 60 Nadolol (Nadolol) 20 MG TABLET 1 Tablet ORAL DAILY Start taking the following new medications: Rifaximin (Xifaxan) 550 MG TABLET 550 Milligram ORAL TWICE DAILY Qty = 60 No Refills Lactulose (Lactulose) 20 GRAM/30 ML SOLUTION 20 Gram ORAL THREE TIMES DAILY Qty = 90 No Refills Spironolactone (Aldactone) 25 MG TABLET 50 Milligram ORAL DAILY Qty = 30 No Refills Furosemide (Furosemide) 20 MG TABLET 20 Milligram ORAL DAILY Qty = 30 No Refills Losartan Potassium (Losartan Potassium) 50 MG TABLET 50 Milligram ORAL DAILY Qty = 30 No Refills Folic Acid (Folic Acid) 1 MG TABLET 1 Milligram ORAL DAILY Qty = 30 No Refills Thiamine HCl (Vitamin B-1) 100 MG TABLET 100 Milligram ORAL DAILY Qty = 30 No Refills Copies To: Ricky KENT,Riccardo Mccormack; Sylvester KENT,Daquan Curtis MD,Maxi Marroquin; Jason KENT, Deondre Regalado
[2017-09-23 09:08] LABS: ABSOLUTE BASOPHIL COUNT 0 /CUMM (0.0-0.2); ABSOLUTE EOSINOPHIL COUNT 0.3 /CUMM (0.0-0.7); ABSOLUTE GRANULOCYTE CT 4.3 /CUMM (1.4-6.5); ABSOLUTE LYMPH COUNT 1.3 /CUMM (1.2-3.4); ABSOLUTE MONOCYTE COUNT 0.6 /CUMM (0.10-0.60); BASOPHIL % 0.3 % (0.0-2.0); EOSINOPHIL % 4.2 % (0-5); GRANULOCYTE % 66.8 % (42.2-75.2); HEMATOCRIT 41.5 % (42-52); MEAN CORPUSCULAR HGB 32.1 PG (27.0-31.0); MEAN CORPUSCULAR VOLUME 94.2 FL (80.0-94.0); MEAN PLATELET VOLUME 10.4 FL (7.4-10.4); RBC DISTRIBUTION WIDTH 15.9 % (11.5-14.5); WHITE BLOOD CELL COUNT 6.4 /CUMM (4.8-10.8)
[2017-09-23 10:11] LABS: PLATELET COUNT 58 /CUMM (130-400)
[2017-09-23 15:28] VITALS: BP 140/63
[2017-09-23 16:30] VITALS: BP 126/52
--- NOTE | 2017-09-23 17:01 | Event Note ---
Event Note Event Note: Patient spiked fever 102, blood pressure 120/76, saturating 96 at room air. On examination Patient appears lethargic, responding to verbal commands. Respiratory system-bilateral faint crackles lower base, CVS-S1-S2, Abdomen-soft. Stat chest x-ray, CBC, BP, lactic acid, blood culture, sputum culture, urine cultures sent. We had a discussion with Deondre Gomez MD over the phone who suspects this is aspiration pneumonia and advised to wait for the culture report prior to starting antibiotics. Attending made aware. 5 PM-saturation 88-90 on room air. Patient still remains lethargic. We will follow up cultures. We will start him on ceftaz and vancomycin to cover for healthcare associated pneumonia. We tried contacting the patient family over the phone, BUT DIDNT ATTEND. Left a voicemail with my cell phone number. We will try calling the family again.
[2017-09-23 17:04] LABS: ABSOLUTE BASOPHIL COUNT 0 /CUMM (0.0-0.2); ABSOLUTE EOSINOPHIL COUNT 0.3 /CUMM (0.0-0.7); ABSOLUTE GRANULOCYTE CT 4.7 /CUMM (1.4-6.5); ABSOLUTE LYMPH COUNT 1.2 /CUMM (1.2-3.4); ABSOLUTE MONOCYTE COUNT 0.6 /CUMM (0.10-0.60); BASOPHIL % 0.4 % (0.0-2.0); EOSINOPHIL % 3.8 % (0-5); GRANULOCYTE % 69.3 % (42.2-75.2); MEAN CORPUSCULAR HGB CONC 33.9 G/DL (33.0-37.0); MEAN CORPUSCULAR VOLUME 94.4 FL (80.0-94.0); MEAN PLATELET VOLUME 10.5 FL (7.4-10.4); PLATELET COUNT 59 /CUMM (130-400); RBC DISTRIBUTION WIDTH 16.3 % (11.5-14.5); RED BLOOD CELL CT 4.77 /CUMM (4.70-6.10); WHITE BLOOD CELL COUNT 6.7 /CUMM (4.8-10.8)
--- NOTE | 2017-09-23 17:40 | RADIOLOGY REPORT ---
EXAMINATION: XR PORTABLE CHEST CLINICAL INFORMATION: Fever. Altered mental status. COMPARISON: Chest radiography 09/18/2017. CT abdomen pelvis 09/20/2017. TECHNIQUE: Portable frontal view of the chest was obtained. FINDINGS: The lungs are well expanded. There is bronchovascular prominence bilaterally. Small patchy opacity at the peripheral left lung base. No pneumothorax or pleural effusion. Mediastinal contours are unchanged. No acute osseous abnormalities. IMPRESSION: Bilateral bronchovascular prominence may reflect sequela of small airways inflammation or mild vascular congestion. Small patchy opacity at the peripheral left lung base, consider pneumonia or atelectasis.
[2017-09-23 22:25] VITALS: BP 110/70
[2017-09-24] VITALS (7 sets, daily range): BP systolic 102–126; BP diastolic 58–78
--- NOTE | 2017-09-24 07:15 | PN- Housestaff ---
Stewart KENT,Penelope 09/24/17 0715: Subjective Follow-up For: Community acquired pneumonia-resolved Chronic diarrhea Possible hospital-acquired pneumonia/aspiration pneumonia Complaints: weakness Subjective: Patient seen and examined at bedside. Patient sitting in his bed appears lethargic. Able to answer were pertinent commands. He is alert, oriented 2. He says he is feeling weak. He denies chills, chest pressure, shortness of breath, abdominal pain, nausea, Review of Systems Constitutional: Reports: see HPI. Objective Last 24 Hrs of Vital Signs/I&O Vital Signs Date Time Temp Pulse Resp B/P B/P Pulse O2 O2 Flow FiO2 Mean Ox Delivery Rate 09/24 1055 102.4 09/24 1038 102.4 09/24 0939 103.3 09/24 0921 103.3 82 22 122/70 94 Nasal 2.0L Cannula 09/24 0910 88 122/70 09/24 0830 93 Nasal 2.0L Cannula 09/24 0825 102.2 09/24 0825 99.1 88 22 122/70 93 Nasal 2.0L Cannula 09/24 0701 97.6 66 18 114/68 93 09/24 0115 98.4 09/24 0000 Nasal 2.0L Cannula 09/23 2225 98.0 53 18 110/70 94 Nasal 2.0L Cannula 09/23 2115 97.7 09/23 1640 104.0 22 92 Nasal 2.0L Cannula 09/23 1630 102.8 80 22 126/52 90 Room Air 09/23 1600 94 Nasal 2.0L Cannula 09/23 1528 98.6 60 20 140/63 93 Room Air Intake & Output 09/24 1600 09/24 0800 09/24 0000 Intake Total 720 565 Output Total 200 Balance 520 565 Intake, IV 600 225 Intake, Oral 120 340 Number 1 Bowel Movements Output, Urine 200 Patient 207 lb Weight Physical Exam General Appearance: Alert, Oriented X3, Cooperative, No Acute Distress Skin: face appearsred compared to rest of the body. Neck: Supple, No JVD, No thryomegaly Cardiovascular: Normal S1, Normal S2, No Murmurs Lungs: decreased breath sounds on the left side. Abdomen: Soft, No Tenderness, No Hepatospenomegaly Neurological: Strength at 5/5 X4 Ext, Normal Tone, Sensation Intact Extremities: No Edema Current Medications: Current Medications Sig/Dimple Start time Last Medication Dose Route Stop Time Status Admin Acetaminophen 650 MG ONCE ONE 09/24 09 DC 09/24 PO 09/24 0931 0939 Azithromycin 500 MG Q24 09/24 1000 CAN PO Azithromycin 500 MG Q24H 09/19 2030 DC 09/22 Dextrose/Water 250 ML IV 2106 Ceftazidime 1,000 MG IQ8 09/23 1700 AC 09/24 IV 0832 Ceftriaxone Sodium 1,000 MG Q24H 09/19 2030 DC 09/22 IV 2106 Cefuroxime Sodium 250 MG Q12 09/23 2200 CAN PO Dextrose/Sodium 1,000 ML Q13H 09/23 1430 AC 09/24 Chloride IV 0908 Docusate Sodium 100 MG BID 09/19 1000 AC 09/23 PO 1052 Ibuprofen 600 MG ONCE ONE 09/23 1900 DC 09/23 PO 09/23 190 1917 Insulin Aspart 0 TIDAC 09/21 0800 AC 09/22 SC 1654 Lactobacillus 1 CAP BID 09/23 1000 AC 09/24 Acidophilus PO 0910 Loperamide HCl 2 MG Q6P PRN 09/23 0930 AC 09/23 PO 1118 Losartan Potassium 50 MG DAILY 09/19 1000 AC 09/24 PO 0911 Nadolol 20 MG DAILY 09/19 1000 AC 09/24 PO 0911 Polyethylene Glycol 17 GM DAILY 09/19 1000 AC 09/23 PO 1052 Rifaximin 550 MG BID 09/20 2200 AC 09/24 PO 0910 Tamsulosin HCl 0.4 MG DAILY 09/19 1000 AC 09/24 PO 0910 Vancomycin HCl 1,000 MG Q24H 09/24 1900 AC Dextrose/Water 250 ML IV Vancomycin HCl 1,000 MG DAILY 09/23 1715 DC 09/23 Dextrose/Water 250 ML IV 1918 Last 24 Hrs of Lab/Sonu Results Last 24 Hrs of Labs/Mics: Laboratory Tests 09/24/17 0810: Anion Gap 14, Estimated GFR > 60, BUN/Creatinine Ratio 24.5 09/24/17 0637: CBC w Diff NO MAN DIFF REQ, RBC 5.03, MCV 95.6 H, MCH 32.1 H, MCHC 33.6, RDW 16.7 H, MPV 10.4, Gran % 80.2 H, Lymphocytes % 10.0 L, Monocytes % 5.0, Eosinophils % 4.5, Basophils % 0.3, Absolute Granulocytes 6.9 H, Absolute Lymphocytes 0.9 L, Absolute Monocytes 0.4, Absolute Eosinophils 0.4, Absolute Basophils 0 09/23/171944: Lactic Acid 1.6 09/23/171944: Anion Gap 11, Estimated GFR > 60, BUN/Creatinine Ratio 19.1 09/23/171839: Urinalysis LIGHT H, Urine Color YEL, Urine Clarity HAZY H, Urine pH 5.5, Ur Specific [place] 1.025, Urine Protein 30 H, Urine Ketones NEG, Urine Nitrite NEG, Urine Bilirubin NEG, Urine Urobilinogen 0.2, Ur Leukocyte Esterase NEG, Ur Microscopic SEDIMENT EXAMINED, Urine RBC 15-25 H, Urine WBC RARE, Ur Epithelial Cells RARE, Hyaline Casts 1-3 H, Urine Mucus MOD H, Urine Hemoglobin LARGE H, Urine Glucose NEG 09/23/17 1719: Lactic Acid 2.1 09/23/171623: CBC w Diff NO MAN DIFF REQ, RBC 4.77, MCV 94.4 H, MCH 32.0 H, MCHC 33.9, RDW 16.3 H, MPV 10.5 H, Gran % 69.3, Lymphocytes % 17.3 L, Monocytes % 9.2, Eosinophils % 3.8, Basophils % 0.4, Absolute Granulocytes 4.7, Absolute Lymphocytes 1.2, Absolute Monocytes 0.6, Absolute Eosinophils 0.3, Absolute Basophils 0 Microbiology 09/24 08 LOWER RESP: Respiratory Culture - CAN Cancelled: DUPLICATE 09/24 08 LOWER RESP: Gram Stain - CAN Cancelled: DUPLICATE 09/24 534 LOWER RESP: Respiratory Culture - RES 09/24 534 LOWER RESP: Gram Stain - RES 09/23 1899 LOWER RESP: Respiratory Culture - CAN Cancelled: NUMBER OF SQUAMOUS CELLS INDICATES POOR QUALITY SPECIMEN 09/23 1899 LOWER RESP: Gram Stain - CAN Cancelled: NUMBER OF SQUAMOUS CELLS INDICATES POOR QUALITY SPECIMEN 09/23 184 URINE ROUT: Urine Culture - RES 09/23 182 UPPER RESP: Surveillance Culture - RECD 09/23 1655 BLOOD: Blood Culture - RECD 09/23 1631 BLOOD: Blood Culture - RECD Assessment/Plan Assessment: Patient is 77-year-old male with past medical history significant for [id number] diabetes, hypertension, cecal polyp status post right colectomy, BPH, alcoholic liver cirrhosis, remote history of alcohol abuse 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 Assessment and plan 1. Community-acquired pneumonia-patient had right upper lobe pneumonia treated with IV ceftriaxone and azithromycin. She was started on cefuroxime yesterday. But by around 4 PM patient started developing fever MAXIMUM TEMPERATURE 104 with chills and appeared more lethargic. Stat chest x-ray blood culture, urine cultures, sputum culture, lactic acid CBC, BEP was done. We will follow cultures and blood work In view of possible aspiration pneumonia patient was started on ceftaz and vancomycin. ID on board. Continue cough syrup. On CAT scan patient has central lymphadenopathy. Malignancy needs to be ruled out. Seen by pulmonology who suggested outpatient PET scan. His pneumonia can be postobstructive too. We will repeat chest x-ray now. 2. Hepatic encephalopathy-upon admission patient was confused. This can be secondary due to pneumonia/alcoholic liver disease. Patient mentation improved he is alert awake and conscious 2. 3. Patient had 3 bowel movements today, Which was watery. lactobacillus and loperamide was started. 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 This admission patient was on antibiotics. His diarrhea can be secondary due to C. difficile. C. difficile report pending. Will continue monitoring. Lactulose was held in view of diarrhea. Rifaximin was started by GI and we will continue the same. 4. Patient had an ultrasound right upper quadrant and CT abdomen and pelvis- negative for cholelithiasis/diverticulitis. 5. Avoid NSAID, lactulose, hydrochlorothiazide, omeprazole Code-full code Diet-diabetic diet Physical therapy worked with him who suggested home physical therapy. Patient Daughter updated over the phone about his current condition at around 9 AM today. They agree with the plan. Patient Daughter to be informed about any updates [phone], AMMONIA, Lyme titer, C. difficile, blood culture, sputum culture, urine culture-pending. Problem List: 1. Ascites 2. Pneumonia 3. Esophageal varices Pain Ratin Pain Location: None Pain Goal: Remain pain free Pain Plan: Tylenol Tomorrow's Labs & Rationales: CBC, BEP Josef Morocho 09/24/17 1118: Attending MD Review Statement Attending Statement Attending MD Statement: examined this patient, discuss w/resident/PA/CONSERVATION OF RES[employer] COMMISSIONER, agreed w/resident/PA/[employer] COMMISSIONER, discussed with family, reviewed EMR data (avail), discussed with nursing, discussed with case mgmt, reviewed images, amended to note Attending Assessment/Plan: 77 o/m with pmh of liver cirrhosis admitted with fever and cough with shortness of breath on exertion. CTA reveals Focal airspace disease in the right upper lobe and right base suggestive of edema and infiltrate with lymphadenopathy. RUQ USG negative, CT abd/pelvis with no evidence of acute pathology. Patient admitted with impression of possible community acquired pneumonia completed abx. ARNALDO resolved. LAST 24 HRS: Fever 103 Tmax, LA 1.6 Diarrhea improved, AAOX 2. NO focal deficit. PE unremarkable except decreased breath sounds on left side. Panculture including c diff f/u remains negative. GI consulted which is suggestive of compensated liver disease. (Had diarrhea with 7-8 loose stools). Fever Consult ID, Empiric antibiotic. SEND repeat panculture. Pulmonary reviewed images and f/u o/p for repeat imaging to see resolution of infiltrates. Monitor hemodyamics and labs. PT recommend home PT. gi/dvt prophyalxis.
[2017-09-24 08:16] LABS: ABSOLUTE BASOPHIL COUNT 0 /CUMM (0.0-0.2); ABSOLUTE EOSINOPHIL COUNT 0.4 /CUMM (0.0-0.7); ABSOLUTE GRANULOCYTE CT 6.9 /CUMM (1.4-6.5); ABSOLUTE LYMPH COUNT 0.9 /CUMM (1.2-3.4); ABSOLUTE MONOCYTE COUNT 0.4 /CUMM (0.10-0.60); BASOPHIL % 0.3 % (0.0-2.0); EOSINOPHIL % 4.5 % (0-5); GRANULOCYTE % 80.2 % (42.2-75.2); HEMATOCRIT 48.1 % (42-52); MEAN CORPUSCULAR HGB 32.1 PG (27.0-31.0); MEAN CORPUSCULAR HGB CONC 33.6 G/DL (33.0-37.0); MEAN CORPUSCULAR VOLUME 95.6 FL (80.0-94.0); MEAN PLATELET VOLUME 10.4 FL (7.4-10.4); PLATELET COUNT 54 /CUMM (130-400); RBC DISTRIBUTION WIDTH 16.7 % (11.5-14.5); RED BLOOD CELL CT 5.03 /CUMM (4.70-6.10); WHITE BLOOD CELL COUNT 8.6 /CUMM (4.8-10.8)
--- NOTE | 2017-09-24 14:30 | RADIOLOGY REPORT ---
EXAMINATION: XR PORTABLE CHEST CLINICAL INFORMATION: Cough, fever. COMPARISON: Chest done on 09/23/2017. TECHNIQUE: Portable frontal view of the chest was obtained. FINDINGS: Mild diffuse prominent linear interstitial lung markings are noted with a few patchy opacities, may represent interstitial lung disease with superimposed groundglass changes. No discrete dense airspace consolidation is present. The cardiomediastinal silhouette is within normal limit. There is no pleural effusion or pneumothorax present. The visualized upper abdomen is unremarkable. IMPRESSION: Persistent nonspecific prominent linear interstitial lung markings and few patchy superimposed airspace disease, unchanged since 09/23/2017. No definite focal dense alveolar consolidation or pleural effusion.
--- NOTE | 2017-09-24 14:36 | Cons- Infect Disease ---
General Information and HPI Consulting Request Date of Consult: 09/24/17 Requested By: Rashawn KENT,Josef Reason for Consult: Unexplained fever Source of Information: patient, family, old records History of Present Illness: This is a 77-year-old man with a history of alcoholic induced cirrhosis, with esophageal varices and thrombocytopenia, hypertension, diabetes, obstructive sleep apnea, maintained on CPAP, BPH, status post bilateral knee knee replacements and chronic diarrhea admitted on September 18 with several days of fevers, weakness and lethargy. On admission he was febrile to 102.7. Laboratory data revealed a white blood cell count of 7000, platelets 48,000, BUN /creatinine 22 and 1.2, lactic acid 2.6, bilirubin 2.6, alk phosphatase 354, AST /ALT 153 and 107, INR 1.63. Urinalysis rare RBCs/rare WBCs. Chest x-ray revealed prominence of the peribronchial vascular interstitium with bronchial wall thickening. CTA of the chest revealed interstitial prominence with some focal airspace disease in the right upper lobe and right base. He was begun on Ceftriaxone and Azithromycin with defervescence. On September 23, however, he spiked a fever to 102.8 without any associated symptoms and was empirically begun on Vancomycin and Ceftazidime. He has remained febrile with a temperature to 103.3 this morning but offers no specific complaints. He denies chest pain, shortness of breath or cough. He does continue to have loose stools but denies any nausea, vomiting or abdominal pain and denies any dysuria. His creatinine increased to 1.6 on September 20 but has normalized. His white blood cell count has remained normal since admission. Allergies/Medications Allergies: Coded Allergies: Penicillins (UNKNOWN 11/17/15) Home Med List: Cephalexin (Keflex) 500 MG CAPSULE 1 CAP PO BID pNEUMONIA Metformin HCl 1,000 MG TABLET 1 TAB PO BID DM (Reported) Nadolol 20 MG TABLET 1 TAB PO DAILY LIVER HEALTH (Reported) Omeprazole 20 MG CAPSULE.DR 1 CAP PO DAILY GI (Reported) Rifaximin (Xifaxan) 550 MG TABLET 550 MG PO BID hepatic encephalopathy Tamsulosin HCl 0.4 MG CAP.ER.24H 1 CAP PO DAILY PROSTATE (Reported) Valsartan/Hydrochlorothiazide (Valsartan-Hctz 80-12.5 MG Tab) 80 MG-12.5 MG TABLET 1 TAB PO DAILY HTN (Reported) Past History Travel History Traveled to [place] past 21 day No Medical History Blood Transfusion Hx: No Neurological: NONE EENT: NONE Cardiovascular: hypertension Respiratory: obstructive sleep apnea Gastrointestinal: esophageal varices, cirrhosis, ventral hernia Hepatic: NONE Renal: NONE Musculoskeletal: NONE Psychiatric: NONE Endocrine: diabetes Blood Disorders: thrombocytopenia Cancer(s): NONE 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 All Other Systems: Reviewed and Negative Exam & Diagnostic Data Last 24 Hrs of Vital Signs/I&O Vital Signs Date Time Temp Pulse Resp B/P B/P Pulse O2 O2 Flow FiO2 Mean Ox Delivery Rate 09/24 1212 100.1 80 22 126/78 94 Nasal 2.0L Cannula 09/24 1055 102.4 09/24 1038 102.4 09/24 0939 103.3 09/24 0921 103.3 82 22 122/70 94 Nasal 2.0L Cannula 09/24 0910 88 122/70 09/24 0830 93 Nasal 2.0L Cannula 09/24 0825 102.2 09/24 0825 99.1 88 22 122/70 93 Nasal 2.0L Cannula 09/24 0701 97.6 66 18 114/68 93 09/24 0115 98.4 09/24 0000 Nasal 2.0L Cannula 09/23 2225 98.0 53 18 110/70 94 Nasal 2.0L Cannula 09/23 2115 97.7 09/23 1640 104.0 22 92 Nasal 2.0L Cannula 09/23 1630 102.8 80 22 126/52 90 Room Air 09/23 1600 94 Nasal 2.0L Cannula 09/23 1528 98.6 60 20 140/63 93 Room Air Intake & Output 09/24 1600 09/24 0800 09/24 0000 Intake Total 1400 720 565 Output Total 650 200 Balance 750 520 565 Intake, IV 600 600 225 Intake, Oral 800 120 340 Number 0 1 Bowel Movements Output, Urine 650 200 Patient 207 lb Weight Physical Exam Other Physical Findings: MAXIMUM TEMPERATURE 103.3. He is awake and alert in no acute distress. Skin reveals a mild macular, nonpruritic rash on his face. HEENT negative. Neck is supple with no adenopathy. Lungs bibasilar crackles. Heart regular rhythm with no murmur. Abdomen is soft, nontender with positive bowel sounds. Back no CVA tenderness. Extremities trace edema both lower extremities. Neuro is without focality. Last 24 Hours of Lab Results: Laboratory Tests 09/24 09/24 09/23 09/23 0810 0637 1945 194 Chemistry Sodium (137 - 145 mmol/L) 145 141 Potassium (3.5 - 5.1 mmol/L) 4.4 4.1 Chloride (98 - 107 mmol/L) 107 105 Carbon Dioxide (22 - 30 mmol/L) 24 25 Anion Gap (5 - 16) 14 11 BUN (9 - 20 mg/dL) 27 H 21 H Creatinine (0.7 - 1.2 mg/dL) 1.1 1.1 Estimated GFR (>60 ml/min) > 60 > 60 BUN/Creatinine Ratio (7 - 25 %) 24.5 19.1 Lactic Acid (0.7 - 2.1 mmol/L) 1.6 Magnesium (1.6 - 2.3 mg/dL) 1.9 Hematology CBC w Diff NO MAN DIFF REQ WBC (4.8 - 10.8 /CUMM) 8.6 RBC (4.70 - 6.10 /CUMM) 5.03 Hgb (14.0 - 18.0 G/DL) 16.2 Hct (42 - 52 %) 48.1 MCV (80.0 - 94.0 FL) 95.6 H MCH (27.0 - 31.0 PG) 32.1 H MCHC (33.0 - 37.0 G/DL) 33.6 RDW (11.5 - 14.5 %) 16.7 H Plt Count (130 - 400 /CUMM) 54 L MPV (7.4 - 10.4 FL) 10.4 Gran % (42.2 - 75.2 %) 80.2 H Lymphocytes % (20.5 - 51.1 %) 10.0 L Monocytes % (1.7 - 9.3 %) 5.0 Eosinophils % (0 - 5 %) 4.5 Basophils % (0.0 - 2.0 %) 0.3 Absolute Granulocytes (1.4 - 6.5 /CUMM) 6.9 H Absolute Lymphocytes (1.2 - 3.4 /CUMM) 0.9 L Absolute Monocytes (0.10 - 0.60 /CUMM) 0.4 Absolute Eosinophils (0.0 - 0.7 /CUMM) 0.4 Absolute Basophils (0.0 - 0.2 /CUMM) 0 09/23 09/23 1840 1719 Chemistry Lactic Acid (0.7 - 2.1 mmol/L) 2.1 Urines Urinalysis LIGHT H Urine Color (YEL,AMB,STR) YEL Urine Clarity (CLEAR) HAZY H Urine pH (5.0 - 8.0) 5.5 Ur Specific [place] (1.001 - 1.035) 1.025 Urine Protein (NEG,<30 MG/DL) 30 H Urine Ketones (NEG) NEG Urine Nitrite (NEG) NEG Urine Bilirubin (NEG) NEG Urine Urobilinogen (0.1 - 1.0 EU/dl) 0.2 Ur Leukocyte Esterase (NEG) NEG Ur Microscopic SEDIMENT EXAMINED Urine RBC (0 - 5 /HPF) 15-25 H Urine WBC (0 - 2 /HPF) RARE Ur Epithelial Cells (NONE,FEW) RARE Hyaline Casts (0/LPF) 1-3 H Urine Mucus (FEW,NONE) MOD H Urine Hemoglobin (NEG) LARGE H Urine Glucose (N MG/DL) NEG 09/23 1624 Hematology CBC w Diff NO MAN DIFF REQ WBC (4.8 - 10.8 /CUMM) 6.7 RBC (4.70 - 6.10 /CUMM) 4.77 Hgb (14.0 - 18.0 G/DL) 15.2 Hct (42 - 52 %) 45.0 MCV (80.0 - 94.0 FL) 94.4 H MCH (27.0 - 31.0 PG) 32.0 H MCHC (33.0 - 37.0 G/DL) 33.9 RDW (11.5 - 14.5 %) 16.3 H Plt Count (130 - 400 /CUMM) 59 L MPV (7.4 - 10.4 FL) 10.5 H Gran % (42.2 - 75.2 %) 69.3 Lymphocytes % (20.5 - 51.1 %) 17.3 L Monocytes % (1.7 - 9.3 %) 9.2 Eosinophils % (0 - 5 %) 3.8 Basophils % (0.0 - 2.0 %) 0.4 Absolute Granulocytes (1.4 - 6.5 /CUMM) 4.7 Absolute Lymphocytes (1.2 - 3.4 /CUMM) 1.2 Absolute Monocytes (0.10 - 0.60 /CUMM) 0.6 Absolute Eosinophils (0.0 - 0.7 /CUMM) 0.3 Absolute Basophils (0.0 - 0.2 /CUMM) 0 Last 24 Hours of Sonu Results: Blood cultures September 18 negative Blood cultures September 19 one bottle positive for coag-negative Staph Blood cultures September 23 negative Rapid flu swab September 18 negative Urine culture September 19 negative Urine culture September 23 negative Urine strep pneumo antigen and Legionella antigen September 19 negative Stool C. difficile September 19 negative Sputum culture September 24 pending with gram stain revealing many white blood cells and no organisms Diagnostic Data Recent Imaging Findings: Chest x-ray September 24 reveals mild diffuse prominent linear interstitial lung markings with a few patchy opacities, with no discrete airspace consolidation CT of the abdomen and pelvis September 20 reveals small volume ascites, moderate splenomegaly and mildly enlarged prostate Right upper quadrant ultrasound September 20 reveals diffuse thickening of the gallbladder wall with cholesterol crystal and multiple calculi; small amount of free fluid in the right upper quadrant around the liver CTA of the chest September 18 reveals increased interstitial prominence with patchy areas of opacification in the right upper lobe and right lung base Assessment/Plan Assessment/Plan Impression: This is a 77-year-old man with a history of alcoholic induced cirrhosis, with esophageal varices and thrombocytopenia, hypertension, diabetes, obstructive sleep apnea, maintained on CPAP, and chronic diarrhea admitted on September 18 with several days of fevers, weakness and lethargy, found to be febrile with a normal white blood cell count, treated empirically for pneumonia with focal airspace disease in the right upper lobe and right base on CT scan, with initial defervescence but with the development of recurrent fevers with no obvious source. The etiology of his fevers is unclear. He has no respiratory symptoms or consolidation on chest x-ray to suggest pneumonia and his sputum gram stain reveals no organisms. He does have a small amount of ascites on his recent imaging studies which could raise concern for spontaneous bacterial peritonitis though he has no abdominal pain or tenderness. His recent imaging revealed gallstones with a thickened gallbladder wall, raising concern for cholecystitis, though he has no abdominal tenderness and suspect his elevated liver enzymes are related to alcoholic hepatitis/cirrhosis. C. difficile is certainly possible given his recent antibiotics and diarrhea, though he does report chronic diarrhea and his initial C. difficile was negative. Noninfectious causes including drug fever, with a mild facial rash and slightly elevated eosinophils, or CHF, with his I's greater than his O's by 6 L, are also possible. His 1 positive blood culture for coag-negative Staph presumably represents a contaminant and does not require treatment. Suggestion: 1. Repeat stool for C. difficile toxin and send for PCR if negative 2. Repeat liver enzymes 3. Repeat abdominal ultrasound to evaluate for ascites and pursue paracentesis if present 4. Consider HIDA scan if his liver enzymes remain elevated 5. Echocardiogram 6. Consider need for diuresis 7. Discontinue Vancomycin and Ceftazidime and follow off antibiotics pending above Consult Acknowledgment - Thank you for your consult request.
--- NOTE | 2017-09-24 16:24 | Cons- Infect Disease ---
General Information and HPI Consulting Request Date of Consult: 09/24/17 Requested By: Josef Morocho MD Reason for Consult: Unexplained fever Source of Information: patient, family History of Present Illness: This is a 77-year-old man with a history of alcoholic induced cirrhosis, with esophageal varices, chronic thrombocytopenia, hypertension, diabetes, obstructive sleep apnea, on CPAP, status post bilateral knee replacements, and chronic diarrhea admitted on September 18 with several days of fevers, weakness and lethargy. On admission he was febrile to 102.7. Laboratory data revealed Allergies/Medications Allergies: Coded Allergies: Penicillins (UNKNOWN 11/17/15) Home Med List: Cephalexin (Keflex) 500 MG CAPSULE 1 CAP PO BID pNEUMONIA Metformin HCl 1,000 MG TABLET 1 TAB PO BID DM (Reported) Nadolol 20 MG TABLET 1 TAB PO DAILY LIVER HEALTH (Reported) Omeprazole 20 MG CAPSULE.DR 1 CAP PO DAILY GI (Reported) Rifaximin (Xifaxan) 550 MG TABLET 550 MG PO BID hepatic encephalopathy Tamsulosin HCl 0.4 MG CAP.ER.24H 1 CAP PO DAILY PROSTATE (Reported) Valsartan/Hydrochlorothiazide (Valsartan-Hctz 80-12.5 MG Tab) 80 MG-12.5 MG TABLET 1 TAB PO DAILY HTN (Reported) Past History Travel History Traveled to [place] past 21 day No Medical History Blood Transfusion Hx: No Neurological: NONE EENT: NONE Cardiovascular: hypertension Respiratory: NONE Gastrointestinal: ventral hernia CIRRHOSIS Hepatic: NONE Renal: NONE Musculoskeletal: NONE Psychiatric: NONE Endocrine: diabetes Blood Disorders: NONE 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
--- NOTE | 2017-09-24 22:51 | CT SCAN REPORT ---
EXAMINATION: CT HEAD WITHOUT CONTRAST AND ULTRASOUND ABDOMEN COMPLETE CLINICAL INFORMATION: Fevers and chills. Lethargy. Portal hypertension with ascites COMPARISON: 09/20/2017 TECHNIQUE: Nonenhanced CT scan of brain complete abdominal ultrasound. FINDINGS: Question diminished limits evaluation. There is no definite acute hemorrhage or infarct seen. No hydrocephalus or extra-axial abnormality. Symmetrical white matter changes most consistent with terminal supply white matter chronic lacunar ischemic/infarct involving the ojeda radiata and centrum semiovale. Coarse calcific aeration right frontal lobe likely dystrophic and chronic. No mass. No calvarial sinus disease. Ultrasound of the abdomen demonstrates pancreas are grossly normal. Aorta and IVC normal. There is a moderate amount of simple ascites. The liver is grossly normal. No definitive findings of cirrhosis or focal mass. Gallbladder notable for multiple tiny stones. The gallbladder wall is thickened 8 mm and the patient does have a sonographic Rodriguez's sign. No biliary ductal dilatation. CBD 6 mm. Right kidney normal at 10.3 cm. Left kidney normal at 9.8 cm. The spleen is enlarged 16.6 cm. Limited imaging due to body habitus and limited patient cooperativeness. IMPRESSION: 1. No acute intracranial abnormality. 2. Moderate ascites. 3. Gallstones with gallbladder wall thickening and tenderness. Correlate clinically concerning acute cholecystitis. Imaging findings are concordant with this diagnosis but is confounded by the ascites and liver disease.
[2017-09-25 02:00] VITALS: BP 122/52
[2017-09-25 06:00] VITALS: BP 138/66
--- NOTE | 2017-09-25 07:27 | PN- Housestaff ---
Stewart KENT,Penelope 09/25/17 0727: Subjective Follow-up For: Community-acquired pneumonia-resolved Fever possible cholecystitis Moderate arthritis Complaints: no complaints Subjective: Patient seen and examined at bedside. He was lying comfortably in his bed. No overnight events. He says he feels fine. He denies chest pain, fever, shortness of breath, diarrhea, vomiting, abdominal pain. Review of Systems Constitutional: Reports: see HPI. Objective Last 24 Hrs of Vital Signs/I&O Vital Signs Date Time Temp Pulse Resp B/P B/P Pulse O2 O2 Flow FiO2 Mean Ox Delivery Rate 09/25 0941 97.2 09/25 0941 96.0 82 20 128/80 95 Nasal 2.0L Cannula 09/25 0914 80 128/80 09/25 0756 97.2 09/25 0600 97.2 66 20 138/66 95 09/25 0200 97.6 09/25 0200 97.0 57 20 122/52 95 09/25 0051 100.3 09/25 0051 98.9 09/25 0000 Nasal 2.0L Cannula 09/24 2328 98.9 09/24 2229 102.0 09/24 2137 102.0 09/24 2136 97.8 74 20 120/68 93 Nasal 2.0L Cannula 09/24 1840 98.4 09/24 1840 97.5 60 19 110/60 96 Nasal 2.0L Cannula 09/24 1600 95 Nasal 2.0L Cannula 09/24 1503 97.6 20 94 Nasal 2.0L Cannula 09/24 1502 98.8 68 18 102/58 94 Nasal 2.0L Cannula 09/24 1212 100.1 80 22 126/78 94 Nasal 2.0L Cannula 09/24 1055 102.4 Intake & Output 09/25 1600 09/25 0800 09/25 0000 Intake Total 540 840 Output Total 600 Balance 540 240 Intake, IV 300 600 Intake, Oral 240 240 Output, Urine 600 Patient 209 lb Weight Physical Exam General Appearance: Alert, Oriented X3, Cooperative, No Acute Distress Cardiovascular: Regular Rate, Normal S1, Normal S2, No Murmurs Lungs: Normal Air Movement Abdomen: Soft, No Tenderness, No Hepatospenomegaly Neurological: Normal Speech, Strength at 5/5 X4 Ext, Normal Tone, Sensation Intact Extremities: No Cyanosis, No Edema, Normal Pulses Current Medications: Current Medications Sig/Dimple Start time Last Medication Dose Route Stop Time Status Admin Acetaminophen 650 MG ONCE ONE 09/24 2215 CAN PO 09/24 2216 Ceftazidime 1,000 MG IQ8 09/23 1700 DC 09/24 IV 1646 Dextrose/Sodium 1,000 ML Q13H 09/23 1430 AC 09/25 Chloride IV 0037 Docusate Sodium 100 MG BID 09/19 1000 AC 09/23 PO 1052 Ibuprofen 600 MG ONCE ONE 09/24 2230 DC 09/24 PO 09/24 2231 2229 Insulin Aspart 0 TIDAC 09/21 0800 DC 09/24 SC 1241 Insulin Human Regular 2 UNITS .STK-MED ONE 09/25 0034 DC IV 09/25 0035 Insulin Human Regular 0 Q6 09/24 1800 AC 09/25 SC 0622 Lactobacillus 1 CAP BID 09/23 1000 AC 09/25 Acidophilus PO 0914 Loperamide HCl 2 MG DAILY PRN 09/24 1452 AC PO Loperamide HCl 2 MG Q6P PRN 09/23 0930 DC 09/23 PO 1118 Losartan Potassium 50 MG DAILY 09/19 1000 AC 09/25 PO 0915 Nadolol 20 MG DAILY 09/19 1000 AC 09/25 PO 0914 Patient Medication 1 ED ONE ONE 09/24 1600 DC 09/24 Teaching ED 09/24 1601 1646 Polyethylene Glycol 17 GM DAILY 09/19 1000 AC 09/23 PO 1052 Rifaximin 550 MG BID 09/20 2200 AC 09/25 PO 0915 Tamsulosin HCl 0.4 MG DAILY 09/19 1000 AC 09/25 PO 0920 Vancomycin HCl 1,000 MG Q24H 09/24 1900 DC Dextrose/Water 250 ML IV Last 24 Hrs of Lab/Sonu Results Last 24 Hrs of Labs/Mics: Laboratory Tests 09/25/17 0820: Anion Gap 9, Estimated GFR > 60, BUN/Creatinine Ratio 27.0 H, Total Bilirubin 2.3 H, Direct Bilirubin 1.1 H, AST 69 H, ALT 53, Alkaline Phosphatase 247 H, Total Protein 7.0, Albumin 2.8 L, PT 19.1 H, INR 1.74 H, CBC w Diff NO MAN DIFF REQ, RBC 4.72, MCV 96.7 H, MCH 32.0 H, MCHC 33.1, RDW 16.8 H, MPV 10.8 H, Gran % 60.4, Lymphocytes % 22.8, Monocytes % 8.9, Eosinophils % 7.3 H, Basophils % 0.6, Absolute Granulocytes 3.2, Absolute Lymphocytes 1.2, Absolute Monocytes 0.5, Absolute Eosinophils 0.4, Absolute Basophils 0 09/24/17 1538: Ammonia 30 09/24/17 1504: Total Bilirubin Cancelled, Direct Bilirubin Cancelled, AST Cancelled, ALT Cancelled, Alkaline Phosphatase Cancelled, Total Protein Cancelled, Albumin Cancelled Microbiology 09/25 1003 BODY FLUID: Body Fluid Culture - ORD 09/25 1003 BODY FLUID: Gram Stain - ORD 09/24 1440 STOOL: Clostridium difficile Toxin A & B - RECD Assessment/Plan Assessment: Patient is 77-year-old male with past medical history significant for [id number] diabetes, hypertension, cecal polyp status post right colectomy, BPH, alcoholic liver cirrhosis, remote history of alcohol abuse 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 Assessment and plan 1. Community-acquired pneumonia-patient had right upper lobe pneumonia treated with IV ceftriaxone and azithromycin. he was started on cefuroxime 2 days ago at around 4 PM on the same day patient started developing fever MAXIMUM TEMPERATURE 104 with chills and appeared more lethargic. Stat chest x-ray blood culture, urine cultures, sputum culture, lactic acid CBC, BEP was done. Chest x -ray was negative. Cultures no growth so far. Initially started on ceftazidime and vancomycin but the disc for continued per ID. Patient continued having high fever and hence ultrasound abdomen and CAT scan of the head was taken ultrasound abdomen showed gallstones with gallbladder thickening with moderate ascites. Rodriguez sign was positive. In view of high suspicion for acute cholecystitis patient will get a HIDA scan today. Surgery, ID, GI on board. On CAT scan patient has central lymphadenopathy. Malignancy needs to be ruled out. Seen by pulmonology who suggested outpatient PET scan. 2. Hepatic encephalopathy-upon admission patient was confused. This can be secondary due to pneumonia/alcoholic liver disease. Patient mentation improved he is alert awake and conscious 2. 3. Patient had 3 bowel movements today, Which was watery. lactobacillus and loperamide was started. 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 This admission patient was on antibiotics. His diarrhea can be secondary due to C. difficile. C. difficile report pending. Will continue monitoring. Lactulose was held in view of diarrhea. Rifaximin was started by GI and we will continue the same. 4. Patient had an ultrasound right upper quadrant and CT abdomen and pelvis- negative for cholelithiasis/diverticulitis. 5. Avoid NSAID, lactulose, hydrochlorothiazide, omeprazole Code-full code Diet-diabetic diet Physical therapy worked with him who suggested home physical therapy. Patient Daughter updated over the phone about his current condition today. 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 We will try calling her today. Patient Daughter to be informed about any updates [phone] Problem List: 1. Esophageal varices 2. Ascites 3. Elevated LFTs 4. Change in mental status Pain Ratin Pain Location: None Pain Goal: Remain pain free Pain Plan: Tylenol Tomorrow's Labs & Rationales: CBC, BEP Josef Morocho 09/25/17 1133: Attending MD Review Statement Attending Statement Attending MD Statement: examined this patient, discuss w/resident/PA/DIRECTOR PERSONAL, agreed w/resident/PA/DIRECTOR PERSONAL, discussed with family, reviewed EMR data (avail), discussed with nursing, discussed with case mgmt, reviewed images, amended to note Attending Assessment/Plan: 77 o/m with pmh of liver cirrhosis admitted with fever and cough with shortness of breath on exertion. CTA reveals Focal airspace disease in the right upper lobe and right base suggestive of edema and infiltrate with lymphadenopathy. RUQ USG initial negative, CT abd/pelvis with no evidence of acute pathology. Patient admitted with impression of possible community acquired pneumonia completed abx. ARNALDO resolved. LAST 24 HRS: Fever 102, Diarrhea improved, AAOX 2. NO focal deficit. Panculture including c diff f/u remains negative. GI consulted which is suggestive of compensated liver disease. USG gallbladder possible cholecystitis HIDA Scan awaited. f/u GI and ID. ?MRCP in future. General surgery consulted and f/u HIDA. Plan for cholecystectomy as per surgery. Fever Consulted ID off abx for now, abx as per ID. Pulmonary reviewed images and f/u o/p for repeat imaging to see resolution of infiltrates. Monitor hemodyamics and labs. PT recommend home PT. gi/dvt prophyalxis.
[2017-09-25 08:54] LABS: PT 19.1 SEC (9.4-12.5)
[2017-09-25 09:27] LABS: ABSOLUTE BASOPHIL COUNT 0 /CUMM (0.0-0.2); ABSOLUTE EOSINOPHIL COUNT 0.4 /CUMM (0.0-0.7); ABSOLUTE GRANULOCYTE CT 3.2 /CUMM (1.4-6.5); ABSOLUTE LYMPH COUNT 1.2 /CUMM (1.2-3.4); ABSOLUTE MONOCYTE COUNT 0.5 /CUMM (0.10-0.60); BASOPHIL % 0.6 % (0.0-2.0); EOSINOPHIL % 7.3 % (0-5); HEMATOCRIT 45.7 % (42-52); MEAN CORPUSCULAR HGB CONC 33.1 G/DL (33.0-37.0); MEAN CORPUSCULAR VOLUME 96.7 FL (80.0-94.0); MEAN PLATELET VOLUME 10.8 FL (7.4-10.4); RBC DISTRIBUTION WIDTH 16.8 % (11.5-14.5); RED BLOOD CELL CT 4.72 /CUMM (4.70-6.10); WHITE BLOOD CELL COUNT 5.4 /CUMM (4.8-10.8)
[2017-09-25 09:41] VITALS: BP 128/80
[2017-09-25 09:58] LABS: GRANULOCYTE % 60.4 % (42.2-75.2); PLATELET COUNT 42 /CUMM (130-400)
[2017-09-25 13:10] VITALS: BP 122/80
--- NOTE | 2017-09-25 14:36 | PN- Infect Dx ---
Subjective Subjective: MAXIMUM TEMPERATURE 103.3. He has had no further diarrhea and denies any nausea , vomiting or abdominal pain. He does note mild shortness of breath but has no chest pain or cough. Objective Last 24 Hrs of Vital Signs/I&O Vital Signs Date Time Temp Pulse Resp B/P B/P Pulse O2 O2 Flow FiO2 Mean Ox Delivery Rate 09/25 1311 98.0 09/25 1310 97.9 64 22 122/80 96 Nasal 2.0L Cannula 09/25 0941 97.2 09/25 0941 96.0 82 20 128/80 95 Nasal 2.0L Cannula 09/25 0914 80 128/80 09/25 0800 94 Nasal 2.0L Cannula 09/25 0756 97.2 09/25 0600 97.2 66 20 138/66 95 09/25 0200 97.6 09/25 0200 97.0 57 20 122/52 95 09/25 0051 100.3 09/25 0051 98.9 09/25 0000 Nasal 2.0L Cannula 09/24 2328 98.9 09/24 2229 102.0 09/24 2137 102.0 09/24 2136 97.8 74 20 120/68 93 Nasal 2.0L Cannula 09/24 1840 98.4 09/24 1840 97.5 60 19 110/60 96 Nasal 2.0L Cannula 09/24 1600 95 Nasal 2.0L Cannula 09/24 1503 97.6 20 94 Nasal 2.0L Cannula 09/24 1502 98.8 68 18 102/58 94 Nasal 2.0L Cannula Intake & Output 09/25 1600 09/25 0800 09/25 0000 Intake Total 600 540 840 Output Total 450 600 Balance 150 540 240 Intake, IV 600 300 600 Intake, Oral 0 240 240 Number 0 Bowel Movements Output, Urine 450 600 Patient 209 lb Weight Physical Exam Other Physical Findings: He appears comfortable in no acute distress Lungs bibasilar crackles Heart regular rhythm with no murmur Abdomen is soft, nontender with positive bowel sounds Extremities trace edema both lower extremities Results Last 24 Hours of Lab Results: Laboratory Tests 09/25 09/25 09/25 09/24 1230 1230 0820 1538 Chemistry Sodium (137 - 145 mmol/L) 144 Potassium (3.5 - 5.1 mmol/L) 4.1 Chloride (98 - 107 mmol/L) 111 H Carbon Dioxide (22 - 30 mmol/L) 24 Anion Gap (5 - 16) 9 BUN (9 - 20 mg/dL) 27 H Creatinine (0.7 - 1.2 mg/dL) 1.0 Estimated GFR (>60 ml/min) > 60 BUN/Creatinine Ratio (7 - 25 %) 27.0 H Total Bilirubin (0.2 - 1.3 mg/dL) 2.3 H Direct Bilirubin (< 0.4 mg/dL) 1.1 H AST (17 - 59 U/L) 69 H ALT (21 - 72 U/L) 53 Alkaline Phosphatase (< 127 U/L) 247 H Ammonia (9 - 30 umol/L) 30 Total Protein (6.3 - 8.2 g/dL) 7.0 Albumin (3.5 - 5.0 g/dL) 2.8 L Coagulation PT (9.4 - 12.5 SEC) 19.1 H INR (0.90 - 1.17) 1.74 H Hematology CBC w Diff NO MAN DIFF REQ WBC (4.8 - 10.8 /CUMM) 5.4 RBC (4.70 - 6.10 /CUMM) 4.72 Hgb (14.0 - 18.0 G/DL) 15.1 Hct (42 - 52 %) 45.7 MCV (80.0 - 94.0 FL) 96.7 H MCH (27.0 - 31.0 PG) 32.0 H MCHC (33.0 - 37.0 G/DL) 33.1 RDW (11.5 - 14.5 %) 16.8 H Plt Count (130 - 400 /CUMM) 42 L MPV (7.4 - 10.4 FL) 10.8 H Gran % (42.2 - 75.2 %) 60.4 Lymphocytes % (20.5 - 51.1 %) 22.8 Monocytes % (1.7 - 9.3 %) 8.9 Eosinophils % (0 - 5 %) 7.3 H Basophils % (0.0 - 2.0 %) 0.6 Absolute Granulocytes (1.4 - 6.5 /CUMM) 3.2 Absolute Lymphocytes (1.2 - 3.4 /CUMM) 1.2 Absolute Monocytes (0.10 - 0.60 /CUMM) 0.5 Absolute Eosinophils (0.0 - 0.7 /CUMM) 0.4 Absolute Basophils (0.0 - 0.2 /CUMM) 0 Other Body Source Fluid WBC Pending Fld Total RBCs Counted Pending Fluid Glucose (mg/dL) 140 Fluid Total Protein (g/dL) < 2.0 Fluid Albumin (g/dL) < 1.0 Fluid LDH (U/L) 162 Fluid Amylase (U/L) < 30 09/24 1504 Chemistry Total Bilirubin Cancelled Direct Bilirubin Cancelled AST Cancelled ALT Cancelled Alkaline Phosphatase Cancelled Total Protein Cancelled Albumin Cancelled Last 24 Hours of Sonu Results: Blood cultures 2 September 23 negative Urine culture September 23 negative Sputum culture September 24 no growth Stool C. difficile September 24 negative Ascitic fluid culture September 25 pending Recent Imaging Studies: Abdominal ultrasound September 24 revealed a moderate amount of simple ascites; gallbladder with multiple stones, with a thickened wall and a sonographic Rodriguez sign, with no biliary ductal dilatation; mild splenomegaly Assessment/Plan ID Impression: Stable, with temperatures now normal and white blood cell count remaining normal , now off antibiotics and, with increased eosinophils on his differential, drug fever, perhaps secondary to the Ceftriaxone, remains a possibility. His abdominal ultrasound findings of a sonographic Rodriguez sign raises concern for acute cholecystitis and further evaluation for this, as discussed, must be considered. He also has a small amount of ascites, raising concern for spontaneous bacterial peritonitis, and he did undergo a paracentesis earlier today. His liver enzymes are decreasing, possibly secondary to resolving alcoholic hepatitis or to a passed gallstone. As he remains stable he can be followed off antibiotics pending further evaluation. His exam suggests mild fluid overload and he may benefit from diuresis (note he was on Hydrochlorothiazide prior to admission). Suggestion: 1. Follow-up results of the recent paracentesis and HIDA scan 2. Stool for C. difficile PCR if diarrhea persists 3. Echocardiogram 4. Consider resumption of his diuretic 5. Continue to follow off antibiotics pending above
--- NOTE | 2017-09-25 15:21 | NUCLEAR MEDICINE REPORT ---
BILIARY TRACT IMAGING STUDY CLINICAL INDICATION: Elevated liver enzymes. PROCEDURE: Scintillation camera images were obtained over the abdomen for an observation 4 hours following the intravenous administration of 5.5 millicuries technetium 99m Choletec. FINDINGS: There is only fair concentration of activity in the liver by 5 minutes post injection and there is prolonged visualization of the cardiac blood pool, which is well visualized until at least 15 minutes postinjection. The splenic blood pool also shows prolonged activity. Biliary activity is visualized by 35 minutes post injection, the gallbladder is well visualized by 50 minutes. There is no visualization of bowel activity up to 96 minutes post injection. Delayed images obtained at 4 hours post injection show good visualization of small bowel activity and persistent visualization of the gallbladder. There is in addition, abnormal diffuse retention of activity in the liver at this time. IMPRESSION: Visualization of the gallbladder is evidence of a patent cystic duct and strong evidence against the diagnosis of acute cholecystitis. The common bile duct is patent. There is significant impairment in liver function as evidenced by slow accumulation of activity in the liver and abnormal retention in the liver at 4 hours.
--- NOTE | 2017-09-25 15:49 | ECHOCARDIOGRAM REPORT ---
CURTIS MOLINA Age: 77 : 1940 Gender: M Exam Date: 09/24/2017 19:16 Exam Location: [address] [place] [address] Ht (in): 70 Wt (lb): 206 BSA: 2.17 BP: / Ordering Physician: Penelope William MD Referring Physician: Nicholas Castillo MD Technologist: Mamta Frias [facility] Room Number: [id number] Indications: RESPIRATORY FAILURE Rhythm: Sinus Technical Quality: fair FINDINGS Left Ventricle Normal size left ventricle. Left ventricular wall thickness mildly increased. Normal left ventricular ejection fraction estimated at 60-65%. Right Ventricle Right ventricle at upper limits of normal. Right Atrium Normal right atrial size. Left Atrium Moderate left atrial dilatation. Mitral Valve Moderate mitral annular calcification. Mild mitral regurgitation. Aortic Valve Diffuse thickening (sclerosis) of the aortic valve cusps with reduced excursion. Mild aortic stenosis. Mild aortic regurgitation. Tricuspid Valve Tricuspid valve is normal in structure and function. Mild tricuspid regurgitation. Unable to estimate the right ventricular systolic pressure. Pulmonic Valve Pulmonic valve not well visualized, grossly normal. Mild pulmonic regurgitation. Pericardium No pericardial effusion. Great Vessels Mildly dilated proximal ascending aorta (tube). CONCLUSIONS Normal left and right ventricular systolic function. Mild concentric left ventricular hypertrophy. Moderate Left atrial enlargement. Mild Aortic stenosis. Nicholas Castillo M.D. (Electronically Signed) Final Date: 25 September 2017 15:48 MEASUREMENTS (Male / Female) Normal Values 2D ECHO LV Diastolic Diameter PLAX 4.6 cm 4.2 - 5.9 / 3.9 - 5.3 cm LV Systolic Diameter PLAX 2.6 cm 2.1 - 4.0 cm LV Fractional Shortening PLAX 43.5 % 25 - 46 % LV Ejection Fraction 2D Teich 74.7 % IVS Diastolic Thickness 1.4 cm LVPW Diastolic Thickness 1.4 cm LV Relative Wall Thickness 0.6 RV Internal Dim ED PLAX 3.8 cm 1.9 - 3.8 cm LVOT Diameter 2.1 cm Aortic Root Diameter 3.5 cm LA Systolic Diameter LX 5.0 cm 3.0 - 4.0 / 2.7 - 3.8 cm LA Volume 68.0 cm 18 - 58 / 22 - 52 cm Ascending Aorta Diameter 4.0 cm DOPPLER AV Peak Velocity 225.0 cm/s AV Peak Gradient 20.3 mmHg AV Mean Velocity 157.0 cm/s AV Mean Gradient 11.0 mmHg AV Velocity Time Integral 54.7 cm LVOT Peak Velocity 113.0 cm/s LVOT Peak Gradient 5.1 mmHg LVOT Mean Velocity 82.0 cm/s LVOT Mean Gradient 3.0 mmHg LVOT Velocity Time Integral 29.6 cm LVOT Stroke Volume 102.5 cm AV Area Cont Eq vti 1.9 cm AV Area Cont Eq pk 1.7 cm MV Peak Velocity 116.0 cm/s MV Peak Gradient 5.4 mmHg MV Mean Velocity 58.7 cm/s MV Mean Gradient 2.0 mmHg Mitral E Point Velocity 115.0 cm/s Mitral A Point Velocity 103.0 cm/s Mitral E to A Ratio 1.1 MV PHT Velocity 123.0 cm/s MV Deceleration Hartley 512.0 cm/s MV Pressure Half Time 72.1 ms MV Area PHT 3.1 cm MV Deceleration Time 235.0 ms PV Peak Velocity 124.0 cm/s PV Peak Gradient 6.2 mmHg PV Mean Velocity 83.2 cm/s PV Mean Gradient 3.0 mmHg PV Velocity Time Integral 28.1 cm LV E' Lateral Velocity 10.4 cm/s Mitral E to LV E' Lateral Ratio 11.1 LV E' Septal Velocity 8.5 cm/s Mitral E to LV E' Septal Ratio 13.6
--- NOTE | 2017-09-25 16:49 | ULTRASOUND REPORT ---
CLINICAL HISTORY: This patient is a 77 years old Male with ascites found on physical exam, who is referred to Interventional Radiology for ultrasound-guided diagnostic paracentesis. The patient's platelets measured 42, therefore a small gauge needle will be utilized to obtain fluid for diagnostic purposes only. PROCEDURE: Ultrasound-guided paracentesis. PHYSICIANS: Dr. Saima Lawson (attending). MEDICATIONS: 5 mL of 1% lidocaine SQ. COMPLICATIONS: None ESTIMATED BLOOD LOSS: <5 mL SPECIMENS: Ascites IMPLANT: None. SITE MARKING: As part of the preprocedure verification policy, a site marking procedure was initiated. Due to the nature the procedure, the insertion site could not be predetermined thus invoking the policy of exemption to site laterality and marking. Insertion site marking was performed in the procedure room in conjunction with imaging confirmation. PROCEDURE NOTE: Informed consent was obtained from the patient's daughter, Clara, prior to the procedure. During this process, the procedure and potential alternatives were explained along with the intended outcome and benefits. The risks of the procedure, including the possibility of an unsuccessful procedure, as well as the risk of not doing the procedure, were discussed. The patient's daughter was given the opportunity to ask questions regarding the procedure and appeared competent to make decisions. A signed consent form documenting this discussion was placed in the medical record. A time-out procedure was performed. Appropriate preprocedure medical history and imaging studies were reviewed. The patient was brought to the ultrasound room and placed in the supine position. A time-out procedure was performed. Ultrasound images of the abdomen were obtained to localize a small collection of ascites. Images were permanently saved to the record. An area of the right lower quadrant was prepped and draped in the standard sterile fashion. All elements of maximal sterile barrier technique followed including use of cap, mask, sterile gown, sterile gloves, a sterile full body drape and hand hygiene. Also followed skin preparation with 2% chlorhexidine for cutaneous antisepsis, and sterile ultrasound preparation with sterile gel and probe cover when applicable. 5 mL of 1% lidocaine was used to obtain local anesthesia of the skin and deeper tissues. Under ultrasound guidance, 22-gauge spinal needle was introduced to sample fluid. There was no evidence of traversing adjacent organs or vascular structures. The needle was removed and sterile dressing applied. The patient tolerated the procedure well without evidence of complications. FINDINGS: Small simple abdominal ascites as detailed above. IMPRESSION: Successful ultrasound-guided diagnostic paracentesis. PLAN: The patient was stable after the procedure. The patient will be transferred to the floor.
--- NOTE | 2017-09-25 17:51 | MRI REPORT ---
EXAMINATION: MR ABDOMEN WITHOUT CONTRAST CLINICAL INFORMATION: Fever with hyperbilirubinemia COMPARISON: CT scan abdomen performed 09/20/2017 TECHNIQUE: MR abdomen without contrast was obtained using routine sequences. FINDINGS: Liver and spleen: The liver is normal in size and contour without focal finding on this noncontrast scan. The spleen is moderately enlarged measuring up to 17 cm in greatest dimension. No focal findings are seen. Biliary tract: The gallbladder appears physiologically distended without evidence for calculi. No obvious acute findings seen. Normal caliber intra and extra hepatic bile ducts are demonstrated. The common bile duct measures up to 0.4 cm in greatest diameter. No transition point in size of bile duct is demonstrated. No evidence for choledocholithiasis or other remarkable finding. Pancreas: The pancreas is markedly atrophic. There are tiny cystic changes to the distal pancreatic tail near the splenic hilum. The main pancreatic duct is normal caliber measuring just less than 0.3 cm. There is a small amount of fluid near the pancreatic tail at the level of the splenic hilum which would correspond to the presence of ascites elsewhere in the abdomen. Peritoneal cavity and mesentery: There is a mild to moderate degree of ascites which appears increased from 09/20/2017. No focal lesions are seen. There is expected edematous change to the mesentery and omentum. Lymphovascular: No bulky adenopathy. No evidence for aneurysm. Adrenal glands and kidneys: Normal-size kidneys show no hydronephrosis. Redemonstrated 2.5 cm left renal cyst. Additional findings: Trace left pleural effusion. No bowel dilatation. No suspicious marrow signal finding. IMPRESSION: 1. Normal-appearing biliary tract. Specifically, no evidence for biliary obstruction, choledocholithiasis or other remarkable finding. 2. Mild to moderate ascites appears increased from CT scan of 09/20/2017. 3. There are several small cystic structures in the pancreatic tail which can be associated with pancreatitis. The pancreas itself is atrophic with no evidence for ductal dilatation.
[2017-09-25 21:24] VITALS: BP 92/70
[2017-09-26 02:00] VITALS: BP 124/72
[2017-09-26 07:07] VITALS: BP 130/83
--- NOTE | 2017-09-26 07:09 | PN- Housestaff ---
See Addendum Subjective Follow-up For: Community-acquired pneumonia-resolved Chronic diarrhea Fever-evaluating Complaints: no complaints Subjective: Patient seen and examined at bedside. No overnight events. He is alert, awake and oriented 3. He denies chest pain, shortness of breath, weakness, nausea, vomiting, abdominal pain. Review of Systems Constitutional: Reports: see HPI. Objective Last 24 Hrs of Vital Signs/I&O Vital Signs Date Time Temp Pulse Resp B/P B/P Pulse O2 O2 Flow FiO2 Mean Ox Delivery Rate 09/26 0944 97.4 09/26 0944 100.4 68 20 122/60 95 Nasal 2.0L Cannula 09/26 0851 78 132/80 09/26 0800 94 Nasal 2.0L Cannula 09/26 0708 100.4 09/26 0707 98.7 66 18 130/83 97 Nasal Cannula 09/26 0200 100.1 09/26 0200 98.1 65 18 124/72 94 Nasal Cannula 09/26 0000 Nasal 2.0L Cannula 09/25 2124 98.5 09/25 2124 97.6 58 19 92/70 95 Nasal 2.0L Cannula 09/25 1600 Nasal 2.0L Cannula 09/25 1311 98.0 09/25 1310 97.9 64 22 122/80 96 Nasal 2.0L Cannula Intake & Output 09/26 1600 09/26 0800 09/26 0000 Intake Total 840 765 Output Total 150 400 Balance 690 365 Intake, IV 600 525 Intake, Oral 240 240 Number 0 1 Bowel Movements Output, Urine 150 400 Patient 202 lb Weight Weight Bed scale Measurement Method Physical Exam General Appearance: Alert, Oriented X3, Cooperative, No Acute Distress Skin: No Rashes, No Breakdown, No Significant Lesion HEENT: Atraumatic, PERRLA Neck: Supple, No JVD Lymphatic: no lymphadenopathy Cardiovascular: Regular Rate, Normal S1, Normal S2, No Murmurs Lungs: Clear to Auscultation Abdomen: Soft, No Tenderness, No Hepatospenomegaly Neurological: Normal Speech, Strength at 5/5 X4 Ext, Normal Tone, Sensation Intact Extremities: No Cyanosis, No Edema, Normal Pulses Reproductive (MALE) Normal male genitalia Current Medications: Current Medications Sig/Dimple Start time Last Medication Dose Route Stop Time Status Admin Dextrose/Sodium 1,000 ML Q13H 09/23 1430 AC 09/26 Chloride IV 0859 Docusate Sodium 100 MG BID 09/19 1000 AC 09/23 PO 1052 Insulin Aspart 0 TIDAC 09/25 1700 AC SC Insulin Human Regular 0 Q6 09/24 1800 DC 09/25 SC 0622 Lactobacillus 1 CAP BID 09/23 1000 AC 09/26 Acidophilus PO 0851 Lidocaine 1 ML .STK-MED ONE 09/25 1527 DC ID 09/25 1528 Loperamide HCl 2 MG DAILY PRN 09/24 1452 AC PO Losartan Potassium 50 MG DAILY 09/19 1000 AC 09/26 PO 0851 Nadolol 20 MG DAILY 09/19 1000 AC 09/26 PO 0851 Polyethylene Glycol 17 GM DAILY 09/19 1000 AC 09/23 PO 1052 Rifaximin 550 MG BID 09/20 2200 AC 09/26 PO 0851 Tamsulosin HCl 0.4 MG DAILY 09/19 1000 AC 09/26 PO 0851 Thiamine HCl 100 MG DAILY 09/26 1000 AC PO Last 24 Hrs of Lab/Sonu Results Last 24 Hrs of Labs/Mics: Laboratory Tests 09/26/17 0926: ESR Westergren 12 H 09/26/17 0835: Creatine Kinase Cancelled 09/26/17 0608: Anion Gap 10, Estimated GFR > 60, BUN/Creatinine Ratio 27.8 H, Creatine Kinase 22 L, Vitamin B12 733, Folate 8.7, TSH 3.150, CBC w Diff NO MAN DIFF REQ, RBC 4.87, MCV 96.1 H, MCH 32.0 H, MCHC 33.3, RDW 16.9 H, MPV 11.5 H, Gran % 60.7 , Lymphocytes % 21.0, Monocytes % 11.1 H, Eosinophils % 6.7 H, Basophils % 0.5 , Absolute Granulocytes 3.5, Absolute Lymphocytes 1.2, Absolute Monocytes 0.6, Absolute Eosinophils 0.4, Absolute Basophils 0, HIV 1&2 Ab Western Blot NONREACTIVE 09/25/17 1230: Fluid WBC 420 H, Fld Mesothelial Cells 66, Fld Total RBCs Counted 8000 H 09/25/17 1230: Lymphocytes 23, % Normal PMNs 10, Misc Hematology Test 1, Fluid Glucose 140, Fluid Total Protein < 2.0, Fluid Albumin < 1.0, Fluid LDH 162, Fluid Amylase < 30 Microbiology 09/25 1230 BODY FLUID: Body Fluid Culture - RES 09/25 1230 BODY FLUID: Gram Stain - RES Assessment/Plan Assessment: Assessment: Patient is 77-year-old male with past medical history significant for aej-zgmjcni-ayesxzmow diabetes, hypertension, cecal polyp status post right colectomy, BPH, alcoholic liver cirrhosis, remote history of alcohol abuse 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 Assessment and plan 1. Community-acquired pneumonia -patient had right upper lobe pneumonia treated with IV ceftriaxone and azithromycin. he was started on cefuroxime 2 days ago at around 4 PM on the same day patient started developing fever MAXIMUM TEMPERATURE 104 with chills and appeared more lethargic. Stat chest x-ray blood culture, urine cultures, sputum culture, lactic acid CBC, BEP was done. Chest x -ray was negative. Cultures no growth so far. Initially started on ceftazidime and vancomycin but discontinued per ID because repeat chest x-ray didn't show any pneumonia. Patient continued having high fever and hence ultrasound abdomen and CAT scan of the head was taken ultrasound abdomen showed gallstones with gallbladder thickening with moderate ascites. Rodriguez sign was positive. In view of high suspicion for acute cholecystitis patient got HIDA/abdominal MRI/ MRCP, which didn't show any cirrhosis liver/cholecystitis/cholangitis .CT head negative. Surgery, ID, GI on board. On CTA patient has central lymphadenopathy. Malignancy needs to be ruled out. Seen by pulmonology who suggested outpatient PET scan. We reviewed all the images with the radiologist today. Ultrasound showed cirrhosis liver but the MRI showed normal liver echotexture, in view of portal hypertension [splenomegaly/ASCITIS) secondary causes of portal hypertension need to be ruled out. Hence we will take ultrasound Doppler to look for any portal vein thrombosis. Patient made nothing by mouth for the same procedure. 2. Hepatic encephalopathy-upon admission patient was confused. This can be secondary due to pneumonia/alcoholic liver disease. Patient mentation improved he is alert awake and conscious 2. 3. Patient had 3 bowel movements today, Which was watery. lactobacillus and loperamide was started. 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 This admission patient was on antibiotics. His diarrhea can be secondary due to C. difficile. C. difficile negative. We will send C. difficile PCR today. Will continue monitoring. Lactulose was held in view of diarrhea. Rifaximin was started by GI and we will continue the same. 4. Avoid NSAID, lactulose, hydrochlorothiazide, omeprazole Code-full code Diet-diabetic diet Physical therapy worked with him who suggested home physical therapy. Patient Daughter updated over the phone about his current condition today. Patient Daughter to be informed about any updates [phone] Problem List: 1. Ascites 2. Esophageal varices 3. Thrombocytopenia 4. Liver cirrhosis 5. Diabetes 6. colon polyp 7. Fever Pain Ratin Pain Location: NONE Pain Goal: Remain pain free Pain Plan: TYLENOL Tomorrow's Labs & Rationales: CBC,BEP DVT/Prophylaxis: mechanical
[2017-09-26 08:22] LABS: ABSOLUTE BASOPHIL COUNT 0 /CUMM (0.0-0.2); ABSOLUTE EOSINOPHIL COUNT 0.4 /CUMM (0.0-0.7); ABSOLUTE GRANULOCYTE CT 3.5 /CUMM (1.4-6.5); ABSOLUTE LYMPH COUNT 1.2 /CUMM (1.2-3.4); ABSOLUTE MONOCYTE COUNT 0.6 /CUMM (0.10-0.60); BASOPHIL % 0.5 % (0.0-2.0); EOSINOPHIL % 6.7 % (0-5); GRANULOCYTE % 60.7 % (42.2-75.2); HEMATOCRIT 46.8 % (42-52); MEAN CORPUSCULAR HGB CONC 33.3 G/DL (33.0-37.0); MEAN CORPUSCULAR VOLUME 96.1 FL (80.0-94.0); MEAN PLATELET VOLUME 11.5 FL (7.4-10.4); RBC DISTRIBUTION WIDTH 16.9 % (11.5-14.5); RED BLOOD CELL CT 4.87 /CUMM (4.70-6.10); WHITE BLOOD CELL COUNT 5.7 /CUMM (4.8-10.8)
[2017-09-26 09:44] VITALS: BP 122/60
[2017-09-26 09:57] LABS: PLATELET COUNT 47 /CUMM (130-400)
--- NOTE | 2017-09-26 13:32 | Cons- General Surgery ---
General Information and HPI Consulting Request Date of Consult: 09/25/17 Requested By: Josef Morocho MD History of Present Illness: cc:reason for consultation, fevr and RUQ tenderness HPI: 77-year-old diabetic ex-smoker with a history of cirrhosis, with varices, followed by gastroenterology has colonic polyps, and known gallstones, presented to the ER with a few days of continual fever, without concomitant abdominal pain nausea or vomiting. He was admitted with pneumonia, the fever persisted the question became whether or not it's because of his gallbladder. Patient is up in bed eating dinner denies any abdominal pain apparently he had some earlier today on palpation RUQ, patient denies a nausea or shortness of breath or prior episodes of abdominal pain or gallbladder problems. PFSH and ROS were reviewed Family history breast cancer sister daughter had thyroid cancer and father had hypertension, no gallbladder disease Allergies/Medications Allergies: Coded Allergies: Penicillins (UNKNOWN 11/17/15) Home Med List: Lactulose 20 GRAM/30 ML SOLUTION 20 GM PO TID HEPATIC ENCEPHALOPATHY Metformin HCl 1,000 MG TABLET 1 TAB PO BID DM (Reported) Nadolol 20 MG TABLET 1 TAB PO DAILY LIVER HEALTH (Reported) Omeprazole 20 MG CAPSULE.DR 1 CAP PO DAILY GI (Reported) Rifaximin (Xifaxan) 550 MG TABLET 550 MG PO BID hepatic encephalopathy Tamsulosin HCl 0.4 MG CAP.ER.24H 1 CAP PO DAILY PROSTATE (Reported) Valsartan/Hydrochlorothiazide (Valsartan-Hctz 80-12.5 MG Tab) 80 MG-12.5 MG TABLET 1 TAB PO DAILY HTN (Reported) Past History Medical History Blood Transfusion Hx: No Neurological: NONE EENT: NONE Cardiovascular: hypertension Respiratory: obstructive sleep apnea Gastrointestinal: esophageal varices cirrhosis ventral hernia Hepatic: NONE Renal: NONE Musculoskeletal: NONE Psychiatric: NONE Endocrine: diabetes Blood Disorders: thrombocytopenia Cancer(s): NONE SPOOL TENDER/Reproductive: NONE Surgical History Pertinent Surgical History: knee replacement (bilateral), colon polyp excision Psychosocial History Services at Home: None Smoking Status: Former Smoker ETOH Use: occasional use Illicit Drug Use: denies illicit drug use Review of Systems Review of Systems: Constitutional: As above ENMT: No sore throat Cardiovascular: No chest pain, palpitations or leg swelling Respiratory: No shortness of breath, cough, or sputum or dyspnea on exertion GI: No GERD or bleeding per rectum : No dysuria or hematuria Musculoskeletal: No new muscle weakness, bone or joint pain Skin / Breast: No jaundice, rashes or itching Psychiatric: No history of drug or alcohol abuse no depression or anxiety Hematologic / lymphatic system: No problems with excessive bleeding, bruising, or blood clots Exam & Diagnostic Data Vital Signs and I&O I reviewed Vital Signs Date Time Temp Pulse Resp B/P B/P Pulse O2 O2 Flow FiO2 Mean Ox Delivery Rate 09/26 0944 97.4 09/26 0944 100.4 68 20 122/60 95 Nasal 2.0L Cannula 09/26 0851 78 132/80 09/26 0800 94 Nasal 2.0L Cannula 09/26 0708 100.4 09/26 0707 98.7 66 18 130/83 97 Nasal Cannula 09/26 0200 100.1 09/26 0200 98.1 65 18 124/72 94 Nasal Cannula 09/26 0000 Nasal 2.0L Cannula 09/26 2123 98.5 09/26 2123 97.6 58 19 92/70 95 Nasal 2.0L Cannula 09/25 1600 Nasal 2.0L Cannula I reviewed Intake & Output 09/26 1600 09/26 0800 09/26 0000 09/25 1600 09/25 0800 09/25 0000 Intake Total 840 765 600 540 840 Output Total 150 400 450 600 Balance 690 365 150 540 240 Intake, IV 600 525 600 300 600 Intake, Oral 240 240 0 240 240 Number 0 1 0 Bowel Movements Output, Urine 150 400 450 600 Patient 202 lb 209 lb Weight Weight Bed scale Measurement Method Physical Exam: Constitutional: pleasant, no acute distress, conversant Eyes: sclera anicteric ENMT: ears and nose atraumatic, moist mucous membranes, good dentition, no lip lesions Neck: Supple, trachea is midline, no cervical or supraclavicular adenopathy and no palpable thyromegaly Cardiovascular: S1, S2, no murmurs, no peripheral edema Respiratory: clear to auscultation with normal respiratory effort and no intercostal retractions GI: abdomen soft, nontender, nondistended, no palpable hepatosplenomegaly Extremities / lymphatics: symmetrically warm, free range of motion no peripheral edema, no cervical, supraclavicular, axillary, or inguinal adenopathy Musculoskeletal: Did not evaluate gait and station, no digital cyanosis, good muscle strength and tone no atrophy, motor grossly 5 out of 5 throughout Skin: no jaundice, no rashes warm, nondiaphoretic, no areas of erythema or induration Psychiatric: mood and affect are appropriate and alert and oriented to person place and time Last 24 Hours of Labs: I reviewed Laboratory Tests 09/26 09/26 09/26 1209 0926 0835 Chemistry Ammonia (9 - 30 umol/L) 22 Creatine Kinase Cancelled Hematology ESR Westergren (0 - 10 MM) 12 H 09/26 0608 Chemistry Sodium (137 - 145 mmol/L) 144 Potassium (3.5 - 5.1 mmol/L) 4.3 Chloride (98 - 107 mmol/L) 111 H Carbon Dioxide (22 - 30 mmol/L) 22 Anion Gap (5 - 16) 10 BUN (9 - 20 mg/dL) 25 H Creatinine (0.7 - 1.2 mg/dL) 0.9 Estimated GFR (>60 ml/min) > 60 BUN/Creatinine Ratio (7 - 25 %) 27.8 H Creatine Kinase (55 - 170 U/L) 22 L Vitamin B12 (239 - 931 pg/mL) 733 Folate (2.76 - 20.0 ng/mL) 8.7 TSH (0.270 - 4.200 uIU/mL) 3.150 Hematology CBC w Diff NO MAN DIFF REQ WBC (4.8 - 10.8 /CUMM) 5.7 RBC (4.70 - 6.10 /CUMM) 4.87 Hgb (14.0 - 18.0 G/DL) 15.6 Hct (42 - 52 %) 46.8 MCV (80.0 - 94.0 FL) 96.1 H MCH (27.0 - 31.0 PG) 32.0 H MCHC (33.0 - 37.0 G/DL) 33.3 RDW (11.5 - 14.5 %) 16.9 H Plt Count (130 - 400 /CUMM) 47 L MPV (7.4 - 10.4 FL) 11.5 H Gran % (42.2 - 75.2 %) 60.7 Lymphocytes % (20.5 - 51.1 %) 21.0 Monocytes % (1.7 - 9.3 %) 11.1 H Eosinophils % (0 - 5 %) 6.7 H Basophils % (0.0 - 2.0 %) 0.5 Absolute Granulocytes (1.4 - 6.5 /CUMM) 3.5 Absolute Lymphocytes (1.2 - 3.4 /CUMM) 1.2 Absolute Monocytes (0.10 - 0.60 /CUMM) 0.6 Absolute Eosinophils (0.0 - 0.7 /CUMM) 0.4 Absolute Basophils (0.0 - 0.2 /CUMM) 0 Serology HIV 1&2 Ab Western Blot (NONREACTIVE) NONREACTIVE Assessment/Plan Assessment/Plan Studies I reviewed the CT scan on PACS myself from the on that when the gallbladder is not particularly dilated there is some ascites he had an ultrasound on the and earlier today the wall is a little thick but again the gallbladder is not dilated on the first ultrasound there was no Rodriguez's sign noted that there was today Labs were reviewed LFTs are chronically elevated in him but the bilirubin seems more so on this admission. Impression is fever history of gallstones and cirrhosis he doesn't really have the triad for cholangitis is very comfortable right now tolerating diet HIDA scan was negative I feel he does not have cholecystitis, gallstones are probably incidental, but if his LFTs continue to be elevated consider cholangiogram. Problem List: 1. Fever 2. Esophageal varices 3. History of colon polyps 4. Ascites 5. Elevated LFTs 6. Liver cirrhosis 7. Pneumonia 8. Diabetes Consult Acknowledgment - Thank you for your consult request.
[2017-09-26 14:01] VITALS: BP 112/60
--- NOTE | 2017-09-26 15:25 | PN- Infect Dx ---
Subjective Subjective: MAXIMUM TEMPERATURE 100.4. He does not offer any complaints. He had one soft stool overnight. Objective Last 24 Hrs of Vital Signs/I&O Vital Signs Date Time Temp Pulse Resp B/P B/P Pulse O2 O2 Flow FiO2 Mean Ox Delivery Rate 09/26 1402 97.6 09/26 1401 100.3 62 20 112/60 95 Nasal 2.0L Cannula 09/26 0944 97.4 09/26 0944 100.4 68 20 122/60 95 Nasal 2.0L Cannula 09/26 0851 78 132/80 09/26 0800 94 Nasal 2.0L Cannula 09/26 0708 100.4 09/26 0707 98.7 66 18 130/83 97 Nasal Cannula 09/26 0200 100.1 09/26 0200 98.1 65 18 124/72 94 Nasal Cannula 09/26 0000 Nasal 2.0L Cannula 09/26 2123 98.5 09/26 2123 97.6 58 19 92/70 95 Nasal 2.0L Cannula 09/25 1600 Nasal 2.0L Cannula Intake & Output 09/26 1600 09/26 0800 09/26 0000 Intake Total 840 840 765 Output Total 200 150 400 Balance 640 690 365 Intake, IV 600 600 525 Intake, Oral 240 240 240 Number 0 0 1 Bowel Movements Output, Urine 200 150 400 Patient 202 lb Weight Weight Bed scale Measurement Method Physical Exam Other Physical Findings: He appears lethargic but responsive in no acute distress Skin no rash Lungs bibasilar crackles Heart regular rhythm with no murmur Abdomen is soft, nontender with positive bowel sounds Extremities trace edema both lower extremities Results Last 24 Hours of Lab Results: Laboratory Tests 09/26 09/26 09/26 1209 0926 0835 Chemistry Ammonia (9 - 30 umol/L) 22 Creatine Kinase Cancelled Hematology ESR Westergren (0 - 10 MM) 12 H 09/26 0608 Chemistry Sodium (137 - 145 mmol/L) 144 Potassium (3.5 - 5.1 mmol/L) 4.3 Chloride (98 - 107 mmol/L) 111 H Carbon Dioxide (22 - 30 mmol/L) 22 Anion Gap (5 - 16) 10 BUN (9 - 20 mg/dL) 25 H Creatinine (0.7 - 1.2 mg/dL) 0.9 Estimated GFR (>60 ml/min) > 60 BUN/Creatinine Ratio (7 - 25 %) 27.8 H Creatine Kinase (55 - 170 U/L) 22 L Vitamin B12 (239 - 931 pg/mL) 733 Folate (2.76 - 20.0 ng/mL) 8.7 TSH (0.270 - 4.200 uIU/mL) 3.150 Hematology CBC w Diff NO MAN DIFF REQ WBC (4.8 - 10.8 /CUMM) 5.7 RBC (4.70 - 6.10 /CUMM) 4.87 Hgb (14.0 - 18.0 G/DL) 15.6 Hct (42 - 52 %) 46.8 MCV (80.0 - 94.0 FL) 96.1 H MCH (27.0 - 31.0 PG) 32.0 H MCHC (33.0 - 37.0 G/DL) 33.3 RDW (11.5 - 14.5 %) 16.9 H Plt Count (130 - 400 /CUMM) 47 L MPV (7.4 - 10.4 FL) 11.5 H Gran % (42.2 - 75.2 %) 60.7 Lymphocytes % (20.5 - 51.1 %) 21.0 Monocytes % (1.7 - 9.3 %) 11.1 H Eosinophils % (0 - 5 %) 6.7 H Basophils % (0.0 - 2.0 %) 0.5 Absolute Granulocytes (1.4 - 6.5 /CUMM) 3.5 Absolute Lymphocytes (1.2 - 3.4 /CUMM) 1.2 Absolute Monocytes (0.10 - 0.60 /CUMM) 0.6 Absolute Eosinophils (0.0 - 0.7 /CUMM) 0.4 Absolute Basophils (0.0 - 0.2 /CUMM) 0 Serology HIV 1&2 Ab Western Blot (NONREACTIVE) NONREACTIVE Last 24 Hours of Sonu Results: Ascitic fluid culture September 25 negative Sputum culture September 24 scant growth of yeast Blood cultures 2 September 23 negative Recent Imaging Studies: HIDA scan September 25 negative MRI of the abdomen September 25 reveals a physiologically distended gallbladder with no evidence for calculi; normal appearing biliary tract with no choledocholithiasis; tiny cystic changes in the distal pancreatic tail; mild to moderate ascites Assessment/Plan ID Impression: Stable, with low-grade fevers and a normal white blood cell count, off antibiotics, with workup for an infectious process so far negative, with blood and urine cultures negative, paracentesis not suggestive of SBP and with the HIDA scan and MRI negative for any biliary process. He does have increased eosinophils on his differential, suggesting a possible drug fever, perhaps secondary to the cephalosporins, which were discontinued 2 days ago. His exam and chest x-ray suggest mild fluid overload and he may benefit from diuresis ( note he was on Hydrochlorothiazide prior to admission). Suggestion: 1. Follow-up ascitic fluid culture 2. Follow-up stool C. difficile PCR 3. Further management with regard to possible fluid overload per Medicine 4. Continue to follow off antibiotics Marjan Sinclair MD will be covering until September 30
--- NOTE | 2017-09-26 17:13 | ULTRASOUND REPORT ---
EXAMINATION: Complete duplex ultrasound of the abdomen CLINICAL INDICATION: 77-year-old male with portal hypertension, ascites and splenomegaly. Evaluate for portal vein thrombosis. COMPARISON: Abdominal ultrasound 09/20/2017 TECHNIQUE: Duplex Doppler ultrasound and pulse wave Doppler with spectral analysis of the abdomen was performed. Evaluation is limited secondary to patient's inability to suspend respiration. FINDINGS: There is a small amount of ascites. The visualized liver is normal in size, with normal echogenicity. The main and extrahepatic portal vein demonstrate slow hepatopedal flow. Partial thrombosis cannot be excluded. The right and left main portal veins were poorly visualized and likely also demonstrates slow flow. The portal confluence is patent. The right, middle, and left hepatic veins demonstrates normal hepatofugal venous waveforms. The splenic vein demonstrates normal direction of flow. The hepatic artery demonstrates normal arterial waveforms. IMPRESSION: Limited evaluation. There is slow hepatopedal flow in the main portal vein. Partial thrombosis cannot be excluded on this study. Further evaluation can be obtained with CT of the abdomen with contrast in the portal venous phase.
[2017-09-26 22:21] VITALS: BP 122/68
[2017-09-27 04:00] VITALS: BP 132/64
[2017-09-27 06:11] LABS: C.DIFFICILE TOXIN B QL PCR NOT DETECTED (NOT DETECTED)
--- NOTE | 2017-09-27 07:10 | PN- Housestaff ---
See Addendum Penelope William MD 09/27/17 0710: Subjective Follow-up For: Fever of unknown origin Rule out portal vein thrombosis Altered mental status-improving Complaints: no complaints Subjective: Patient seen and examined at bedside. No overnight events. Patient denies cough, fever, chest pain, nausea, vomiting, abdominal pain, diarrhea, decreased urination. Review of Systems Constitutional: Reports: see HPI. Objective Last 24 Hrs of Vital Signs/I&O Vital Signs Date Time Temp Pulse Resp B/P B/P Pulse O2 O2 Flow FiO2 Mean Ox Delivery Rate 09/27 0959 98.0 68 20 138/80 94 Nasal 2.0L Cannula 09/27 0756 95 Nasal 2.0L Cannula 09/27 0400 97.5 58 20 132/64 94 09/27 0000 Nasal 2.0L Cannula 09/26 2221 97.9 60 20 122/68 93 Nasal 2.0L Cannula 09/26 1600 98 Nasal 2.0L Cannula 09/26 1402 97.6 09/26 1401 100.3 62 20 112/60 95 Nasal 2.0L Cannula Intake & Output 09/27 1600 09/27 0800 09/27 0000 Intake Total 820 Output Total 100 50 Balance 720 -50 Intake, IV 600 Intake, Oral 220 Output, Urine 100 50 Patient 209 lb Weight Physical Exam General Appearance: Alert, Oriented X3, Cooperative, No Acute Distress Cardiovascular: Regular Rate, Normal S1, Normal S2 Lungs: Clear to Auscultation Abdomen: Soft, No Tenderness, No Hepatospenomegaly Neurological: Strength at 5/5 X4 Ext, Normal Tone, Sensation Intact Extremities: No Cyanosis, No Edema, Normal Pulses Assessment/Plan Assessment: Patient is 77-year-old male with past medical history significant for zpm-wvrlerj-jefvbclfs diabetes, hypertension, cecal polyp status post right colectomy, BPH, alcoholic liver cirrhosis, remote history of alcohol abuse 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 Assessment and plan 1. Community-acquired pneumonia resolved * patient had right upper lobe pneumonia treated with IV ceftriaxone and azithromycin. he was started on cefuroxime but patient developed high-grade fever with diarrhea. Chest x-ray initially questionable for pneumonia and the repeat was negative. Cultures so far negative. Ultrasound abdomen/HIDA scan/ MRI abdomen-benign. Patient got ultrasound abdomen Doppler to rule out portal vein thrombosis. Report suggested decreased portal vein flow. Patient is plan for CT abdomen and pelvis with portal venous phase flow to rule out portal vein thrombosis which could be the secondary cause of his portal hypertension. There is also discrepancy in this ultrasound abdomen and CAT scan regarding cirrhotic appearance of his liver. * On CTA patient has central lymphadenopathy. Malignancy needs to be ruled out. Seen by pulmonology who suggested outpatient PET scan. We reviewed all the images with the radiologist, secondary causes of portal hypertension need to be ruled out. 2. Hepatic encephalopathy-upon admission patient was confused. This can be secondary due to pneumonia/alcoholic liver disease. Patient mentation improved he is alert awake and conscious 3. 3. Patient had 0 bowel movements last 24 hours. His diarrhea is improving. We 'll continue lactobacillus. 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 C. difficile PCR negative. We will continue lactulose, rifaximin, spironolactone. 4. Avoid NSAID, lactulose, hydrochlorothiazide, omeprazole Code-full code Diet-diabetic diet Physical therapy worked with him who suggested home physical therapy. Patient Daughter updated over the phone about his current condition. Patient Daughter to be informed about any updates [phone] Problem List: 1. Fever 2. History of colon polyps 3. Thrombocytopenia 4. Change in mental status 5. Pneumonia Pain Ratin Pain Location: none Pain Goal: Remain pain free Pain Plan: tylenol Tomorrow's Labs & Rationales: cbc,bep Tian Mena MD 09/27/176: Attending MD Review Statement Attending Statement Attending MD Statement: examined this patient, discuss w/resident/PA/SCROLL SAW OPERATOR, agreed w/resident/PA/SCROLL SAW OPERATOR, discussed with family, reviewed EMR data (avail), discussed with nursing, discussed with case mgmt, reviewed images, amended to note Attending Assessment/Plan: The patient was seen and discussed with house staff, radiology, infectious disease (Dr. Owusu), case management, and nursing. CT with portal imaging shows no evidence of portal vein obstruction/thrombosis. Prior doppler study represents false positive. He did receive dye load for the study and renal function is being followed. Unlikely to represent Lyme disease as per ID. Will add [place] to Lyme (JYOTI test negative). Consider repeat Lyme over next 2 weeks if still is concern. Will diurese with Spironolactone and give trial of Lactulose (although ammonia level was normal, suspect some encephalopathy). Attempted to contact GI and did not receive call back x 2. Will have the GI rounder see the patient tomorrow to advise regarding further Rx. Message left for daughter that I had not heard back from him. Dr. Owusu from [place] will also see the patient tomorrow.
[2017-09-27 09:29] LABS: ABSOLUTE BASOPHIL COUNT 0 /CUMM (0.0-0.2); ABSOLUTE EOSINOPHIL COUNT 0.3 /CUMM (0.0-0.7); ABSOLUTE GRANULOCYTE CT 3.4 /CUMM (1.4-6.5); ABSOLUTE MONOCYTE COUNT 0.7 /CUMM (0.10-0.60); BASOPHIL % 0.5 % (0.0-2.0); WHITE BLOOD CELL COUNT 5.8 /CUMM (4.8-10.8)
[2017-09-27 09:37] LABS: ABSOLUTE LYMPH COUNT 1.4 /CUMM (1.2-3.4); EOSINOPHIL % 4.7 % (0-5); GRANULOCYTE % 57.9 % (42.2-75.2); HEMATOCRIT 45.5 % (42-52); MEAN CORPUSCULAR HGB CONC 33.5 G/DL (33.0-37.0); MEAN CORPUSCULAR VOLUME 95.4 FL (80.0-94.0); MEAN PLATELET VOLUME 10.2 FL (7.4-10.4); RBC DISTRIBUTION WIDTH 16.8 % (11.5-14.5); RED BLOOD CELL CT 4.77 /CUMM (4.70-6.10)
[2017-09-27 09:40] LABS: PLATELET COUNT 51 /CUMM (130-400)
[2017-09-27 09:59] VITALS: BP 138/80
--- NOTE | 2017-09-27 12:02 | CT SCAN REPORT ---
EXAMINATION: CT ABDOMEN WITHOUT AND WITH CONTRAST CLINICAL INFORMATION: Fever, cirrhosis, ascites. Presumptive diagnosis of portal vein thrombosis. Evaluate portal vein. COMPARISON: Ultrasound of the abdomen with Doppler imaging dated 09/26/2017. MRI scan of the abdomen without contrast dated 09/25/2017. Multiple ultrasounds of the abdomen, most recent of which is dated 09/24/2017. CT scan of the abdomen and pelvis dated 09/20/2017. TECHNIQUE: Contiguous axial thin section helical images of the abdomen were performed before and after the administration of 95 mL Optiray 320 intravenous contrast. The data set was reformatted in the coronal and sagittal planes and reviewed on an independent workstation. DLP: 1027.84 mGy-cm FINDINGS: LUNG BASES: Small bilateral pleural effusions are seen, slightly progressive compared to MRI scan from 09/25/2017. Associated bibasilar atelectatic changes as seen in the lower lobes. There are also patchy areas of groundglass and reticular opacities seen throughout the remainder of the included lower lungs, likely representing atelectatic changes. Aortic valvular calcifications, mitral annular calcifications and mild aortic calcifications are seen. Dense calcifications along the lower right heart border/pericardium are also noted. LIVER, GALLBLADDER, AND BILIARY TREE: The liver is normal in size with a slightly lobulated contour seen, consistent with history of liver cirrhosis. No focal cystic or solid hepatic mass is seen. The main, right and left portal veins are well opacified and are patent. Several small layering calcifications is seen within the gallbladder, consistent with gallstones. Mild gallbladder wall enhancement is seen, nonspecific and likely reactive to the surrounding ascites. No intra or extrahepatic ductal dilatation is seen. There is a moderate volume of simple appearing ascites throughout the abdomen extending into the upper pelvis, unchanged from 09/20/2017. Small epigastric and perisplenic varices are noted. Recanalization of the umbilical vein is seen. PANCREAS: Diffusely atrophic and otherwise unremarkable. SPLEEN: Enlarged, measuring 17.1 cm longitudinally. No focal splenic mass. Splenic vein patent. Small perisplenic varices seen. ADRENAL GLANDS: Unremarkable. KIDNEYS AND URETERS: The kidneys are normal in size, shape, and attenuation. No hydronephrosis, hydroureter, or calculi seen. No perinephric stranding. There is a simple appearing 2.3 cm partially exophytic cyst in the mid left kidney, unchanged. GASTROINTESTINAL TRACT: The small and large bowel are unremarkable. The appendix is unremarkable. ABDOMINAL WALL: No significant hernia is appreciated. LYMPH NODES: Normal. VASCULAR: Moderate atherosclerotic calcifications of the aorta and of some of the branch vessels, including the right renal artery noted. Please also see above liver section above for other vascular findings. OSSEOUS STRUCTURES: Multilevel severe degenerative disc disease is seen in the lower thoracic and in the mid and lower lumbar spine. Small disc osteophyte complexes are seen projecting into the thecal sac in the mid and lower lumbar spine. Moderate spondylosis seen throughout the thoracolumbar spine. Moderate facet arthropathy seen throughout the mid and lower lumbar spine. Mild multilevel grade 1 degenerative subluxations seen in the lower lumbar spine. IMPRESSION: 1. Above findings are consistent with hepatic cirrhosis with portal venous hypertension as evidenced by splenomegaly, moderate volume ascites, upper abdominal varices and recanalization of the umbilical vein. 2. The main, right and left portal veins are normally enhancing and patent. No evidence of portal venous anastomosis. 3. Other findings previously noted, including atrophic pancreas, splenomegaly, left renal cyst and multilevel degenerative changes in the spine are again seen. Findings discussed with Dr. Mena 09/27/2017, about 11:40 AM.
--- NOTE | 2017-09-27 12:06 | PN- Infect Dx ---
Subjective Subjective: No fever. No CP/SOB. T max 100.3F previous day. Two loose BM's. Fatigued. Review of Systems Comments: 12 points reviewed as noted, otherwise neg. Objective Last 24 Hrs of Vital Signs/I&O Vital Signs Date Time Temp Pulse Resp B/P B/P Pulse O2 O2 Flow FiO2 Mean Ox Delivery Rate 09/27 0959 98.0 68 20 138/80 94 Nasal 2.0L Cannula 09/27 0756 95 Nasal 2.0L Cannula 09/27 0400 97.5 58 20 132/64 94 09/27 0000 Nasal 2.0L Cannula 09/26 2221 97.9 60 20 122/68 93 Nasal 2.0L Cannula 09/26 1600 98 Nasal 2.0L Cannula 09/26 1402 97.6 09/26 1401 100.3 62 20 112/60 95 Nasal 2.0L Cannula Intake & Output 09/27 1600 09/27 0800 09/27 0000 Intake Total 820 Output Total 100 50 Balance 720 -50 Intake, IV 600 Intake, Oral 220 Output, Urine 100 50 Patient 209 lb Weight Physical Exam Other Physical Findings: General Appearance: Alert, Oriented X3, Cooperative, No Acute Distress Cardiovascular: Regular Rate, Normal S1, Normal S2 Lungs: Clear to Auscultation Abdomen: Soft, No Tenderness, No Hepatospenomegaly Neurological: Strength at 5/5 X4 Ext, Normal Tone, Sensation Intact Extremities: No Cyanosis, No Edema, Normal Pulses Results Last 24 Hours of Lab Results: Laboratory Tests 09/27 09/26 0900 1209 Chemistry Sodium (137 - 145 mmol/L) 147 H Potassium (3.5 - 5.1 mmol/L) 4.4 Chloride (98 - 107 mmol/L) 110 H Carbon Dioxide (22 - 30 mmol/L) 27 Anion Gap (5 - 16) 10 BUN (9 - 20 mg/dL) 25 H Creatinine (0.7 - 1.2 mg/dL) 1.1 Estimated GFR (>60 ml/min) > 60 BUN/Creatinine Ratio (7 - 25 %) 22.7 Ammonia (9 - 30 umol/L) 22 Hematology CBC w Diff NO MAN DIFF REQ WBC (4.8 - 10.8 /CUMM) 5.8 RBC (4.70 - 6.10 /CUMM) 4.77 Hgb (14.0 - 18.0 G/DL) 15.3 Hct (42 - 52 %) 45.5 MCV (80.0 - 94.0 FL) 95.4 H MCH (27.0 - 31.0 PG) 32.0 H MCHC (33.0 - 37.0 G/DL) 33.5 RDW (11.5 - 14.5 %) 16.8 H Plt Count (130 - 400 /CUMM) 51 L MPV (7.4 - 10.4 FL) 10.2 Gran % (42.2 - 75.2 %) 57.9 Lymphocytes % (20.5 - 51.1 %) 24.7 Monocytes % (1.7 - 9.3 %) 12.2 H Eosinophils % (0 - 5 %) 4.7 Basophils % (0.0 - 2.0 %) 0.5 Absolute Granulocytes (1.4 - 6.5 /CUMM) 3.4 Absolute Lymphocytes (1.2 - 3.4 /CUMM) 1.4 Absolute Monocytes (0.10 - 0.60 /CUMM) 0.7 H Absolute Eosinophils (0.0 - 0.7 /CUMM) 0.3 Absolute Basophils (0.0 - 0.2 /CUMM) 0 Last 24 Hours of Sonu Results: SPEC #: [id number] RON: 09/24/171440 STATUS: COMP RECD: 09/24/[address]: Tila Morocho MD SOURCE: STOOL ENTR: 09/24/[address]: Josef Morocho MDC: Ever KENT,Maxi Thomas MD, [facility] ORDERED: C.DIFFICILE EIA COMMENT: Has pt had antimicrobial/antineoplastic rx in past 4-6wks? Y Has pt had abd pain, fever, or constipation? Y Procedure Result > C. DIFFICILE TOXIN A & B EIA Final 09/25/17 NEGATIVE FOR CLOSTRIDIUM DIFFICILE TOXINS A & B BY EIA SPEC #: [id number] RON: 09/25/17 STATUS: RES RECD: 09/25/1712[address] SUBM DR: Penelope William MD SOURCE: BODY FLUID ENTR: 09/25/17100[address] OTH[address]: Josef Morocho MDC: [facility] [place] Ever KENT,Maxi Thomas MD, [facility] ORDERED: BODY FLD CULTUR COMMENT: RECEIVED ~4 CC HAZY YELLOW FLUID IN RED TOP TUBE AND 1 SET BLOOD CULTURE BOTTLES Procedure Result > GRAM STAIN Final 09/25/17-1542 WHITE BLOOD CELLS FEW OTHER NO ORGANISMS SEEN > BODY FLUID CULTURE Preliminary 09/27/17-0831 NO GROWTH AFTER 2 DAYS Recent Imaging Studies: MRI of the abdomen September 25 reveals a physiologically distended gallbladder with no evidence for calculi; normal appearing biliary tract with no choledocholithiasis; tiny cystic changes in the distal pancreatic tail; mild to moderate ascites Assessment/Plan ID Impression: 77-year-old male with past medical history significant for non-insulin -dependent diabetes, hypertension, cecal polyp status post right colectomy, BPH, alcoholic liver cirrhosis, remote history of alcohol abuse sober since March 2017, basal cell carcinoma behind right ear status post excision presented to emergency room on 09/21 with worsening lethargy/weakness and intermittent fever for few days [employer]. 1. Community-acquired pneumonia resolved; right upper lobe pneumonia 2. While treated w/ cefuroxime but patient developed high-grade fever and diarrhea. 3. Normal white blood cell count, off antibiotics, with workup for an infectious process so far negative, with blood and urine cultures negative, paracentesis not suggestive of SBP and with the HIDA scan and MRI negative for any biliary process. He does have increased eosinophils on his differential, suggesting a possible drug fever, perhaps secondary to the cephalosporins, which were discontinued 2 days ago. His exam and chest x-ray suggest mild fluid overload. Of note c. diff assay neg (50% sensitivity) and ascitic fluid NGTD (at 2 d). Suggestion: 1. BC x2 off abx as well as UA/UC, if persistent fever. 3. Trend CBC. 4. Continue to follow off antibiotics
[2017-09-27] MEDS ORDERED: LACTULOSE20 GM/30 M PO (14:04)
[2017-09-27 15:30] VITALS: BP 132/62
[2017-09-27 19:14] VITALS: BP 122/78
[2017-09-28 02:57] VITALS: BP 128/68
[2017-09-28 06:00] VITALS: BP 140/80
[2017-09-28 08:33] LABS: ABSOLUTE BASOPHIL COUNT 0 /CUMM (0.0-0.2); ABSOLUTE EOSINOPHIL COUNT 0.3 /CUMM (0.0-0.7); ABSOLUTE GRANULOCYTE CT 4.1 /CUMM (1.4-6.5); ABSOLUTE LYMPH COUNT 1.1 /CUMM (1.2-3.4); ABSOLUTE MONOCYTE COUNT 0.7 /CUMM (0.10-0.60); BASOPHIL % 0.5 % (0.0-2.0); EOSINOPHIL % 4.9 % (0-5); GRANULOCYTE % 65.3 % (42.2-75.2); HEMATOCRIT 45.1 % (42-52); MEAN CORPUSCULAR HGB CONC 33.2 G/DL (33.0-37.0); MEAN CORPUSCULAR VOLUME 96.3 FL (80.0-94.0); MEAN PLATELET VOLUME 10.9 FL (7.4-10.4); RBC DISTRIBUTION WIDTH 17.4 % (11.5-14.5); RED BLOOD CELL CT 4.68 /CUMM (4.70-6.10); WHITE BLOOD CELL COUNT 6.2 /CUMM (4.8-10.8)
--- NOTE | 2017-09-28 09:14 | PN- Housestaff ---
See Addendum Subjective Follow-up For: Chronic diarrhea, FUO Subjective: No overnight events. PAtient is fatigued this morning and had an episode of diarrhea with incontinence. He has no SOB, CP, fevers, abd pain, N/V. Review of Systems Constitutional: Reports: see HPI. EENTM: Reports: no symptoms. Cardiovascular: Reports: no symptoms. Respiratory: Reports: no symptoms. Gastrointestinal: Reports: see HPI. Genitourinary: Reports: no symptoms. Musculoskeletal: Reports: no symptoms. Skin: Reports: no symptoms. Neurological/Psychological: Reports: no symptoms. Hematologic/Endocrine: Reports: no symptoms. Immunologic/Allergic: Reports: no symptoms. Objective Last 24 Hrs of Vital Signs/I&O Vital Signs Date Time Temp Pulse Resp B/P B/P Pulse O2 O2 Flow FiO2 Mean Ox Delivery Rate 09/28 0600 98.5 64 18 140/80 92 Nasal 2.0L Cannula 09/28 0257 98.0 64 18 128/68 91 09/28 0000 92 Nasal 2.0L Cannula 09/27 1914 97.8 60 18 122/78 92 Nasal 2.0L Cannula 09/27 1600 Nasal 2.0L Cannula 09/27 1530 97.5 57 20 132/62 93 Nasal Cannula 09/27 1130 Nasal 2.0L Cannula 09/27 0959 98.0 68 20 138/80 94 Nasal 2.0L Cannula Intake & Output 09/28 1600 09/28 0800 09/28 0000 Intake Total 240 300 Output Total Balance 240 300 Intake, Oral 240 300 Number 1 3 Bowel Movements Patient 94.829 kg Weight Physical Exam General Appearance: Alert, Oriented X3, Cooperative, No Acute Distress Cardiovascular: Regular Rate, Normal S1, Normal S2 Lungs: crackles Abdomen: Normal Bowel Sounds, Soft, No Tenderness Extremities: Normal Pulses Current Medications: Current Medications Sig/Dimple Start time Last Medication Dose Route Stop Time Status Admin Dextrose/Sodium 1,000 ML Q13H 09/23 1430 AC 09/27 Chloride IV 1034 Docusate Sodium 100 MG BID 09/19 1000 AC 09/27 PO 2125 Insulin Aspart 0 TIDAC 09/25 1700 AC SC Lactobacillus 1 CAP BID 09/23 1000 AC 09/27 Acidophilus PO 2126 Lactulose 20 GM TID 09/26 2200 AC 09/27 PO 2125 Loperamide HCl 2 MG DAILY PRN 09/24 1452 AC PO Losartan Potassium 50 MG DAILY 09/19 1000 AC 09/27 PO 1051 Nadolol 20 MG DAILY 09/19 1000 AC 09/27 PO 1052 Polyethylene Glycol 17 GM DAILY 09/19 1000 AC 09/23 PO 1052 Rifaximin 550 MG BID 09/20 2200 AC 09/27 PO 2126 Spironolactone 12.5 MG DAILY 09/26 1200 AC 09/27 PO 1052 Tamsulosin HCl 0.4 MG DAILY 09/19 1000 AC 09/27 PO 1050 Thiamine HCl 100 MG DAILY 09/26 1000 AC 09/27 PO 1049 Last 24 Hrs of Lab/Sonu Results Last 24 Hrs of Labs/Mics: Laboratory Tests 09/28/17 0616: Anion Gap 11, Estimated GFR > 60, BUN/Creatinine Ratio 23.3, CBC w Diff Pending, WBC Pending, RBC Pending, Hgb Pending, Hct Pending, MCV Pending, MCH Pending, MCHC Pending, RDW Pending, Plt Count Pending, MPV Pending, Gran % Pending, Lymphocytes % Pending, Monocytes % Pending, Eosinophils % Pending, Basophils % Pending, Absolute Granulocytes Pending, Absolute Lymphocytes Pending, Absolute Monocytes Pending, Absolute Eosinophils Pending, Absolute Basophils Pending Assessment/Plan Assessment: Patient is 77-year-old male with past medical history significant for hoz-rxbodzc-ehjfxhshn diabetes, hypertension, cecal polyp status post right colectomy, BPH, alcoholic liver cirrhosis, remote history of alcohol abuse 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 Assessment and plan 1. Community-acquired pneumonia resolved * patient had right upper lobe pneumonia treated with IV ceftriaxone and azithromycin. he was started on cefuroxime but patient developed high-grade fever with diarrhea. Chest x-ray initially questionable for pneumonia and the repeat was negative. Cultures so far negative. Ultrasound abdomen/HIDA scan/ MRI abdomen-benign. Patient got ultrasound abdomen Doppler to rule out portal vein thrombosis. Report suggested decreased portal vein flow. Patient is plan for CT abdomen and pelvis with portal venous phase flow to rule out portal vein thrombosis which could be the secondary cause of his portal hypertension. There is also discrepancy in this ultrasound abdomen and CAT scan regarding cirrhotic appearance of his liver. * On CTA patient has central lymphadenopathy. Malignancy needs to be ruled out. Seen by pulmonology who suggested outpatient PET scan. We reviewed all the images with the radiologist, secondary causes of portal hypertension need to be ruled out. 2. Hepatic encephalopathy-upon admission patient was confused. This can be secondary due to pneumonia/alcoholic liver disease. Patient mentation improved he is alert awake and conscious 3. We will follow-up with GI about potentially doing a cholangiogram today. We will also follow the Lyme titers. 3. Patient had diarrhea this morning. We'll continue lactobacillus. 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 C. difficile PCR negative. We will continue lactulose, rifaximin, spironolactone. 4. Avoid NSAID, hydrochlorothiazide, omeprazole Code-full code Diet-diabetic diet Physical therapy worked with him who suggested home physical therapy. Patient Daughter updated over the phone about his current condition. Patient Daughter to be informed about any updates [phone] Problem List: 1. Fever Pain Ratin Pain Location: no pain Pain Goal: Remain pain free Pain Plan: see a/p Tomorrow's Labs & Rationales: cbc, bep
[2017-09-28 10:00] VITALS: BP 128/60
[2017-09-28 10:18] LABS: PLATELET COUNT 54 /CUMM (130-400)
--- NOTE | 2017-09-28 13:13 | PN- Infect Dx ---
Subjective Subjective: Patient feeling very tired; no fever. No abd pain. No burning when voiding. No skin rash; no recent tick bites. Poor appetite. Review of Systems Comments: 12 points reviewed as noted, otherwise neg. Objective Last 24 Hrs of Vital Signs/I&O Vital Signs Date Time Temp Pulse Resp B/P B/P Pulse O2 O2 Flow FiO2 Mean Ox Delivery Rate 09/28 1027 64 128/60 09/28 1000 97.5 64 26 128/60 94 Nasal 2.0L Cannula 09/28 0800 Nasal 2.0L Cannula 09/28 0600 98.5 64 18 140/80 92 Nasal 2.0L Cannula 09/28 0257 98.0 64 18 128/68 91 09/28 0000 92 Nasal 2.0L Cannula 09/27 1914 97.8 60 18 122/78 92 Nasal 2.0L Cannula 09/27 1600 Nasal 2.0L Cannula 09/27 1530 97.5 57 20 132/62 93 Nasal Cannula Intake & Output 09/28 1600 09/28 0800 09/28 0000 Intake Total 240 300 Output Total Balance 240 300 Intake, Oral 240 300 Number 1 3 Bowel Movements Patient 209 lb Weight Physical Exam Other Physical Findings: General Appearance: Alert, Oriented X3, Cooperative, No Acute Distress Skin: pale HEENT AT/sclera anicteric Neck No JVD Cardiovascular: Regular Rate, Normal S1, Normal S2 Lungs: Clear to Auscultation Abdomen: Soft, No Tenderness, No Hepatospenomegaly Neurological: Strength at 5/5 X4 Ext, Normal Tone, Sensation Intact Extremities: No Cyanosis, No Edema, Normal Pulses Results Last 24 Hours of Lab Results: Laboratory Tests 09/28 0616 Chemistry Sodium (137 - 145 mmol/L) 146 H Potassium (3.5 - 5.1 mmol/L) 4.0 Chloride (98 - 107 mmol/L) 110 H Carbon Dioxide (22 - 30 mmol/L) 25 Anion Gap (5 - 16) 11 BUN (9 - 20 mg/dL) 21 H Creatinine (0.7 - 1.2 mg/dL) 0.9 Estimated GFR (>60 ml/min) > 60 BUN/Creatinine Ratio (7 - 25 %) 23.3 Hematology CBC w Diff MAN DIFF ORDERED WBC (4.8 - 10.8 /CUMM) 6.2 RBC (4.70 - 6.10 /CUMM) 4.68 L Hgb (14.0 - 18.0 G/DL) 15.0 Hct (42 - 52 %) 45.1 MCV (80.0 - 94.0 FL) 96.3 H MCH (27.0 - 31.0 PG) 32.0 H MCHC (33.0 - 37.0 G/DL) 33.2 RDW (11.5 - 14.5 %) 17.4 H Plt Count (130 - 400 /CUMM) 54 L MPV (7.4 - 10.4 FL) 10.9 H Gran % (42.2 - 75.2 %) 65.3 Lymphocytes % (20.5 - 51.1 %) 18.5 L Monocytes % (1.7 - 9.3 %) 10.8 H Eosinophils % (0 - 5 %) 4.9 Basophils % (0.0 - 2.0 %) 0.5 Absolute Granulocytes (1.4 - 6.5 /CUMM) 4.1 Segmented Neutrophils (42.2 - 75.2 %) 60 Band Neutrophils (0.0 - 5.0 %) 5 Absolute Lymphocytes (1.2 - 3.4 /CUMM) 1.1 L Lymphocytes (20.5 - 51.1 %) 15 L Monocytes (1.7 - 9.3 %) 13 H Absolute Monocytes (0.10 - 0.60 /CUMM) 0.7 H Eosinophils (0 - 5.0 %) 6 H Absolute Eosinophils (0.0 - 0.7 /CUMM) 0.3 Basophils (0.0 - 2.0 %) 1 Absolute Basophils (0.0 - 0.2 /CUMM) 0 Platelet Estimate (ADEQUATE) DECREASED Anisocytosis 1+ Last 24 Hours of Sonu Results: RECD: 09/25/17-[address]: Stewart KENT,Penelope SOURCE: BODY FLUID ENTR: 09/25/17-[address]: Rashawn KENT,Josef SPDESC: ASCITES FL Ever KENT,Maxi Thomas MD, [facility] ORDERED: BODY FLD CULTUR COMMENT: RECEIVED ~4 CC HAZY YELLOW FLUID IN RED TOP TUBE AND 1 SET BLOOD CULTURE BOTTLES Procedure Result > GRAM STAIN Final 09/25/17-1542 WHITE BLOOD CELLS FEW OTHER NO ORGANISMS SEEN Recent Imaging Studies: CT A/P 09/27 IMPRESSION: 1. Above findings are consistent with hepatic cirrhosis with portal venous hypertension as evidenced by splenomegaly, moderate volume ascites, upper abdominal varices and recanalization of the umbilical vein. 2. The main, right and left portal veins are normally enhancing and patent. No evidence of portal venous anastomosis. 3. Other findings previously noted, including atrophic pancreas, splenomegaly, left renal cyst and multilevel degenerative changes in the spine are again seen. Findings discussed with Dr. Mena 09/27/2017, about 11:40 AM. DICTATED BY: Marizol Greco MD DATE/TIME DICTATED:09/27/171018 WASTEWATER TREATMENT ENGINEER:HOLA DATE/TIME TRANSCRIBED:09/27/171018 Assessment/Plan ID Impression: 77-year-old male with past medical history significant for non-insulin -dependent diabetes, hypertension, cecal polyp status post right colectomy, BPH, alcoholic liver cirrhosis, history of alcohol abuse sober since March 2017, basal cell carcinoma behind right ear status post excision presented to emergency room on 09/21 with worsening lethargy/weakness and intermittent fever for few days [employer]. 1. Remains afebrile past 2 days after being treated for CAP (RUL pneumonia);c/o fatigue; CTA performed during this admission revealed prominent precarina and subcarinal adenopathy (further evaluation warranted transbronchial bx or PET scan). 2. Chronic diarrhea. 3. Normal white blood cell count, persitent thrombocytopenia; h/o splenomegaly; r/o tick borne dx per team (appears unlikely) Suggestion: 1. Continue to follow off antibiotics. 2. Please call if fever. 3. If persistent diarrhea WBC in stool, also giardia and cryptosporidium antigen. 4. Monitor CBC. Would consider obtaining uric acid level, LDH and ionized calcium with next blood work.
[2017-09-28 14:00] VITALS: BP 128/60
[2017-09-28 18:06] VITALS: BP 154/82
[2017-09-28 22:15] VITALS: BP 159/83
[2017-09-29 07:06] VITALS: BP 140/81
--- NOTE | 2017-09-29 08:05 | PN- Housestaff ---
See Addendum Subjective Follow-up For: Chronic diarrhea, fever of unknown origin, altered mental status Subjective: No overnight events. The patient feels very tired this morning is reporting poor appetite. He had 2 bowel movements in the past 24 hours. He has no chest pain, shortness of breath, abdominal pain, or other issues. Review of Systems Constitutional: Reports: see HPI. EENTM: Reports: no symptoms. Cardiovascular: Reports: no symptoms. Respiratory: Reports: no symptoms. Gastrointestinal: Reports: see HPI. Genitourinary: Reports: no symptoms. Musculoskeletal: Reports: no symptoms. Skin: Reports: no symptoms. Neurological/Psychological: Reports: no symptoms. Hematologic/Endocrine: Reports: no symptoms. Immunologic/Allergic: Reports: no symptoms. Objective Last 24 Hrs of Vital Signs/I&O Vital Signs Date Time Temp Pulse Resp B/P B/P Pulse O2 O2 Flow FiO2 Mean Ox Delivery Rate 09/29 0706 97.9 62 20 140/81 94 Room Air 09/29 0000 Nasal 2.0L Cannula 09/28 2215 97.8 67 20 159/83 94 Nasal 2.0L Cannula 09/28 1806 98.8 68 22 154/82 96 Room Air 09/28 1600 94 Nasal 2.0L Cannula 09/28 1400 97.6 63 24 128/60 95 Nasal 2.0L Cannula 09/28 1027 64 128/60 09/28 1000 97.5 64 26 128/60 94 Nasal 2.0L Cannula Intake & Output 09/29 1600 09/29 0800 09/29 0000 Intake Total 480 480 Output Total Balance 480 480 Intake, Oral 480 480 Number 2 Bowel Movements Patient 97.239 kg Weight Physical Exam General Appearance: Alert, Oriented X3, Cooperative, No Acute Distress Cardiovascular: Regular Rate, Normal S1, Normal S2 Lungs: crackles at base Abdomen: Normal Bowel Sounds, Soft, No Tenderness Current Medications: Current Medications Sig/Dimple Start time Last Medication Dose Route Stop Time Status Admin Dextrose/Sodium 1,000 ML Q13H 09/23 1430 DC 09/27 Chloride IV 1034 Docusate Sodium 100 MG BID 09/19 1000 AC 09/28 PO 213 Insulin Aspart 0 TIDAC 09/25 1700 AC SC Lactobacillus 1 CAP BID 09/23 1000 AC 09/28 Acidophilus PO 2135 Lactulose 20 GM TID 09/26 2200 AC 09/28 PO 2136 Loperamide HCl 2 MG DAILY PRN 09/24 1452 AC PO Losartan Potassium 50 MG DAILY 09/19 1000 AC 09/28 PO 1027 Nadolol 20 MG DAILY 09/19 1000 AC 09/28 PO 1027 Polyethylene Glycol 17 GM DAILY 09/19 1000 AC 09/23 PO 1052 Rifaximin 550 MG BID 09/20 2200 AC 09/28 PO 2136 Spironolactone 12.5 MG DAILY 09/26 1200 AC 09/28 PO 1026 Tamsulosin HCl 0.4 MG DAILY 09/19 1000 AC 09/28 PO 1027 Thiamine HCl 100 MG DAILY 09/26 1000 AC 09/28 PO 1027 Last 24 Hrs of Lab/Sonu Results Last 24 Hrs of Labs/Mics: Laboratory Tests 09/29/17 0610: Ionized Calcium Pending 09/29/17 0610: Sodium Pending, Potassium Pending, Chloride Pending, Carbon Dioxide Pending, Anion Gap Pending, BUN Pending, Creatinine Pending, BUN/Creatinine Ratio Pending , Uric Acid Pending, Lactate Dehydrogenase Pending, CBC w Diff Pending, WBC Pending, RBC Pending, Hgb Pending, Hct Pending, MCV Pending, MCH Pending, MCHC Pending, RDW Pending, Plt Count Pending, MPV Pending Assessment/Plan Assessment: Patient is 77-year-old male with past medical history significant for gdy-tpawwsl-rhqjfgowm diabetes, hypertension, cecal polyp status post right colectomy, BPH, alcoholic liver cirrhosis, remote history of alcohol abuse 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 Assessment and plan 1. Community-acquired pneumonia resolved * patient had right upper lobe pneumonia treated with IV ceftriaxone and azithromycin. he was started on cefuroxime but patient developed high-grade fever with diarrhea. Chest x-ray initially questionable for pneumonia and the repeat was negative. Cultures so far negative. Ultrasound abdomen/HIDA scan/ MRI abdomen-benign. Patient got ultrasound abdomen Doppler to rule out portal vein thrombosis. Report suggested decreased portal vein flow. Patient is plan for CT abdomen and pelvis with portal venous phase flow to rule out portal vein thrombosis which could be the secondary cause of his portal hypertension. There is also discrepancy in this ultrasound abdomen and CAT scan regarding cirrhotic appearance of his liver. * On CTA patient has central lymphadenopathy. Malignancy needs to be ruled out. Seen by pulmonology who suggested outpatient PET scan. We reviewed all the images with the radiologist, secondary causes of portal hypertension need to be ruled out. 2. Hepatic encephalopathy-upon admission patient was confused. This can be secondary due to pneumonia/alcoholic liver disease. Patient mentation improved he is alert awake and conscious 3. No further fevers in the past 48 hours. Appreciate GI and infectious disease recommendations. We will also follow the Lyme titers. We will titrate lactulose to around 3 bowel movements per day. 3. Patient had diarrhea this morning. We'll continue lactobacillus. 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 C. difficile PCR negative. We will continue lactulose, rifaximin, spironolactone. 4. Avoid NSAID, hydrochlorothiazide, omeprazole Code-full code Diet-diabetic diet Physical therapy worked with him who suggested home physical therapy. Patient Daughter updated over the phone about his current condition. Patient Daughter to be informed about any updates [phone] Problem List: 1. Fever Pain Ratin Pain Location: no Pain Goal: Remain pain free Pain Plan: see a/p Tomorrow's Labs & Rationales: cbc, bep
[2017-09-29 08:14] LABS: ABSOLUTE BASOPHIL COUNT 0 /CUMM (0.0-0.2); ABSOLUTE EOSINOPHIL COUNT 0.4 /CUMM (0.0-0.7); ABSOLUTE GRANULOCYTE CT 4.3 /CUMM (1.4-6.5); ABSOLUTE LYMPH COUNT 1.3 /CUMM (1.2-3.4); ABSOLUTE MONOCYTE COUNT 0.6 /CUMM (0.10-0.60); BASOPHIL % 0.7 % (0.0-2.0); EOSINOPHIL % 5.8 % (0-5); HEMATOCRIT 48.1 % (42-52); MEAN CORPUSCULAR HGB CONC 33.3 G/DL (33.0-37.0); MEAN PLATELET VOLUME 11.5 FL (7.4-10.4); PLATELET COUNT 60 /CUMM (130-400); RBC DISTRIBUTION WIDTH 16.6 % (11.5-14.5); RED BLOOD CELL CT 5.01 /CUMM (4.70-6.10); WHITE BLOOD CELL COUNT 6.6 /CUMM (4.8-10.8)
--- NOTE | 2017-09-29 08:44 | PN- Infect Dx ---
Subjective Subjective: No fever. Fatigued. Two loose BM's reported. Review of Systems Comments: 12 points reviewed as noted, otherwise negative. Objective Last 24 Hrs of Vital Signs/I&O Vital Signs Date Time Temp Pulse Resp B/P B/P Pulse O2 O2 Flow FiO2 Mean Ox Delivery Rate 09/29 0706 97.9 62 20 140/81 94 Room Air 09/29 0000 Nasal 2.0L Cannula 09/28 2215 97.8 67 20 159/83 94 Nasal 2.0L Cannula 09/28 1806 98.8 68 22 154/82 96 Room Air 09/28 1600 94 Nasal 2.0L Cannula 09/28 1400 97.6 63 24 128/60 95 Nasal 2.0L Cannula 09/28 1027 64 128/60 09/28 1000 97.5 64 26 128/60 94 Nasal 2.0L Cannula Intake & Output 09/29 1600 09/29 0800 09/29 0000 Intake Total 480 480 Output Total Balance 480 480 Intake, Oral 480 480 Number 2 Bowel Movements Patient 214 lb Weight Physical Exam Other Physical Findings: General Appearance: Alert, Oriented X3, Cooperative, No Acute Distress Cardiovascular: Regular Rate, Normal S1, Normal S2 Lungs: Clear to Auscultation Abdomen: Soft, No Tenderness, No Hepatospenomegaly Neurological: Strength at 5/5 X4 Ext, Normal Tone, Sensation Intact Extremities: No Cyanosis, No Edema, Normal Pulses Results Last 24 Hours of Lab Results: Laboratory Tests 09/29 09/29 0610 0610 Chemistry Sodium Pending Potassium Pending Chloride Pending Carbon Dioxide Pending Anion Gap Pending BUN Pending Creatinine Pending BUN/Creatinine Ratio Pending Uric Acid Pending Ionized Calcium Pending Lactate Dehydrogenase Pending Hematology CBC w Diff Pending WBC Pending RBC Pending Hgb Pending Hct Pending MCV Pending MCH Pending MCHC Pending RDW Pending Plt Count Pending MPV Pending Last 24 Hours of Sonu Results: reviewed Recent Imaging Studies: [email or web address] Assessment/Plan ID Impression: 77-year-old male with past medical history significant for non-insulin -dependent diabetes, hypertension, cecal polyp status post right colectomy, BPH, alcoholic liver cirrhosis, history of alcohol abuse sober since March 2017, basal cell carcinoma behind right ear status post excision presented to emergency room on 09/21 with worsening lethargy/weakness and intermittent fever for few days [employer]. 1. Remains afebrile after being treated for CAP (RUL pneumonia); CTA performed during this admission revealed prominent precarina and subcarinal adenopathy ( further evaluation warranted transbronchial bx or PET scan). 2. Chronic diarrhea. 3. Normal white blood cell count, persitent thrombocytopenia; h/o splenomegaly; r/o tick borne dx per team (unlikely) Suggestion: 1. Continue to follow off antibiotics. 2. Please call if fever. 3. If persistent diarrhea WBC in stool, also giardia and cryptosporidium antigen.
[2017-09-29 14:37] VITALS: BP 130/74
[2017-09-29 18:30] VITALS: BP 120/76
[2017-09-29 21:14] VITALS: BP 128/76
[2017-09-30 01:45] VITALS: BP 118/84
[2017-09-30 05:57] VITALS: BP 138/78
--- NOTE | 2017-09-30 06:24 | PN- Housestaff ---
Penelope William MD 09/30/17 0623: Subjective Follow-up For: FEVER,CAP Complaints: WEAKNESS Subjective: PT SEEN AND EXAMINED AT BEDSIDE. No over night events. c/o feeling weak. denies fever, headache, abd pain , nausea, vomitting, chest pain ,cough. Review of Systems Constitutional: Reports: weakness. Cardiovascular: Reports: no symptoms. Respiratory: Reports: no symptoms. Gastrointestinal: Reports: no symptoms. Genitourinary: Reports: no symptoms. Musculoskeletal: Reports: no symptoms. Objective Last 24 Hrs of Vital Signs/I&O Vital Signs Date Time Temp Pulse Resp B/P B/P Pulse O2 O2 Flow FiO2 Mean Ox Delivery Rate 09/30 0557 98.1 76 20 138/78 94 Nasal 2.0L Cannula 09/30 0145 98.3 73 22 118/84 94 Nasal 2.0L Cannula 09/30 0000 94 Nasal 2.0L Cannula 09/29 2114 98.0 71 18 128/76 94 Nasal 2.0L Cannula 09/29 1830 98.0 69 20 120/76 95 Nasal 2.0L Cannula 09/29 1600 Nasal 2.0L Cannula 09/29 1437 97.4 77 20 130/74 95 Nasal Cannula 09/29 1200 95 Nasal 2.0L Cannula 09/29 1028 68 128/68 Intake & Output 09/30 1600 09/30 0800 09/30 0000 Intake Total 240 Output Total 450 Balance 240 -450 Intake, Oral 240 Number 2 Bowel Movements Output, Urine 450 Patient 214 lb Weight Physical Exam General Appearance: Alert, Cooperative, ORIENTED X 2 , appears lethargic.on 2 L of nasal oxygen. Cardiovascular: Regular Rate, Normal S1, Normal S2, No Murmurs Lungs: bilateral crackles Abdomen: Normal Bowel Sounds, Soft, No Tenderness, No Hepatospenomegaly Neurological: Normal Speech, Strength at 5/5 X4 Ext, Normal Tone, Sensation Intact Extremities: No Cyanosis, No Edema, Normal Pulses Current Medications: Current Medications Sig/Dimple Start time Last Medication Dose Route Stop Time Status Admin Dextrose/Sodium 1,000 ML Q20H 09/29 1030 DC 09/29 Chloride IV 09/30 06 1044 Docusate Sodium 100 MG BID 09/19 1000 AC 09/28 PO 2136 Insulin Aspart 0 TIDAC 09/25 1700 AC 09/29 SC 1702 Lactobacillus 1 CAP BID 09/23 1000 AC 09/29 Acidophilus PO 0 Lactulose 20 GM BID 09/30 1000 AC PO Lactulose 20 GM TID 09/260 DC 09/29 PO 211 Losartan Potassium 50 MG DAILY 09/19 1000 AC 09/29 PO 1028 Nadolol 20 MG DAILY 09/19 1000 AC 09/29 PO 1028 Polyethylene Glycol 17 GM DAILY 09/19 1000 AC 09/23 PO 1052 Rifaximin 550 MG BID 09/20 2199 AC 09/29 PO 2110 Spironolactone 12.5 MG DAILY 09/26 1200 AC 09/29 PO 1029 Tamsulosin HCl 0.4 MG DAILY 09/19 1000 AC 09/29 PO 1028 Thiamine HCl 100 MG DAILY 09/26 1000 AC 09/29 PO 1028 Last 24 Hrs of Lab/Sonu Results Last 24 Hrs of Labs/Mics: Laboratory Tests 09/30/17711: Anion Gap 8, Estimated GFR > 60, BUN/Creatinine Ratio 30.0 H, CBC w Diff NO MAN DIFF REQ, RBC 4.80, MCV 96.5 H, MCH 31.8 H, MCHC 33.0, RDW 16.8 H, MPV 10.9 H, Gran % 71.2, Lymphocytes % 14.7 L, Monocytes % 8.7, Eosinophils % 4.8, Basophils % 0.6, Absolute Granulocytes 5.8, Absolute Lymphocytes 1.2, Absolute Monocytes 0.7 H, Absolute Eosinophils 0.4, Absolute Basophils 0.1 Assessment/Plan Assessment: Patient is 77-year-old male with past medical history significant for ves-gojfthl-hztsdwpnc diabetes, hypertension, cecal polyp status post right colectomy, BPH, alcoholic liver cirrhosis, remote history of alcohol abuse 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 Assessment and plan 1. Community-acquired pneumonia resolved * patient had right upper lobe pneumonia treated with IV ceftriaxone and azithromycin. he was started on cefuroxime but patient developed high-grade fever with diarrhea. Chest x-ray initially questionable for pneumonia and the repeat was negative. Cultures so far negative. Ultrasound abdomen/HIDA scan/ MRI abdomen-benign. Patient got ultrasound abdomen Doppler to rule out portal vein thrombosis. Report suggested decreased portal vein flow. Patient had a CT abdomen and pelvis with portal venous phase flow which was negative for portal vein thrombosis. There is also discrepancy in this ultrasound abdomen and CAT scan regarding cirrhotic appearance of his liver. We reviewed all the images with the radiologist, secondary causes of portal hypertension need to be ruled out. * On CTA patient has central lymphadenopathy. Malignancy needs to be ruled out. Seen by pulmonology who suggested outpatient PET scan. * On examination of lungs -has bilateral crackles. We did a chest x-ray which showed mild pulmonary edema with by basilar subsegmental atelectasis, in view of fluid overload Lasix 20 mg IV once given. We will do a repeat chest x-ray in the morning. 2. Hepatic encephalopathy/fever * upon admission patient was confused. This can be secondary due to pneumonia/ alcoholic liver disease. Patient mentation improved, he is alert awake and conscious 3. * No further fevers in the past 48 hours. Appreciate infectious disease recommendations. W We will titrate lactulose to around 3 bowel movements per day. 3. Chronic diarrhea * this can be secondary due to right hemicolectomy done for colonic polyp. Patient initially had multiple diarrheal episode which was controlled with lactobacillus and loperamide. C. difficile was negative. Patient diarrhea improved. Patient had a bowel movement in last 24 hours. We will reduce the lactulose to twice a day, continue rifaximin, and increase the dose of spironolactone [patient abdomen size appears to be increased compared to last week]. 4. Avoid NSAID, hydrochlorothiazide, omeprazole Code-full code Diet-diabetic diet Physical therapy worked with him who suggested short-term rehabilitation. Patient Daughter to be informed about any updates [phone] Problem List: 1. Fever 2. Esophageal varices 3. History of colon polyps 4. Ascites 5. Elevated LFTs 6. Thrombocytopenia Pain Ratin Pain Location: none Pain Goal: Remain pain free Pain Plan: tylenol Tomorrow's Labs & Rationales: cbc,bep Nae Kothari MD 09/30/17 1344: Attending MD Review Statement Attending Statement Attending MD Statement: examined this patient, discuss w/resident/PA/WOODWORKING MACHINE OFFBEARER, agreed w/resident/PA/WOODWORKING MACHINE OFFBEARER, reviewed EMR data (avail), discussed with nursing, discussed with case mgmt, reviewed images, amended to note Attending Assessment/Plan: Patient seen and examined, denies any complaints. He wants to go home. Denies any apin, still requiring O2. Vital Signs Date Time Temp Pulse Resp B/P B/P Pulse O2 O2 Flow FiO2 Mean Ox Delivery Rate 09/30 0937 98.1 76 20 138/78 / 0936 98.1 76 20 138/78 09/30 0936 98.1 76 20 138/78 / 0557 98.1 76 20 138/78 94 Nasal 2.0L Cannula 09/30 0145 98.3 73 22 118/84 94 Nasal 2.0L Cannula 09/30 0000 94 Nasal 2.0L Cannula 09/29 2114 98.0 71 18 128/76 94 Nasal 2.0L Cannula 09/29 1830 98.0 69 20 120/76 95 Nasal 2.0L Cannula 09/29 1600 Nasal 2.0L Cannula 09/29 1437 97.4 77 20 130/74 95 Nasal Cannula on exam; awak,e nad. cv; s1,s2, rrr resp; b/l carckles. abd; soft, nt, bs+ ext; no edema. Laboratory Tests 09/30 07 Chemistry Sodium (137 - 145 mmol/L) 142 Potassium (3.5 - 5.1 mmol/L) 4.2 Chloride (98 - 107 mmol/L) 107 Carbon Dioxide (22 - 30 mmol/L) 27 Anion Gap (5 - 16) 8 BUN (9 - 20 mg/dL) 24 H Creatinine (0.7 - 1.2 mg/dL) 0.8 Estimated GFR (>60 ml/min) > 60 BUN/Creatinine Ratio (7 - 25 %) 30.0 H Hematology CBC w Diff NO MAN DIFF REQ WBC (4.8 - 10.8 /CUMM) 8.1 RBC (4.70 - 6.10 /CUMM) 4.80 Hgb (14.0 - 18.0 G/DL) 15.3 Hct (42 - 52 %) 46.3 MCV (80.0 - 94.0 FL) 96.5 H MCH (27.0 - 31.0 PG) 31.8 H MCHC (33.0 - 37.0 G/DL) 33.0 RDW (11.5 - 14.5 %) 16.8 H Plt Count (130 - 400 /CUMM) 56 L MPV (7.4 - 10.4 FL) 10.9 H Gran % (42.2 - 75.2 %) 71.2 Lymphocytes % (20.5 - 51.1 %) 14.7 L Monocytes % (1.7 - 9.3 %) 8.7 Eosinophils % (0 - 5 %) 4.8 Basophils % (0.0 - 2.0 %) 0.6 Absolute Granulocytes (1.4 - 6.5 /CUMM) 5.8 Absolute Lymphocytes (1.2 - 3.4 /CUMM) 1.2 Absolute Monocytes (0.10 - 0.60 /CUMM) 0.7 H Absolute Eosinophils (0.0 - 0.7 /CUMM) 0.4 Absolute Basophils (0.0 - 0.2 /CUMM) 0.1 A/P; 77 y/o M with pmh sig for vto-iaenylr-thenahuhz diabetes, hypertension, cecal polyp status post right colectomy, BPH, alcoholic liver cirrhosis, remote history of alcohol abuse 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 Also developed acute kidney injury, also has cirrhosis, imaging studies were negative for portal vein thrombosis. Patient now has crackles on bilateral lung exam and he still hypoxic. Chest x-rays consistent with mild pulmonary edema. With start the patient on IV Lasix at [facility] discussed with Dr. Ram from GI and he recommends increasing the dose of spironolactone and may be adding a small dose of Lasix on daily basis while carefully watching his creatinine and electrolytes. Continue other current treatment. Patient should be getting out of bed to chair. Use of incentive spirometry was encouraged. DVT px; ALPS 2/2 to thrombocytopenia. Left a msg for daughter.
[2017-09-30 08:13] LABS: ABSOLUTE BASOPHIL COUNT 0.1 /CUMM (0.0-0.2); ABSOLUTE EOSINOPHIL COUNT 0.4 /CUMM (0.0-0.7); ABSOLUTE GRANULOCYTE CT 5.8 /CUMM (1.4-6.5); ABSOLUTE LYMPH COUNT 1.2 /CUMM (1.2-3.4); ABSOLUTE MONOCYTE COUNT 0.7 /CUMM (0.10-0.60); BASOPHIL % 0.6 % (0.0-2.0); EOSINOPHIL % 4.8 % (0-5); GRANULOCYTE % 71.2 % (42.2-75.2); HEMATOCRIT 46.3 % (42-52); MEAN CORPUSCULAR HGB 31.8 PG (27.0-31.0); MEAN CORPUSCULAR VOLUME 96.5 FL (80.0-94.0); MEAN PLATELET VOLUME 10.9 FL (7.4-10.4); RBC DISTRIBUTION WIDTH 16.8 % (11.5-14.5); WHITE BLOOD CELL COUNT 8.1 /CUMM (4.8-10.8)
[2017-09-30 09:30] LABS: PLATELET COUNT 56 /CUMM (130-400)
--- NOTE | 2017-09-30 10:44 | RADIOLOGY REPORT ---
EXAMINATION: XR PORTABLE CHEST CLINICAL INFORMATION: Bilateral crackles on chest. Evaluate lung shields for pneumonia or pulmonary edema. COMPARISON: Several prior chest x-rays, most recent of which is dated 09/24/2017. TECHNIQUE: Portable AP semierect view of the chest was obtained. FINDINGS: The cardiomediastinal silhouette appears enlarged, consistent with AP semiupright positioning of the film. Ectasia of the ascending and descending aorta is seen. Low lung volumes are noted. Diffuse increased reticular opacities are seen in the lungs with mild central vascular congestion and trace right-sided fissural fluid, suspicious for pulmonary edema. Superimposed bibasilar subsegmental atelectasis is suspected. No pneumothorax is seen. Bony structures are unremarkable. IMPRESSION: 1. Suspect mild pulmonary edema. Clinical correlation requested. 2. Bibasilar subsegmental atelectasis.
--- NOTE | 2017-09-30 14:10 | PN- Infect Dx ---
Subjective Subjective: Afebrile without complaints Objective Last 24 Hrs of Vital Signs/I&O Vital Signs Date Time Temp Pulse Resp B/P B/P Pulse O2 O2 Flow FiO2 Mean Ox Delivery Rate 09/30 0937 98.1 76 20 138/78 09/30 0936 98.1 76 20 138/78 09/30 0936 98.1 76 20 138/78 / 0557 98.1 76 20 138/78 94 Nasal 2.0L Cannula 09/30 0145 98.3 73 22 118/84 94 Nasal 2.0L Cannula 09/30 0000 94 Nasal 2.0L Cannula 09/29 2114 98.0 71 18 128/76 94 Nasal 2.0L Cannula 09/29 1830 98.0 69 20 120/76 95 Nasal 2.0L Cannula 09/29 1600 Nasal 2.0L Cannula 09/29 1437 97.4 77 20 130/74 95 Nasal Cannula Intake & Output 09/30 1600 09/30 0800 09/30 0000 Intake Total 240 Output Total 450 Balance 240 -450 Intake, Oral 240 Number 2 Bowel Movements Output, Urine 450 Patient 214 lb Weight Physical Exam Other Physical Findings: He is lethargic but easily arousable and responsive, in no acute distress Lungs bibasilar crackles Heart regular rhythm with no murmur Abdomen is soft, nontender with positive bowel sounds Extremities no cyanosis, clubbing or edema Results Last 24 Hours of Lab Results: Laboratory Tests 10/01 711 Chemistry Sodium (137 - 145 mmol/L) 142 Potassium (3.5 - 5.1 mmol/L) 4.2 Chloride (98 - 107 mmol/L) 107 Carbon Dioxide (22 - 30 mmol/L) 27 Anion Gap (5 - 16) 8 BUN (9 - 20 mg/dL) 24 H Creatinine (0.7 - 1.2 mg/dL) 0.8 Estimated GFR (>60 ml/min) > 60 BUN/Creatinine Ratio (7 - 25 %) 30.0 H Hematology CBC w Diff NO MAN DIFF REQ WBC (4.8 - 10.8 /CUMM) 8.1 RBC (4.70 - 6.10 /CUMM) 4.80 Hgb (14.0 - 18.0 G/DL) 15.3 Hct (42 - 52 %) 46.3 MCV (80.0 - 94.0 FL) 96.5 H MCH (27.0 - 31.0 PG) 31.8 H MCHC (33.0 - 37.0 G/DL) 33.0 RDW (11.5 - 14.5 %) 16.8 H Plt Count (130 - 400 /CUMM) 56 L MPV (7.4 - 10.4 FL) 10.9 H Gran % (42.2 - 75.2 %) 71.2 Lymphocytes % (20.5 - 51.1 %) 14.7 L Monocytes % (1.7 - 9.3 %) 8.7 Eosinophils % (0 - 5 %) 4.8 Basophils % (0.0 - 2.0 %) 0.6 Absolute Granulocytes (1.4 - 6.5 /CUMM) 5.8 Absolute Lymphocytes (1.2 - 3.4 /CUMM) 1.2 Absolute Monocytes (0.10 - 0.60 /CUMM) 0.7 H Absolute Eosinophils (0.0 - 0.7 /CUMM) 0.4 Absolute Basophils (0.0 - 0.2 /CUMM) 0.1 Last 24 Hours of Sonu Results: Ascitic fluid culture September 25 negative Recent Imaging Studies: Chest x-ray September 30 reveals mild pulmonary edema with bibasilar subsegmental atelectasis Assessment/Plan ID Impression: Stable, with temperatures and white blood cell count remaining normal, off antibiotics, with recent workup for an infectious process negative. His chest x -ray suggests possible pulmonary edema and he is to be given a dose of Lasix today. Suggestion: 1. Further management of possible pulmonary edema per Medicine 2. Continue to follow off antibiotics Will no longer follow at this time but please call with any questions
[2017-09-30 16:16] VITALS: BP 120/62
[2017-09-30 21:52] VITALS: BP 122/72
[2017-10-01 05:37] VITALS: BP 124/78
--- NOTE | 2017-10-01 07:18 | PN- Housestaff ---
Stewart KENT,Penelope 10/01/17 0718: Subjective Follow-up For: FEVER,CAP Complaints: no complaints Subjective: Patient seen and examined at bedside. No overnight events. He complains of feeling lousy. He denies chest pain, chest pressure, nausea, vomiting, abdominal pain. Review of Systems Constitutional: Reports: weakness. Cardiovascular: Reports: no symptoms. Respiratory: Reports: no symptoms. Gastrointestinal: Reports: no symptoms. Genitourinary: Reports: no symptoms. Musculoskeletal: Reports: no symptoms. Objective Last 24 Hrs of Vital Signs/I&O Vital Signs Date Time Temp Pulse Resp B/P B/P Pulse O2 O2 Flow FiO2 Mean Ox Delivery Rate 10/01 09 20 92 Room Air 10/01 904 22 93 Nasal 1.5L Cannula 10/01 904 22 94 Nasal 1.5L Cannula 10/01 0830 94 Nasal 1.5L Cannula 10/01 0537 97.8 89 20 124/78 94 Nasal 2.0L Cannula 10/01 0000 Nasal 1.5L Cannula 09/30 2152 97.9 71 20 122/72 93 Nasal 2.0L Cannula 09/30 1616 98.5 70 20 120/62 93 Nasal Cannula 09/30 1600 Nasal 1.5L Cannula Intake & Output 10/01 1600 10/01 0800 10/01 0000 Intake Total 120 480 Output Total 100 350 Balance -100 120 130 Intake, Oral 120 480 Number 1 3 1 Bowel Movements Output, Urine 100 350 Patient 208 lb Weight Physical Exam General Appearance: Alert, Oriented X3, Cooperative, No Acute Distress Cardiovascular: Regular Rate, Normal S1, Normal S2, No Murmurs Lungs: Normal Air Movement Abdomen: Normal Bowel Sounds, Soft, No Tenderness, No Hepatospenomegaly Neurological: Normal Tone, Sensation Intact, Cranial Nerves 3-12 NL, PATIENT HAS PERIODS OF CONFUSION. hIS AWAKE, ALERT, ORIENTED 2. Current Medications: Current Medications Sig/Dimple Start time Last Medication Dose Route Stop Time Status Admin Furosemide 20 MG DAILY 10/01 1015 AC 10/01 PO 1118 Insulin Aspart 0 TIDAC 09/25 1700 AC 09/29 SC 1702 Lactobacillus 1 CAP BID 09/23 1000 AC 10/01 Acidophilus PO 0834 Lactulose 20 GM BID 09/30 1000 AC 09/30 PO 2102 Losartan Potassium 50 MG DAILY 09/19 1000 AC 10/01 PO 0834 Melatonin 3 MG AT BEDTIME PRN 09/30 1545 AC PO Nadolol 20 MG DAILY 09/19 1000 AC 10/01 PO 0835 Rifaximin 550 MG BID 09/20 2200 AC 10/01 PO 0834 Spironolactone 50 MG DAILY 10/01 1000 AC 10/01 PO 0835 Tamsulosin HCl 0.4 MG DAILY 09/19 1000 AC 10/01 PO 0835 Thiamine HCl 100 MG DAILY 09/26 1000 AC 10/01 PO 0834 Last 24 Hrs of Lab/Sonu Results Last 24 Hrs of Labs/Mics: Laboratory Tests 10/01/17 09: CBC w Diff NO MAN DIFF REQ, RBC 5.22, MCV 95.5 H, MCH 31.9 H, MCHC 33.4, RDW 16.6 H, MPV 10.9 H, Gran % 73.0, Lymphocytes % 14.7 L, Monocytes % 8.3, Eosinophils % 4.0, Basophils % 0, Absolute Granulocytes 6.1, Absolute Lymphocytes 1.2, Absolute Monocytes 0.7 H, Absolute Eosinophils 0.3, Absolute Basophils 0 10/01/17 0658: Anion Gap 8, Estimated GFR > 60, BUN/Creatinine Ratio 31.3 H Assessment/Plan Assessment: Patient is 77-year-old male with past medical history significant for obg-cgtszwa-[id number] diabetes, hypertension, cecal polyp status post right colectomy, BPH, alcoholic liver cirrhosis, remote history of alcohol abuse 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 Assessment and plan 1. Community-acquired pneumonia resolved * patient had right upper lobe pneumonia treated with IV ceftriaxone and azithromycin. he was started on cefuroxime but patient developed high-grade fever with diarrhea. Chest x-ray initially questionable for pneumonia and the repeat was negative. Cultures so far negative. Ultrasound abdomen/HIDA scan/ MRI abdomen-benign. Patient got ultrasound abdomen Doppler to rule out portal vein thrombosis. Report suggested decreased portal vein flow. Patient had a CT abdomen and pelvis with portal venous phase flow which was negative for portal vein thrombosis. There is also discrepancy in this ultrasound abdomen and CAT scan regarding cirrhotic appearance of his liver. We reviewed all the images with the radiologist, secondary causes of portal hypertension need to be ruled out. * On CTA patient has central lymphadenopathy. Malignancy needs to be ruled out. Seen by pulmonology who suggested outpatient PET scan. * On examination of lungs -patient still has bilateral mild crackles more on the left lower base. Patient's x-rays chest x-ray showed pulmonary edema and be given 20 mg of IV Lasix. We will repeat chest x-ray today. And start him on 20 mg of Lasix daily. 2. Hepatic encephalopathy/fever * upon admission patient was confused. This can be secondary due to pneumonia/ alcoholic liver disease. Patient mentation is waxing and waning. He is awake, alert and oriented 2 area we will involve neurology to help us with the altered mental status. . * 3. Chronic diarrhea * this can be secondary due to right hemicolectomy done for colonic polyp. Patient initially had multiple diarrheal episode which was controlled with lactobacillus and loperamide. C. difficile was negative. Patient diarrhea improved. Patient had 1 bowel movement in last 24 hours. We will reduce the lactulose to twice a day, continue rifaximin, and increase the dose of spironolactone [patient abdomen size appears to be increased compared to last week]. * We will titrate lactulose to around 3 bowel movements per day. 4. Avoid NSAID, hydrochlorothiazide, omeprazole Code-full code Diet-diabetic diet Physical therapy worked with him who suggested short-term rehabilitation. Patient Daughter to be informed about any updates [phone] Problem List: 1. History of colon polyps 2. Ascites 3. Thrombocytopenia 4. Change in mental status Pain Ratin Pain Location: None Pain Goal: Remain pain free Pain Plan: Tylenol Tomorrow's Labs & Rationales: CBC, BEP Taye KENT,Nae 10/01/17 1202: Attending MD Review Statement Attending Statement Attending MD Statement: examined this patient, discuss w/resident/PA/[employer], agreed w/resident/PA/[employer], reviewed EMR data (avail), discussed with nursing, discussed with case mgmt, reviewed images, amended to note Attending Assessment/Plan: Patient seen and examined, he sitting in the chair. Oxygen requirement has improved. Patient seems to be more awake today. Vital Signs Date Time Temp Pulse Resp B/P B/P Pulse O2 O2 Flow FiO2 Mean Ox Delivery Rate 10/01 0906 20 92 Room Air 10/01 0905 22 93 Nasal 1.5L Cannula 10/01 0905 22 94 Nasal 1.5L Cannula 10/01 0830 94 Nasal 1.5L Cannula 10/01 0537 97.8 89 20 124/78 94 Nasal 2.0L Cannula 10/01 0000 Nasal 1.5L Cannula 09/30 2152 97.9 71 20 122/72 93 Nasal 2.0L Cannula 09/30 1616 98.5 70 20 120/62 93 Nasal Cannula 09/30 1600 Nasal 1.5L Cannula on exam; aox2, nad. cv; s1, s2, rrr resp; mild b/l basal crackles but improved. abd; soft, distended, bs+, nt ext; trace edema. Laboratory Tests 10/01 10/01 0907 0658 Chemistry Sodium (137 - 145 mmol/L) 142 Potassium (3.5 - 5.1 mmol/L) 4.0 Chloride (98 - 107 mmol/L) 107 Carbon Dioxide (22 - 30 mmol/L) 27 Anion Gap (5 - 16) 8 BUN (9 - 20 mg/dL) 25 H Creatinine (0.7 - 1.2 mg/dL) 0.8 Estimated GFR (>60 ml/min) > 60 BUN/Creatinine Ratio (7 - 25 %) 31.3 H Hematology CBC w Diff NO MAN DIFF REQ WBC (4.8 - 10.8 /CUMM) 8.3 RBC (4.70 - 6.10 /CUMM) 5.22 Hgb (14.0 - 18.0 G/DL) 16.7 Hct (42 - 52 %) 49.9 MCV (80.0 - 94.0 FL) 95.5 H MCH (27.0 - 31.0 PG) 31.9 H MCHC (33.0 - 37.0 G/DL) 33.4 RDW (11.5 - 14.5 %) 16.6 H Plt Count (130 - 400 /CUMM) 68 L MPV (7.4 - 10.4 FL) 10.9 H Gran % (42.2 - 75.2 %) 73.0 Lymphocytes % (20.5 - 51.1 %) 14.7 L Monocytes % (1.7 - 9.3 %) 8.3 Eosinophils % (0 - 5 %) 4.0 Basophils % (0.0 - 2.0 %) 0 Absolute Granulocytes (1.4 - 6.5 /CUMM) 6.1 Absolute Lymphocytes (1.2 - 3.4 /CUMM) 1.2 Absolute Monocytes (0.10 - 0.60 /CUMM) 0.7 H Absolute Eosinophils (0.0 - 0.7 /CUMM) 0.3 Absolute Basophils (0.0 - 0.2 /CUMM) 0 A/P; 77 y/o M with pmh sig for [id number]-[id number] diabetes, hypertension, cecal polyp status post right colectomy, BPH, alcoholic liver cirrhosis, remote history of alcohol abuse 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 Also developed acute kidney injury, also has cirrhosis, imaging studies were negative for portal vein thrombosis. Patient also developed mild pulmonary edema and he was started on Lasix and the dose of spironolactone was increased. Fluid status improving. We'll switch him to oral Lasix today will keep the spironolactone at the current dose. We'll start anywhere from your Lasix daily. Continue to monitor electrolytes and creatinine. Patient still somewhat confused. Will get neurology evaluation. Continue other current medications. DVT prophylaxis: ALPS 2/2 to thrombocytopenia. PT recommends rehab.
[2017-10-01 09:28] LABS: ABSOLUTE BASOPHIL COUNT 0 /CUMM (0.0-0.2); ABSOLUTE EOSINOPHIL COUNT 0.3 /CUMM (0.0-0.7); ABSOLUTE GRANULOCYTE CT 6.1 /CUMM (1.4-6.5); ABSOLUTE LYMPH COUNT 1.2 /CUMM (1.2-3.4); ABSOLUTE MONOCYTE COUNT 0.7 /CUMM (0.10-0.60); BASOPHIL % 0 % (0.0-2.0); HEMATOCRIT 49.9 % (42-52); MEAN CORPUSCULAR HGB 31.9 PG (27.0-31.0); MEAN CORPUSCULAR HGB CONC 33.4 G/DL (33.0-37.0); MEAN CORPUSCULAR VOLUME 95.5 FL (80.0-94.0); MEAN PLATELET VOLUME 10.9 FL (7.4-10.4); RBC DISTRIBUTION WIDTH 16.6 % (11.5-14.5); RED BLOOD CELL CT 5.22 /CUMM (4.70-6.10); WHITE BLOOD CELL COUNT 8.3 /CUMM (4.8-10.8)
[2017-10-01 09:46] LABS: PLATELET COUNT 68 /CUMM (130-400)
[2017-10-01 13:52] VITALS: BP 114/60
--- NOTE | 2017-10-01 13:57 | Cons- Neurology ---
General Information and HPI Consulting Request Date of Consult: 10/01/17 Requested By: Nae Kothari MD Reason for Consult: Weakness and disorientation Source of Information: patient, family, old records Exam Limitations: clinical condition, poor historian History of Present Illness: This is a 77 year old right handed man who I have been asked to see for encephalopathy. He was admitted on the 18 of September, after becoming weak and having a "fever" over 5 days. He was brought to the hospital, treated for an assumed infection, although no evidence for this was found and so antibiotics were stopped. He continues to be weak, hypophonic and disoriented without a clear reason. Per his daughter it was a sudden change. He has known alcoholic cirrhosis that is quite advance and he is on Xifan for this. He denies any focal symptoms or pain. Denies any headaches or dizziness. Has no trouble swallowing. Allergies/Medications Allergies: Coded Allergies: Penicillins (UNKNOWN 11/17/15) Home Med List: Lactulose 20 GRAM/30 ML SOLUTION 20 GM PO TID HEPATIC ENCEPHALOPATHY Metformin HCl 1,000 MG TABLET 1 TAB PO BID DM (Reported) Nadolol 20 MG TABLET 1 TAB PO DAILY LIVER HEALTH (Reported) Omeprazole 20 MG CAPSULE.DR 1 CAP PO DAILY GI (Reported) Rifaximin (Xifaxan) 550 MG TABLET 550 MG PO BID hepatic encephalopathy Tamsulosin HCl 0.4 MG CAP.ER.24H 1 CAP PO DAILY PROSTATE (Reported) Valsartan/Hydrochlorothiazide (Valsartan-Hctz 80-12.5 MG Tab) 80 MG-12.5 MG TABLET 1 TAB PO DAILY HTN (Reported) Current Medications: Current Medications Sig/Dimple Start time Last Medication Dose Route Stop Time Status Admin Furosemide 20 MG DAILY 10/01 1015 AC 10/01 PO 1118 Insulin Aspart 0 TIDAC 09/25 1700 AC 09/29 SC 1702 Lactobacillus 1 CAP BID 09/23 1000 AC 10/01 Acidophilus PO 0834 Lactulose 20 GM BID 09/30 1000 AC 09/30 PO 2102 Losartan Potassium 50 MG DAILY 09/19 1000 AC 10/01 PO 0834 Melatonin 3 MG AT BEDTIME PRN 09/30 1545 AC PO Nadolol 20 MG DAILY 09/19 1000 AC 10/01 PO 0835 Rifaximin 550 MG BID 09/20 2200 AC 10/01 PO 0834 Spironolactone 50 MG DAILY 10/01 1000 AC 10/01 PO 0835 Tamsulosin HCl 0.4 MG DAILY 09/19 1000 AC 10/01 PO 0835 Thiamine HCl 100 MG DAILY 09/26 1000 AC 10/01 PO 0834 Past History Travel History Traveled to [place] past 21 day No Medical History Blood Transfusion Hx: No Neurological: NONE EENT: NONE Cardiovascular: hypertension Respiratory: obstructive sleep apnea Gastrointestinal: esophageal varices cirrhosis ventral hernia Hepatic: NONE Renal: NONE Musculoskeletal: NONE Psychiatric: NONE Endocrine: diabetes Blood Disorders: thrombocytopenia Cancer(s): 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 Surgical History Surgical History: knee replacement (bilateral), colon polyp excision Psychosocial History Services at Home: None Smoking Status: Former Smoker ETOH Use: occasional use Illicit Drug Use: denies illicit drug use Exam & Diagnostic Data Vital Signs and I&O Vital Signs Date Time Temp Pulse Resp B/P B/P Pulse O2 O2 Flow FiO2 Mean Ox Delivery Rate 10/01 0906 20 92 Room Air 10/01 904 22 93 Nasal 1.5L Cannula 10/01 904 22 94 Nasal 1.5L Cannula 10/01 0830 94 Nasal 1.5L Cannula 10/01 0537 97.8 89 20 124/78 94 Nasal 2.0L Cannula 10/01 0000 Nasal 1.5L Cannula 09/30 2152 97.9 71 20 122/72 93 Nasal 2.0L Cannula 09/30 1616 98.5 70 20 120/62 93 Nasal Cannula 09/30 1600 Nasal 1.5L Cannula Intake & Output 10/01 1600 10/01 0800 10/01 0000 Intake Total 670 120 480 Output Total 350 350 Balance 320 120 130 Intake, IV 20 Intake, Oral 650 120 480 Number 1 3 1 Bowel Movements Output, Urine 350 350 Patient 208 lb Weight Physical Exam: Alert but disoriented. Weak and hypophonic. EOMI (some jaundice), MICAELA, no nystagmus, tongue midline without atrophy. Face symmetric. No drift, no clear asterixis. Strength -5/5 throughout. Mild stiffness mainly in legs. No cogwheeling.\\No tremor. Hyporeflexive. FNF normal. +psychomotor retardation. Last 48 Hours of Lab Results: Laboratory Tests 10/01 10/01 0907 0658 Chemistry Sodium (137 - 145 mmol/L) 142 Potassium (3.5 - 5.1 mmol/L) 4.0 Chloride (98 - 107 mmol/L) 107 Carbon Dioxide (22 - 30 mmol/L) 27 Anion Gap (5 - 16) 8 BUN (9 - 20 mg/dL) 25 H Creatinine (0.7 - 1.2 mg/dL) 0.8 Estimated GFR (>60 ml/min) > 60 BUN/Creatinine Ratio (7 - 25 %) 31.3 H Hematology CBC w Diff NO MAN DIFF REQ WBC (4.8 - 10.8 /CUMM) 8.3 RBC (4.70 - 6.10 /CUMM) 5.22 Hgb (14.0 - 18.0 G/DL) 16.7 Hct (42 - 52 %) 49.9 MCV (80.0 - 94.0 FL) 95.5 H MCH (27.0 - 31.0 PG) 31.9 H MCHC (33.0 - 37.0 G/DL) 33.4 RDW (11.5 - 14.5 %) 16.6 H Plt Count (130 - 400 /CUMM) 68 L MPV (7.4 - 10.4 FL) 10.9 H Gran % (42.2 - 75.2 %) 73.0 Lymphocytes % (20.5 - 51.1 %) 14.7 L Monocytes % (1.7 - 9.3 %) 8.3 Eosinophils % (0 - 5 %) 4.0 Basophils % (0.0 - 2.0 %) 0 Absolute Granulocytes (1.4 - 6.5 /CUMM) 6.1 Absolute Lymphocytes (1.2 - 3.4 /CUMM) 1.2 Absolute Monocytes (0.10 - 0.60 /CUMM) 0.7 H Absolute Eosinophils (0.0 - 0.7 /CUMM) 0.3 Absolute Basophils (0.0 - 0.2 /CUMM) 0 /02 0712 Chemistry Sodium (137 - 145 mmol/L) 142 Potassium (3.5 - 5.1 mmol/L) 4.2 Chloride (98 - 107 mmol/L) 107 Carbon Dioxide (22 - 30 mmol/L) 27 Anion Gap (5 - 16) 8 BUN (9 - 20 mg/dL) 24 H Creatinine (0.7 - 1.2 mg/dL) 0.8 Estimated GFR (>60 ml/min) > 60 BUN/Creatinine Ratio (7 - 25 %) 30.0 H Hematology CBC w Diff NO MAN DIFF REQ WBC (4.8 - 10.8 /CUMM) 8.1 RBC (4.70 - 6.10 /CUMM) 4.80 Hgb (14.0 - 18.0 G/DL) 15.3 Hct (42 - 52 %) 46.3 MCV (80.0 - 94.0 FL) 96.5 H MCH (27.0 - 31.0 PG) 31.8 H MCHC (33.0 - 37.0 G/DL) 33.0 RDW (11.5 - 14.5 %) 16.8 H Plt Count (130 - 400 /CUMM) 56 L MPV (7.4 - 10.4 FL) 10.9 H Gran % (42.2 - 75.2 %) 71.2 Lymphocytes % (20.5 - 51.1 %) 14.7 L Monocytes % (1.7 - 9.3 %) 8.7 Eosinophils % (0 - 5 %) 4.8 Basophils % (0.0 - 2.0 %) 0.6 Absolute Granulocytes (1.4 - 6.5 /CUMM) 5.8 Absolute Lymphocytes (1.2 - 3.4 /CUMM) 1.2 Absolute Monocytes (0.10 - 0.60 /CUMM) 0.7 H Absolute Eosinophils (0.0 - 0.7 /CUMM) 0.4 Absolute Basophils (0.0 - 0.2 /CUMM) 0.1 Imaging/Other Studies: No btsin imaging. Abdominal imaging suggestive of advanced cirrhosis. Assessment/Plan Assessment: Possible hepatic encephalopathy. 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 Recommendations: 1. Check CK. 2. Check B12/folate, and Vitamin D. 3. Check Ammonia. 4. EEG 5. At some point should get CT or MRI brain. 6. PT/OT. YC Consult Acknowledgment - Thank you for your consult request.
--- NOTE | 2017-10-01 16:25 | RADIOLOGY REPORT ---
EXAMINATION: XR PORTABLE CHEST CLINICAL INFORMATION: Pulmonary edema. Bilateral crackles COMPARISON: 09/30/2017 at 9:24 AM TECHNIQUE: Portable frontal view of the chest was obtained at 2:34 PM. FINDINGS: Lung volumes remain low. Diffuse coarse interstitial prominence again seen. There continues to be fluid in the right minor fissure. No definite pleural effusion. Cardiomediastinal silhouette remains prominent, likely exaggerated by portable semiupright technique. There are degenerative changes of the bilateral shoulders. IMPRESSION: Low lung volumes with persistent coarse interstitial prominence, likely reflecting pulmonary venous hypertension or mild interstitial pulmonary edema. This appears slightly improved from the prior study.
[2017-10-01 21:11] VITALS: BP 134/60
[2017-10-02 06:20] VITALS: BP 128/56
--- NOTE | 2017-10-02 07:28 | PN- Housestaff ---
Subjective Follow-up For: Community-acquired pneumonia-resolved Chronic diarrhea Fever of unknown origin-resolved Altered mental status second to possible hepatic encephalopathy Complaints: no complaints Subjective: Patient seen and examined at bedside. No overnight events. He denies nausea, vomiting, abdominal pain, fever, headache, chest pain, shortness of breath. Patient is awake, alert, oriented 2. Review of Systems Constitutional: Reports: no symptoms. Cardiovascular: Reports: no symptoms. Respiratory: Reports: no symptoms. Gastrointestinal: Reports: no symptoms. Genitourinary: Reports: no symptoms. Objective Last 24 Hrs of Vital Signs/I&O Vital Signs Date Time Temp Pulse Resp B/P B/P Pulse O2 O2 Flow FiO2 Mean Ox Delivery Rate 10/02 1352 98.8 62 18 126/58 90 Room Air 10/02 0839 94 Room Air 10/02 0819 78 132/80 10/02 0620 97.6 65 18 128/56 91 10/01 2111 97.6 63 18 134/60 92 Room Air Intake & Output 10/02 1600 10/02 0800 10/02 0000 Intake Total 750 480 480 Output Total 200 Balance 550 480 480 Intake, IV 10 Intake, Oral 740 480 480 Number 2 4 2 Bowel Movements Output, Urine 200 Patient 204 lb Weight Physical Exam General Appearance: Alert, Oriented X3, Cooperative, No Acute Distress Cardiovascular: Regular Rate, Normal S1, Normal S2, No Murmurs Lungs: Normal Air Movement Abdomen: Soft, No Tenderness, No Hepatospenomegaly Neurological: Normal Tone, Sensation Intact Extremities: No Edema Current Medications: Current Medications Sig/Dimple Start time Last Medication Dose Route Stop Time Status Admin Furosemide 20 MG DAILY 10/01 1015 AC 10/02 PO 0819 Insulin Aspart 0 TIDAC 09/25 1700 AC 10/02 SC 1206 Lactobacillus 1 CAP BID 09/23 1000 AC 10/02 Acidophilus PO 0819 Lactulose 10 GM DAILY 10/02 1000 AC PO Lactulose 20 GM BID 09/30 1000 DC 10/01 PO 2051 Losartan Potassium 50 MG DAILY 09/19 1000 AC 10/02 PO 0819 Melatonin 3 MG AT BEDTIME PRN 09/30 1545 AC PO Nadolol 20 MG DAILY 09/19 1000 AC 10/02 PO 0819 Patient Medication 1 ED ONE ONE 10/02 1045 DC 10/02 Teaching ED 10/02 1046 1043 Rifaximin 550 MG BID 09/20 2200 AC 10/02 PO 0819 Spironolactone 25 MG DAILY 10/02 1000 AC PO Spironolactone 50 MG DAILY 10/01 1000 DC 10/02 PO 0819 Tamsulosin HCl 0.4 MG DAILY 09/19 1000 AC 10/02 PO 0819 Thiamine HCl 100 MG DAILY 09/26 1000 AC 10/02 PO 0819 Last 24 Hrs of Lab/Sonu Results Last 24 Hrs of Labs/Mics: Laboratory Tests 10/02/17 0600: Anion Gap 10, Estimated GFR > 60, BUN/Creatinine Ratio 27.0 H, CBC w Diff NO MAN DIFF REQ, RBC 4.95, MCV 96.4 H, MCH 32.7 H, MCHC 33.9, RDW 16.9 H, MPV 10.6 H, Gran % 65.2, Lymphocytes % 19.7 L, Monocytes % 9.4 H, Eosinophils % 5.3 H, Basophils % 0.4, Absolute Granulocytes 5.2, Absolute Lymphocytes 1.6, Absolute Monocytes 0.7 H, Absolute Eosinophils 0.4, Absolute Basophils 0 10/01/17 2154: Ammonia 11 Assessment/Plan Assessment: Patient is 77-year-old male with past medical history significant for cog-sbiyxpg-virthkhmp diabetes, hypertension, cecal polyp status post right colectomy, BPH, alcoholic liver cirrhosis, remote history of alcohol abuse 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 Assessment and plan 1. Community-acquired pneumonia resolved * patient had right upper lobe pneumonia treated with IV ceftriaxone and azithromycin. he was started on cefuroxime but patient developed high-grade fever with diarrhea. Chest x-ray initially questionable for pneumonia and the repeat was negative. Cultures so far negative. Ultrasound abdomen/HIDA scan/ MRI abdomen-benign. Patient got ultrasound abdomen Doppler to rule out portal vein thrombosis. Report suggested decreased portal vein flow. Patient had a CT abdomen and pelvis with portal venous phase flow which was negative for portal vein thrombosis. There is also discrepancy in this ultrasound abdomen and CAT scan regarding cirrhotic appearance of his liver. We reviewed all the images with the radiologist, secondary causes of portal hypertension need to be ruled out. * On CTA patient has central lymphadenopathy. Malignancy needs to be ruled out. Seen by pulmonology who suggested outpatient PET scan. * On examination of lungs -patient's lungs clear. We will continue Lasix 20 and reduce the dose of spironolactone to 25 mg. 2. Hepatic encephalopathy/fever * upon admission patient was confused. Patient mentation is waxing and waning. He is awake, alert and oriented 2 patient was seen by neurology who suggested that his altered mental status can be secondary due to hepatic encephalopathy/ hepato-cerebellar degeneration. Advised EEG. We will get MRI brain and EEG. His CK, folate, ammonia levels are normal. vitamin D levels are low. We will replace the same. We will involve neurology to help us with the altered mental status. 3. Chronic diarrhea * this can be secondary due to right hemicolectomy done for colonic polyp. Patient initially had multiple diarrheal episode which was controlled with lactobacillus and loperamide. C. difficile was negative. Patient diarrhea improved. Patient had 6 bowel movement in last 24 hours. We will reduce the lactulose dose, continue rifaximin, * We will titrate lactulose to around 3 bowel movements per day. 4. Avoid NSAID, hydrochlorothiazide, omeprazole Code-full code Diet-diabetic diet Physical therapy worked with him who suggested short-term rehabilitation. Patient Daughter to be informed about any updates [phone] Problem List: 1. Esophageal varices 2. Ascites 3. Thrombocytopenia 4. Change in mental status 5. Fever Pain Ratin Pain Location: NONE Pain Goal: Remain pain free Pain Plan: Tylenol Tomorrow's Labs & Rationales: CBC,BEP
[2017-10-02 08:02] LABS: ABSOLUTE BASOPHIL COUNT 0 /CUMM (0.0-0.2); ABSOLUTE EOSINOPHIL COUNT 0.4 /CUMM (0.0-0.7); ABSOLUTE GRANULOCYTE CT 5.2 /CUMM (1.4-6.5); ABSOLUTE LYMPH COUNT 1.6 /CUMM (1.2-3.4); ABSOLUTE MONOCYTE COUNT 0.7 /CUMM (0.10-0.60); BASOPHIL % 0.4 % (0.0-2.0); EOSINOPHIL % 5.3 % (0-5); GRANULOCYTE % 65.2 % (42.2-75.2); HEMATOCRIT 47.7 % (42-52); MEAN CORPUSCULAR HGB 32.7 PG (27.0-31.0); MEAN CORPUSCULAR HGB CONC 33.9 G/DL (33.0-37.0); MEAN CORPUSCULAR VOLUME 96.4 FL (80.0-94.0); MEAN PLATELET VOLUME 10.6 FL (7.4-10.4); PLATELET COUNT 75 /CUMM (130-400); RBC DISTRIBUTION WIDTH 16.9 % (11.5-14.5); RED BLOOD CELL CT 4.95 /CUMM (4.70-6.10); WHITE BLOOD CELL COUNT 7.9 /CUMM (4.8-10.8)
--- NOTE | 2017-10-02 12:08 | PN- Att Addend ---
Attending Addendum Attending Brief Note Patient seen and examined, feels overall better. Denies any complaints. Still having loose BMs. BUn slightly went up. Vital Signs Date Time Temp Pulse Resp B/P B/P Pulse O2 O2 Flow FiO2 Mean Ox Delivery Rate 10/02 0839 94 Room Air 10/02 0819 78 132/80 10/02 0620 97.6 65 18 128/56 91 10/01 2111 97.6 63 18 134/60 92 Room Air 10/01 1352 97.8 63 20 114/60 92 Room Air on exam; aox2, nad. cv; s1,s2, rrr resp; clear but decreased bs at bases. abd; soft, distnded, bs+ ext; no edema Laboratory Tests 10/02 10/01 0600 2154 Chemistry Sodium (137 - 145 mmol/L) 142 Potassium (3.5 - 5.1 mmol/L) 3.8 Chloride (98 - 107 mmol/L) 104 Carbon Dioxide (22 - 30 mmol/L) 29 Anion Gap (5 - 16) 10 BUN (9 - 20 mg/dL) 27 H Creatinine (0.7 - 1.2 mg/dL) 1.0 Estimated GFR (>60 ml/min) > 60 BUN/Creatinine Ratio (7 - 25 %) 27.0 H Ammonia (9 - 30 umol/L) 11 Hematology CBC w Diff NO MAN DIFF REQ WBC (4.8 - 10.8 /CUMM) 7.9 RBC (4.70 - 6.10 /CUMM) 4.95 Hgb (14.0 - 18.0 G/DL) 16.2 Hct (42 - 52 %) 47.7 MCV (80.0 - 94.0 FL) 96.4 H MCH (27.0 - 31.0 PG) 32.7 H MCHC (33.0 - 37.0 G/DL) 33.9 RDW (11.5 - 14.5 %) 16.9 H Plt Count (130 - 400 /CUMM) 75 L MPV (7.4 - 10.4 FL) 10.6 H Gran % (42.2 - 75.2 %) 65.2 Lymphocytes % (20.5 - 51.1 %) 19.7 L Monocytes % (1.7 - 9.3 %) 9.4 H Eosinophils % (0 - 5 %) 5.3 H Basophils % (0.0 - 2.0 %) 0.4 Absolute Granulocytes (1.4 - 6.5 /CUMM) 5.2 Absolute Lymphocytes (1.2 - 3.4 /CUMM) 1.6 Absolute Monocytes (0.10 - 0.60 /CUMM) 0.7 H Absolute Eosinophils (0.0 - 0.7 /CUMM) 0.4 Absolute Basophils (0.0 - 0.2 /CUMM) 0 A/P; 77 y/o M with pmh sig for sav-paqngot-lbgahoquf diabetes, hypertension, cecal polyp status post right colectomy, BPH, alcoholic liver cirrhosis, remote history of alcohol abuse 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 Also developed acute kidney injury, also has cirrhosis, imaging studies were negative for portal vein thrombosis. Patient also developed mild pulmonary edema and he was started on Lasix and the dose of spironolactone was increased. BUN slightly up today. Still having large amounts of loose bowel movements. Will cut back on the dose of Spiriva lactone and lactulose. We'll continue to monitor creatinine and electrolytes. Appreciate neurology input. We'll follow-up on brain MRI and EEG results. Overall mental state is improving so his oxygenation and breathing. Continue all other current mx. Dvt px; ALPS.
--- NOTE | 2017-10-02 12:30 | MRI REPORT ---
EXAMINATION: MR BRAIN WITHOUT CONTRAST CLINICAL INFORMATION: 77-year-old man with hepatic encephalopathy. COMPARISON: 09/24/[address], 02/26/2014 brain MRI TECHNIQUE: MRI of the brain without contrast was obtained using routine sequences. FINDINGS: Fairly extensive scattered patchy and punctate foci of increased T2 signal are seen throughout the supratentorial and pontine white matter. A chronic lacunar infarct is seen in the left centrum semiovale. Scattered areas of susceptibility artifact are seen in the thalami and parietal and occipital lobes. No periinsular or thalamic DWI or FLAIR signal changes are seen. No intracranial mass, intracerebral edema, intra-axial blood products, midline shift, or extra-axial collection is visualized. The ventricles and sulcal spaces are diffusely prominent due to chronic volume loss. Normal arterial and venous vascular flow voids are present. Mild mucosal thickening is seen in the ethmoid air cells and there is patchy opacification of right mastoid tip cells. IMPRESSION: No imaging evidence of an acute intracranial process. Chronic microhemorrhages are seen throughout the brain and can been associated with hepatic encephalopathy.
[2017-10-02 13:52] VITALS: BP 126/58
[2017-10-02 22:23] VITALS: BP 120/72
[2017-10-03 06:00] VITALS: BP 110/68
--- NOTE | 2017-10-03 07:21 | PN- Housestaff ---
Stewart KENT,Penelope 10/03/17 0721: Subjective Follow-up For: Altered mental status Complaints: feeling weak Subjective: Patient seen and examined at bedside. Overnight patient had decrease in his saturation up to 84% and hence nasal oxygen of 2 L was started. He denies shortness of breath, chest pain, nausea, vomiting, abdominal pain. Patient had 7 loose bowel movements over 24 hours. Review of Systems Constitutional: Reports: no symptoms. Cardiovascular: Reports: no symptoms. Respiratory: Reports: no symptoms. Gastrointestinal: Reports: no symptoms. Genitourinary: Reports: no symptoms. Musculoskeletal: Reports: no symptoms. Objective Last 24 Hrs of Vital Signs/I&O Vital Signs Date Time Temp Pulse Resp B/P B/P Pulse O2 O2 Flow FiO2 Mean Ox Delivery Rate 10/03 0702 58 10/03 0600 97.0 54 16 110/68 98 Nasal 2.0L Cannula 10/03 0000 92 Nasal 2.0L Cannula 10/02 2223 97.9 64 18 120/72 92 Nasal 2.0L Cannula 10/02 1600 94 Room Air 10/02 1352 98.8 62 18 126/58 90 Room Air 10/02 0839 94 Room Air 10/02 0819 78 132/80 Intake & Output 10/03 0800 10/03 0000 10/02 1600 Intake Total 60 750 Output Total 3 200 Balance 57 550 Intake, IV 10 Intake, Oral 60 740 Number 1 1 2 Bowel Movements Output, Stool 1 Output, Urine 2 200 Patient 204 lb Weight Physical Exam General Appearance: Alert, Oriented X3, Cooperative, No Acute Distress Cardiovascular: Regular Rate, Normal S1, Normal S2, No Murmurs Lungs: Clear to Auscultation Abdomen: Soft, No Tenderness, No Hepatospenomegaly Neurological: Normal Speech, Strength at 5/5 X4 Ext, Normal Tone, Sensation Intact Extremities: No Cyanosis, No Edema, Normal Pulses Current Medications: Current Medications Sig/Dimple Start time Last Medication Dose Route Stop Time Status Admin Furosemide 20 MG DAILY 10/01 1015 AC 10/02 PO 0819 Insulin Aspart 0 TIDAC 09/25 1700 AC 10/02 SC 1206 Lactobacillus 1 CAP BID 09/23 1000 AC 10/02 Acidophilus PO 2132 Lactulose 10 GM DAILY 10/02 1000 AC PO Lactulose 20 GM BID 09/30 1000 DC 10/01 PO 2051 Losartan Potassium 50 MG DAILY 09/19 1000 AC 10/02 PO 0819 Melatonin 3 MG AT BEDTIME PRN 09/30 1545 AC 10/02 PO 2133 Nadolol 20 MG DAILY 09/19 1000 AC 10/02 PO 0819 Patient Medication 1 ED ONE ONE 10/02 1045 DC 10/02 Teaching ED 10/02 1046 1043 Rifaximin 550 MG BID 09/20 2200 AC 10/02 PO 2133 Spironolactone 25 MG DAILY 10/02 1000 AC PO Spironolactone 50 MG DAILY 10/01 1000 DC 10/02 PO 0819 Tamsulosin HCl 0.4 MG DAILY 09/19 1000 AC 10/02 PO 0819 Thiamine HCl 100 MG DAILY 09/26 1000 AC 10/02 PO 0819 Last 24 Hrs of Lab/Sonu Results Last 24 Hrs of Labs/Mics: Laboratory Tests 10/03/17 0614: Sodium Pending, Potassium Pending, Chloride Pending, Carbon Dioxide Pending, Anion Gap Pending, BUN Pending, Creatinine Pending, BUN/Creatinine Ratio Pending , CBC w Diff Pending, WBC Pending, RBC Pending, Hgb Pending, Hct Pending, MCV Pending, MCH Pending, MCHC Pending, RDW Pending, Plt Count Pending, MPV Pending Assessment/Plan Assessment: Patient is 77-year-old male with past medical history significant for mmm-qlrwqbu-drsfjojjm diabetes, hypertension, cecal polyp status post right colectomy, BPH, alcoholic liver cirrhosis, remote history of alcohol abuse 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 Assessment and plan 1. Community-acquired pneumonia resolved * patient had right upper lobe pneumonia treated with IV ceftriaxone and azithromycin. he was started on cefuroxime but patient developed high-grade fever with diarrhea. Chest x-ray initially questionable for pneumonia and the repeat was negative. Cultures so far negative. Ultrasound abdomen/HIDA scan/ MRI abdomen-benign. Patient got ultrasound abdomen Doppler to rule out portal vein thrombosis. Report suggested decreased portal vein flow. Patient had a CT abdomen and pelvis with portal venous phase flow which was negative for portal vein thrombosis. There is also discrepancy in this ultrasound abdomen and CAT scan regarding cirrhotic appearance of his liver. We reviewed all the images with the radiologist, secondary causes of portal hypertension need to be ruled out. * On CTA patient has central lymphadenopathy. Malignancy needs to be ruled out. Seen by pulmonology who suggested outpatient PET scan. * On examination of lungs -patient's lungs clear. We will continue Lasix 20 and spironolactone 25 mg 2. Hepatic encephalopathy/fever * upon admission patient was confused. Patient mentation is waxing and waning. He is awake, alert and oriented 2. patient was seen by neurology who suggested that his altered mental status can be secondary due to hepatic encephalopathy/ hepato-cerebellar degeneration. Advised EEG. brain MRI-negative. His CK, folate, ammonia levels are normal. vitamin D levels are low. We will replace the same. We will involve neurology to help us with the altered mental status. 3. Chronic diarrhea * this can be secondary due to right hemicolectomy done for colonic polyp. Patient initially had multiple diarrheal episode which was controlled with lactobacillus and loperamide. C. difficile was negative. Patient diarrhea improved. Patient had 7 bowel movement in last 24 hours. We will reduce the lactulose dose, continue rifaximin. * We will titrate lactulose to around 3 bowel movements per day. 4. Avoid NSAID, hydrochlorothiazide, omeprazole Code-full code Diet-regular diet Physical therapy worked with him who suggested short-term rehabilitation. Patient Daughter to be informed about any updates [phone] Imaging done so far Chest x-ray September 18 Thickening of the central bronchial interstitium which could be due to airways inflammation from viral/atypical infection. Pulmonary interstitial edema and venous congestion also possible. CTA September 18 There is some limitation from respiratory motion however given this there is no convincing evidence of a filling defect to represent a pulmonary embolism.If suspicion remains high then consider extremity Dopplers and/or VQ scan. Overall increased interstitial pattern in the lungs. Findings may suggest interstitial edema. In addition some focal airspace disease in the right upper lobe and right base represent edema or areas of infiltrate. Also on this study very prominent central lymphadenopathy. This may be reactive but malignancy would need to be considered. Recommendation is PET/CT to further evaluate in this patient. Ultrasound abdomen September 20 The liver shows diffuse heterogeneous echotexture consistent with clinically known cirrhosis.The gallbladder wall shows circumferential diffuse thickening presence of cholesterol crystal and multiple calculi, similar to prior study. Given the presence of ascites, wall thickening is likely related to surrounding fluid. No Rodriguez's sign noted. CT abdomen and pelvis with oral contrast September 20 1. Small volume ascites is noted. 2. Moderate splenomegaly. 3. Mildly enlarged prostate. 4. No CT evidence of any acute intra-abdominal and/or intrapelvic pathology. Specifically, no CT evidence of acute diverticulitis. Chest x-ray September 23 Bilateral bronchovascular prominence may reflect sequela of small airways inflammation or mild vascular congestion. Small patchy opacity at the peripheral left lung base, consider pneumonia or atelectasis. Ultrasound abdomen September 24 1. No acute intracranial abnormality. 2. Moderate ascites. 3. Gallstones with gallbladder wall thickening and tenderness. Correlate clinically concerning acute cholecystitis. Imaging findings are concordant with this diagnosis but is confounded by the ascites and liver disease. CT head September 24 1. No acute intracranial abnormality. Chest x-ray August 2016 Persistent nonspecific prominent linear interstitial lung markings and few patchy superimposed airspace disease, unchanged since 09/23/2017. No definite focal dense alveolar consolidation or pleural effusion. HIDA scan September 25 Visualization of the gallbladder is evidence of a patent cystic duct and strong evidence against the diagnosis of acute cholecystitis. The common bile duct is patent. There is significant impairment in liver function as evidenced by slow accumulation of activity in the liver and abnormal retention in the liver at 4 hours. Echocardiogram September 25 Normal left and right ventricular systolic function. Mild concentric left ventricular hypertrophy. Moderate Left atrial enlargement. Mild Aortic stenosis. Abdominal MRI in September 25 1. Normal-appearing biliary tract. Specifically, no evidence for biliary obstruction, choledocholithiasis or other remarkable finding. 2. Mild to moderate ascites appears increased from CT scan of 09/20/2017. 3. There are several small cystic structures in the pancreatic tail which can be associated with pancreatitis. The pancreas itself is atrophic with no evidence for ductal dilatation. Abdomen Doppler September 26 Limited evaluation. There is slow hepatopedal flow in the main portal vein. Partial thrombosis cannot be excluded on this study. Further evaluation can be obtained with CT of the abdomen with contrast in the portal venous phase. Chest x-ray September 30 1. Suspect mild pulmonary edema. Clinical correlation requested. 2. Bibasilar subsegmental atelectasis. Chest x-ray October 01 Low lung volumes with persistent coarse interstitial prominence, likely reflecting pulmonary venous hypertension or mild interstitial pulmonary edema. This appears slightly improved from the prior study. Head MRI October 02 No imaging evidence of an acute intracranial process. Chronic microhemorrhages are seen throughout the brain and can been associated with hepatic encephalopathy. Problem List: 1. Ascites 2. Change in mental status 3. Liver cirrhosis Pain Ratin Pain Location: None Pain Goal: Remain pain free Pain Plan: Tylenol Tomorrow's Labs & Rationales: CBC, BEP Taye KENT,Nae 10/03/17 1102: Attending MD Review Statement Attending Statement Attending MD Statement: examined this patient, discuss w/resident/PA/KIER TENDER, agreed w/resident/PA/KIER TENDER, discussed with family, reviewed EMR data (avail), discussed with nursing, discussed with case mgmt, reviewed images, amended to note Attending Assessment/Plan: Patient seen and examined, he had a loose BM this morning. Patient otherwise sitting in the chair. He denies any complaints but says that he wants to go home. Vital Signs Date Time Temp Pulse Resp B/P B/P Pulse O2 O2 Flow FiO2 Mean Ox Delivery Rate 10/03 0955 22 92 Room Air 10/03 0954 22 93 Room Air 10/03 0954 22 94 Nasal 2.0L Cannula 10/03 0817 97.9 66 22 132/80 94 Nasal 2.0L Cannula 10/03 0815 66 132/80 10/03 0800 94 Nasal 2.0L Cannula 10/03 0702 58 10/03 0600 97.0 54 16 110/68 98 Nasal 2.0L Cannula 10/03 0000 92 Nasal 2.0L Cannula 10/02 2223 97.9 64 18 120/72 92 Nasal 2.0L Cannula 10/02 1600 94 Room Air 10/02 1352 98.8 62 18 126/58 90 Room Air on exam; aox2, nad. cv; s1, s2, rrr resp; clear abd; soft, nt, bs+ ext; no edema Laboratory Tests 04/05 0614 Chemistry Sodium (137 - 145 mmol/L) 141 Potassium (3.5 - 5.1 mmol/L) 4.1 Chloride (98 - 107 mmol/L) 105 Carbon Dioxide (22 - 30 mmol/L) 27 Anion Gap (5 - 16) 8 BUN (9 - 20 mg/dL) 30 H Creatinine (0.7 - 1.2 mg/dL) 1.0 Estimated GFR (>60 ml/min) > 60 BUN/Creatinine Ratio (7 - 25 %) 30.0 H Hematology CBC w Diff NO MAN DIFF REQ WBC (4.8 - 10.8 /CUMM) 7.5 RBC (4.70 - 6.10 /CUMM) 4.78 Hgb (14.0 - 18.0 G/DL) 15.6 Hct (42 - 52 %) 46.2 MCV (80.0 - 94.0 FL) 96.8 H MCH (27.0 - 31.0 PG) 32.7 H MCHC (33.0 - 37.0 G/DL) 33.7 RDW (11.5 - 14.5 %) 16.8 H Plt Count (130 - 400 /CUMM) 75 L MPV (7.4 - 10.4 FL) 11.6 H Gran % (42.2 - 75.2 %) 62.1 Lymphocytes % (20.5 - 51.1 %) 19.0 L Monocytes % (1.7 - 9.3 %) 12.2 H Eosinophils % (0 - 5 %) 6.0 H Basophils % (0.0 - 2.0 %) 0.7 Absolute Granulocytes (1.4 - 6.5 /CUMM) 4.7 Absolute Lymphocytes (1.2 - 3.4 /CUMM) 1.4 Absolute Monocytes (0.10 - 0.60 /CUMM) 0.9 H Absolute Eosinophils (0.0 - 0.7 /CUMM) 0.4 Absolute Basophils (0.0 - 0.2 /CUMM) 0.1 A/P; 77 y/o M with pmh sig for kkt-comskhs-bbeflkukf diabetes, hypertension, cecal polyp status post right colectomy, BPH, alcoholic liver cirrhosis, remote history of alcohol abuse 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 Also developed acute kidney injury, also has cirrhosis, imaging studies were negative for portal vein thrombosis. Patient also developed mild pulmonary edema and he was started on Lasix and spironolactone. Brain MRI is negative for any acute changes. EEG results are still pending. CK and ammonia levels are normal. Slightly low folate levels therefore will start the patient on folic acid replacement. So far creatinine is stable. Patient has been reported to be hypoxic overnight therefore we will give him 1 dose of IV Lasix this morning. We'll keep him on slightly higher dose of spironolactone while carefully watching his electrolytes and creatinine. Patient encouraged to do incentive spirometry and worked with physical therapy. We are going to hold lactulose today. I'm not sure if using antidiarrheals is ideal in a patient who has cirrhosis but please double check for GI. We should rule out C. difficile 1 more time anyways. Continue other current management. DVT px; ALPS 2/2 to thrombocytopenia. D/W patient's at bedside. Addendum: Went back and spoke with patient's family again. Patient seems to be not improving and actually somewhat more lethargic today family requested that patient should be transferred to [facility]. Which we also agree that it is a good idea that he needs a higher level of care at this time. We called [facility] initially spoke with the liver service. They recommended patient should be admitted to hospitalist service at [facility] and liver service will consult. I called the hospitalist service and patient has been accepted. Patient to be transferred to [facility] for further workup.
[2017-10-03 08:13] LABS: ABSOLUTE BASOPHIL COUNT 0.1 /CUMM (0.0-0.2); ABSOLUTE EOSINOPHIL COUNT 0.4 /CUMM (0.0-0.7); ABSOLUTE GRANULOCYTE CT 4.7 /CUMM (1.4-6.5); ABSOLUTE LYMPH COUNT 1.4 /CUMM (1.2-3.4); ABSOLUTE MONOCYTE COUNT 0.9 /CUMM (0.10-0.60); BASOPHIL % 0.7 % (0.0-2.0); GRANULOCYTE % 62.1 % (42.2-75.2); HEMATOCRIT 46.2 % (42-52); MEAN CORPUSCULAR HGB 32.7 PG (27.0-31.0); MEAN CORPUSCULAR HGB CONC 33.7 G/DL (33.0-37.0); MEAN CORPUSCULAR VOLUME 96.8 FL (80.0-94.0); MEAN PLATELET VOLUME 11.6 FL (7.4-10.4); PLATELET COUNT 75 /CUMM (130-400); RBC DISTRIBUTION WIDTH 16.8 % (11.5-14.5); RED BLOOD CELL CT 4.78 /CUMM (4.70-6.10); WHITE BLOOD CELL COUNT 7.5 /CUMM (4.8-10.8)
[2017-10-03 08:17] VITALS: BP 132/80
[2017-10-03 13:47] VITALS: BP 96/56
[2017-10-03] MEDS ORDERED: ALDACTONE25 MG PO (14:18)
[2017-10-03] MEDS ORDERED: FUROSEMIDE20 M1 PO (14:18)
[2017-10-03] MEDS ORDERED: LOSARTAN POTASS50 M1 PO (14:31)
[2017-10-03] MEDS ORDERED: FOLIC ACID1 M1 PO (14:31)
[2017-10-03] MEDS ORDERED: VITAMIN B-1100 MG PO (14:31)
--- NOTE | 2017-10-03 15:21 | ELECTROENCEPHALOGRAM REPORT ---
Electroencephalogram Report Electroencephalogram Results Date of service: 10/02/17 Attending MD: Nae Kothari MD [employer] Manager: [facility] EEG Number: [id number] Test Utilizes: 10-20 system, 21 lead 18 channel digital recording Pertinent Hx/Physical/Neuro Findings/Clin Diagnosis: Encephalopathy. Inpatient Medications: Current Medications Sig/Dimple Start time Last Medication Dose Route Stop Time Status Admin Folic Acid 1 MG DAILY 10/03 1109 AC 10/03 PO 1234 Furosemide 20 MG ONCE ONE 10/03 0830 DC 10/03 IV 10/03 0831 0951 Furosemide 20 MG DAILY 10/01 1015 AC 10/02 PO 0819 Insulin Aspart 0 TIDAC 09/25 1700 AC 10/03 SC 1235 Lactobacillus 1 CAP BID 09/23 1000 AC 10/03 Acidophilus PO 0815 Lactulose 10 GM DAILY 10/02 1000 AC PO Losartan Potassium 50 MG DAILY 09/19 1000 AC 10/03 PO 0815 Melatonin 3 MG AT BEDTIME PRN 09/30 1545 AC 10/02 PO 2133 Nadolol 20 MG DAILY 09/19 1000 AC 10/03 PO 0815 Patient Medication 1 ED ONE ONE 10/03 1100 DC 10/03 Teaching ED 10/03 1101 1109 Rifaximin 550 MG BID 09/20 2200 AC 10/03 PO 0814 Spironolactone 50 MG DAILY 10/03 1000 AC PO Spironolactone 25 MG ONCE ONE 10/03 0900 DC 10/03 PO 10/03 0901 0951 Spironolactone 25 MG DAILY 10/02 1000 DC 10/03 PO 0814 Tamsulosin HCl 0.4 MG DAILY 09/19 1000 AC 10/03 PO 0814 Thiamine HCl 100 MG DAILY 09/26 1000 AC 10/03 PO 0814 Interpretation: The recording demonstrates a loss of the normal frequency gradient in wakefulness. There is slowing of the background to 6 hertz bilaterally. There is further slowing in the frontal regions also to 6 Hertz. During drowsiness and sleep these rhythms are intermixed with occasional delta range slow waves. There is are rare periodic sharps. Otherwise no other paroxysmal sharps or spikes. 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
[2017-10-03 15:55] VITALS: BP 96/56
--- NOTE | 2017-10-03 17:54 | Event Note ---
Event Note Event Note: [facility]ate[facility] is going to be transfer to [facility] per the primary team
== END 2017-10-03 20:22 | disposition short-term general hospital (02) | DRG 194 ==
LOC: DELPENDDIS → ERH 16:24 → 2NB 19:59 → ERHI 19:59 → ENRESERV 20:35 → 2NB 20:49 → ENPENDDIS 10-01 10:12 → 2NB 10-03 20:22
PROVIDERS: Internal Medicine; Physician Assistant Medical; Student in an Organized Health Care Education/Training Program
PROC: 0W9G3ZX Drainage of Peritoneal Cavity, Percutaneous Approach, Diagnostic (ICD-10-PCS; principal; 2017-09-25)
DX: J18.9 Pneumonia, unspecified organism (principal); E87.2 Acidosis; N17.9 Acute kidney failure, unspecified; E46 Unspecified protein-calorie malnutrition; D68.4 Acquired coagulation factor deficiency; D69.6 Thrombocytopenia, unspecified; I11.0 Hypertensive heart disease with heart failure; I50.32 Chronic diastolic (congestive) heart failure; K70.40 Alcoholic hepatic failure without coma; K70.31 Alcoholic cirrhosis of liver with ascites; G47.33 Obstructive sleep apnea (adult) (pediatric); R50.2 Drug induced fever; E11.9 Type 2 diabetes mellitus without complications; T36.95XA Adverse effect of unspecified systemic antibiotic, initial encounter; Y92.230 Patient room in hospital as the place of occurrence of the external cause; R59.1 Generalized enlarged lymph nodes; Z90.49 Acquired absence of other specified parts of digestive tract; N40.0 Benign prostatic hyperplasia without lower urinary tract symptoms; Z96.653 Presence of artificial knee joint, bilateral; Z88.0 Allergy status to penicillin; Z79.84 Long term (current) use of oral hypoglycemic drugs; Z85.828 Personal history of other malignant neoplasm of skin; K52.9 Noninfective gastroenteritis and colitis, unspecified; Z86.010 Personal history of colon polyps; Z87.891 Personal history of nicotine dependence
CPT/HCPCS: 2NBSP; 70551; 74181; 84133; 84300; 86618; 87075; 87493; 36415; 36592; 71045; 71046; 74176; 78226; 81001; 82436; 82570; 87040; 87070; 87086; 87147; 87389; 87449; 87450; 87804; 87804-59; 88305; 93005; 93010; 93306; 95816; 96361; 96374; 97110-GO; 97116-GO; 97161-GP; 97166-GO; 97530-GO; A9537; G0480; J0131; J0132; J0456; J0696; J0713; J1815; J1885; J1940; J3370; J3490; J7042; J7060; P9047